=== PATIENT | male | born 1955 | race Two or more races ===

== ENCOUNTER 2020-08-04 07:38 | Outpatient (REF) | payer MEDICARE, SELFPAY ==
--- NOTE | 2020-08-04 | US_ITS ---
EXAMINATION: US RETROPERITONEAL LIMITED (AORTA) CLINICAL INFORMATION: Age 65. Former smoker. Assess for occult abdominal aortic aneurysm. COMPARISON: None. TECHNIQUE: Hamilton-scale, color Doppler and spectral Doppler evaluation of the abdominal aorta. FINDINGS: The measurements of the aorta in maximum AP and transverse dimensions respectively are as follows: FINDINGS: There is no aneurysmal enlargement. There is some focal ectasia proximal abdominal aorta under 3 cm as well as distal abdominal aorta under 3 cm. No periaortic mass or adenopathy. Aortic measurements are as follows: Proximal: 2.8 x 3.1 cm. Mid: 1.7 x 1.8 cm. Distal: 1.6 x 2.0 cm. PSV: 194 cm/s Common iliac arteries: Right: 1.0 x 1.2 cm. Left: 1.0 x 1.0 cm. IMPRESSION: 1. Aorta: Mild focal ectasia or proximal abdominal aorta and distal aorta. No aneurysmal enlargement. 2. Iliacs: Unremarkable.
== END 2020-08-04 07:39 | disposition home or self-care (01) ==
LOC: HO.US 07:38
PROVIDERS: Visit Provider Internal Medicine
DX: Z87.891 Personal history of nicotine dependence (principal)
CPT/HCPCS: 76706

== ENCOUNTER 2020-09-23 07:04 | Outpatient (REF) | payer MEDICARE, SELFPAY ==
[2020-09-23 07:50] LABS: Alanine Aminotransferase 26 U/L (0-40); Albumin Level 4.2 g/dL (3.5-5.0); Alkaline Phosphatase 82 U/L (39-117); Anion Gap 14 (12-20); Aspartate Amino Transferase 17 U/L (5-37); Bilirubin Total 0.5 mg/dL (0.0-1.0); Blood Urea Nitrogen 18 mg/dL (9-16); Carbon Dioxide 26 mmol/L (22-29); Chloride 106 mmol/L (96-108); Cholesterol 139 mg/dL; Estimated Glomerular Filt Rate > 60; Glucose Fasting 181 mg/dL (60-99); HDL Cholesterol 31 mg/dL; LDL Cholesterol Calculated 79 mg/dl; Potassium 4.8 mmol/l (3.3-5.1); Sodium 141 mmol/L (135-145); Total Protein 7.5 g/dL (6.5-8.0); Triglycerides 146 mg/dL
[2020-09-23 08:06] LABS: Creatinine Urine 74.36 mg/dL; Microalbum/Creatinine Ratio Ur 18.8 ug/mg cr
== END 2020-09-23 07:05 | disposition home or self-care (01) ==
LOC: HO.LAB 07:04
PROVIDERS: PCP Internal Medicine; Visit Provider Internal Medicine
DX: E11.42 Type 2 diabetes mellitus with diabetic polyneuropathy (principal)
CPT/HCPCS: 80053; 80061; 82043

== ENCOUNTER → 2020-10-04 11:42 | Outpatient (BNVA) | payer MEDICARE, SELFPAY | PROVIDERS: PCP Internal Medicine; Visit Provider Internal Medicine Endocrinology, Diabetes & Metabolism | DX: Z13.89 Encounter for screening for other disorder (principal) | CPT/HCPCS: Q3014 ==

== ENCOUNTER 2020-11-13 10:43 | Outpatient (REF) | payer MEDICARE, SELFPAY ==
--- NOTE | 2020-11-13 | US_ITS ---
EXAMINATION: US EXTRACRANIAL CAROTID DUPLEX, BILATERAL CLINICAL INFORMATION: This is a 65-year-old male with bilateral carotid artery stenosis. COMPARISON: Comparison is made to a previous study dated 10/07/2019 which demonstrated an occluded right internal carotid artery and 0-49% left internal carotid artery stenosis. TECHNIQUE: Real-time ultrasound and Doppler techniques (integrating B-mode 2-D vascular images, Doppler spectral analysis and color-flow Doppler imaging) were utilized to interrogate the extracranial carotid arteries, the vertebral arteries and proximal subclavian arteries bilaterally. The degree of stenosis is determined by criteria similar to NASCET. FINDINGS: Right Side: 1. There is moderate atherosclerotic plaque seen in the bifurcation/proximal ICA region. 2. The common carotid artery PSV proximally is 66 cm/s and distally 57 cm/s. 3. The proximal internal carotid artery is occluded. 4. The proximal external carotid artery PSV is 83 cm/s. 5. The vertebral artery shows antegrade flow. 6. The subclavian artery waveforms are normal. Left Side: 1. There is mild atherosclerotic plaque seen in the bifurcation/proximal ICA region. 2. The common carotid artery PSV proximally is 124 cm/s and distally 69 cm/s. 3. The proximal internal carotid artery velocities are 41 cm/s systolic and 12 cm/s diastolic. 4. The proximal external carotid artery PSV is 89 cm/s. 5. The vertebral artery shows antegrade flow. 6. The subclavian artery waveforms are normal. US/US carotid duplex BI IMPRESSION: 1. RIGHT: The right internal carotid artery is occluded. This appears unchanged when compared to the previous study dated 10/07/2019. 2. LEFT: Minimal, non-hemodynamically significant stenosis of the proximal left internal carotid artery corresponding to a 0-49% stenosis by velocity criteria. 3. There is no change in the category severity of disease when compared to the previous study dated 10/07/2019.
== END 2020-11-13 10:44 | disposition home or self-care (01) ==
LOC: HO.US 10:43
PROVIDERS: Visit Provider Surgery Vascular Surgery
DX: I65.23 Occlusion and stenosis of bilateral carotid arteries (principal)
CPT/HCPCS: 93880

== ENCOUNTER → 2020-11-21 13:52 | Outpatient (BNVA) | payer MEDICARE, SELFPAY | PROVIDERS: PCP Internal Medicine; Visit Provider Surgery Vascular Surgery | DX: I65.23 Occlusion and stenosis of bilateral carotid arteries (principal) | CPT/HCPCS: 99212 ==

== ENCOUNTER → 2021-02-28 10:45 | Outpatient (BNVA) | payer MEDICARE, SELFPAY | PROVIDERS: PCP Internal Medicine; Visit Provider Internal Medicine Endocrinology, Diabetes & Metabolism | DX: E11.29 Type 2 diabetes mellitus with other diabetic kidney complication (principal); E11.3513 Type 2 diabetes mellitus with proliferative diabetic retinopathy with macular edema, bilateral; E11.21 Type 2 diabetes mellitus with diabetic nephropathy; Z79.4 Long term (current) use of insulin; R80.9 Proteinuria, unspecified; G62.9 Polyneuropathy, unspecified; E55.9 Vitamin D deficiency, unspecified; E78.5 Hyperlipidemia, unspecified; I10 Essential (primary) hypertension | CPT/HCPCS: 82947; 99212 ==

== ENCOUNTER → 2021-04-03 10:58 | Outpatient (BNVA) | payer MEDICARE, SELFPAY | PROVIDERS: PCP Internal Medicine; Visit Provider Nurse Practitioner Gerontology | DX: E11.29 Type 2 diabetes mellitus with other diabetic kidney complication (principal); E11.3513 Type 2 diabetes mellitus with proliferative diabetic retinopathy with macular edema, bilateral; E11.21 Type 2 diabetes mellitus with diabetic nephropathy; E55.9 Vitamin D deficiency, unspecified; E78.5 Hyperlipidemia, unspecified; I10 Essential (primary) hypertension; R80.9 Proteinuria, unspecified; G62.9 Polyneuropathy, unspecified; Z79.4 Long term (current) use of insulin | CPT/HCPCS: 82947; 99212 ==

== ENCOUNTER → 2021-04-18 09:28 | Outpatient (BNVA) | payer MEDICARE, SELFPAY | PROVIDERS: PCP Internal Medicine; Visit Provider Nurse Practitioner Gerontology | CPT/HCPCS: Q3014 ==

== ENCOUNTER 2021-05-10 09:02 | Emergency (ER) | payer MEDICARE, SELFPAY ==
--- NOTE | ~2021-05-10 | XR_ITS ---
EXAMINATION: XR HUMERUS, LEFT CLINICAL INFORMATION: Left posterior biceps cellulitis COMPARISON: None TECHNIQUE: AP and lateral views of the left humerus. FINDINGS: The bones and soft tissues are normal. No fracture. Imaged portions of the shoulder and elbow are unremarkable. XR/XR humerus LT IMPRESSION: Unremarkable left humerus and the soft tissues.
[2021-05-10 09:21] VITALS: BP 120/76; PULSE 83; RESP 16; TEMP 36.4; O2SAT 98; BMI 28.4
--- NOTE | 2021-05-10 09:55 | ED_ITS ---
HPI - General Adult General Chief complaint: General Medical Stated complaint: Diabetic issue Time Seen by Provider: 05/10/21 09:32 Source: patient and family Mode of arrival: ambulatory Limitations: language barrier History of Present Illness HPI narrative: 65-year-old male with past medical history of diabetes who presents to the ED with left arm redness pain and swelling. Patient recently had a diabetic center to this area states he started to notice pain so removed on Friday. Since his noticed increased redness pain and swelling. Was instructed to come to the emergency department by hot man for acute evaluation. States he has been monitoring his sugars by POC checks and they have been within limits denies fevers chills chest pain shortness of breath. Related Data Previous Rx's Medication Instructions Recorded pantoprazole 40 mg tablet,delayed 40 mg PO DAILY #90 tab 08/22/20 release aspirin 81 mg tablet,delayed 81 mg PO DAILY 90 Days #90 tab 11/27/20 release sertraline 50 mg tablet 50 mg PO DAILY #90 tab 01/22/21 blood-glucose meter #1 ea 02/12/21 alcohol swabs 1 pad TOPICAL .8 times a day 30 02/28/21 Days #200 ea alpha lipoic acid 600 mg capsule 600 mg PO DAILY 30 Days #30 cap 02/28/21 atorvastatin 40 mg tablet 40 mg PO BEDTIME 90 Days #90 tab 02/28/21 blood sugar diagnostic #120 ea 02/28/21 cholecalciferol (vitamin D3) 50 50 mcg PO DAILY 30 Days #30 cap 02/28/21 mcg (2,000 unit) capsule cyanocobalamin (vitamin B-12) 100 100 mcg PO DAILY 30 Days #30 tab 02/28/21 mcg tablet empagliflozin 25 mg tablet 25 mg PO DAILY 90 Days #90 tab 02/28/21 enalapril maleate 5 mg tablet 5 mg PO DAILY #90 tab 02/28/21 insulin aspart U-100 100 unit/mL 18 unit SUBCUT TID 90 Days #60 ml 02/28/21 (3 mL) subcutaneous pen insulin glargine 100 unit/mL (3 42 unit SUBCUT DAILY 90 Days #45 ml 02/28/21 mL) subcutaneous pen lancets 28 gauge #120 ea 02/28/21 metformin 500 mg tablet 500 mg PO BID 90 Days #180 tab 02/28/21 pen needle, diabetic 32 gauge x #400 ea 02/28/21 1/6 sitagliptin 100 mg tablet 100 mg PO DAILY 90 Days #90 tab 02/28/21 flash glucose scanning reader #1 ea 04/18/21 pregabalin 75 mg capsule 75 mg PO BEDTIME 30 Days #30 cap 04/18/21 cephalexin 500 mg PO QID #40 cap 05/10/21 Allergies Allergy/AdvReac Type Severity Reaction Status Date / Time CRUSTACEANS Allergy Severe SWELLING Uncoded 04/18/21 10:43 TO MOUTH Review of Systems Review of Systems: Constitutional : No Weight loss, No Fever, No Chills, No Night Sweats, No Fatigue, No Malaise ENT/Mouth : No Hearing loss, No Ear Pain, No Nasal Congestion, No Sinus Pain, No Hoarseness, No sore throat, No Rhinorrhea, No Swallowing Difficulty Eyes: No Eye Pain, No Swelling, No Redness, No Foreign Body, No Discharge, No Vision Changes Cardiovascular : No Chest Pain, No SOB, No Dyspnea on Exertion, No Orthopnea, No Edema, No Palpitations Respiratory : No Cough, No Sputum, No Wheezing, No Smoke Exposure, No Dyspnea Gastrointestinal : No Nausea, No Vomiting, No Diarrhea, No Constipation, No abdominal Pain, No Hematochezia, No Melena Genitourinary : no irregular bleeding, No Dysuria, No Urinary Frequency, No Hematuria, No Urinary Incontinence, No Urgency, No Flank Pain, No Urinary Flow Changes, No Hesitancy Musculoskeletal : No joint pain, No Myalgias, No Joint Swelling Skin : No Skin Lesions, + rash Neuro : No Weakness, No Numbness, No Paresthesias, No Loss of Consciousness, No Dizziness, No Headache Psych : No Anxiety/Panic, No Depression, No SI/HI/AH/VH, No Social Issues, Heme/Lymph: No Bruising, No Bleeding,No Lymphadenopathy Endocrine : No Polyuria, No Polydipsia, No Temperature Intolerance [facility] Past Medical History Attestation statement: The following information was validated with the patient. Source: old records reviewed and obtained from family Medical History B12 deficiency Diabetes mellitus Diabetic nephropathy associated with type 2 diabetes mellitus Dyslipidemia Hypertension Neuropathy Proliferative diabetic retinopathy associated with type 2 diabetes mellitus Right carotid artery occlusion Vitamin D deficiency Surgical History No pertinent past surgical history Family History Family History Father Heart disease Mother HTN (hypertension) Social History Social History Housing: Apartment Alcohol intake: former Patient Tobacco Use Status: Former Tobacco user Tobacco use type: Cigarette e-Cigarette/Vaping Use: Never Used Second Hand Smoke Exposure: No Advance Directives: No Advance Directives Information Provided: Yes service: No Current occupational status: disabled Physical Exam Vital Signs: Vital Signs: Last Vital Signs Temp 97.6 F 05/10/21 09:21 Pulse 83 05/10/21 09:21 Resp 16 05/10/21 09:21 BP 120/76 05/10/21 09:21 Pulse Ox 98 05/10/21 09:21 Body Mass Index 28.4 vital signs have been reviewed as normal and appeared to be correct. Blood pressure normal. Heart rate normal. Respiration rate normal. Temperature normal. Oxygen saturation normal. Appearance: Alert. Oriented X3. No acute distress. Head: Normal external exam. Normocephalic. Atraumatic. No Bravo signs noted. No raccoon eyes noted Eyes: Conjunctiva and sclera normal. ENT: EAC normal. Moist mucous membranes. No drooling noted. No muffled voice noted. Neck: Normal inspection. Neck supple. FROM. No meningeal signs. CVS: Pulses normal throughout. Respiratory: No respiratory distress. Painless inspiration. No accessory muscle usage noted Abdomen: No visible injury noted. Back: Full range of motion noted. Skin: Skin warm and dry. Normal skin color. Normal skin turgor. Extremities: No lower extremity edema. Extremities exhibit normal range of motion. Patient with mild edema to left posterior biceps region with mild surrounding erythema no streaking noted. Tenderness to palpation with indur ation no central fluctuance no active drainage or discharge from the site itself. Neuro: Oriented X 3. No motor deficit. No sensory deficit. Course Course Course Narrative: Patient's x-ray without evidence of retained foreign body at this time will discharge with continued antibiotics and strict return precautions family is comfortable with this plan. Medical Decision Making MDM Narrative Medical decision making narrative: Patient's vital signs are stable and he is afebrile. Patient presenting to the ED with left upper arm redness pain swelling since removing a diabetic sensor or approximately 5 days ago. On exam patient has clinical signs of cellulitis without central fluctuance do not think there is an underlying abscess that would benefit from drainage.. Given potential retained small center needle will obtain an x-ray of this region due to the absence of retained foreign body. Ultimately will prescribe Keflex and discharged with close outpatient follow-up if imaging is normal patient comfortable with this plan will continue to monitor. Discharge Plan Discharge Clinical Impression: Cellulitis Qualifiers: Site of cellulitis: extremity Site of cellulitis of extremity: upper extremity Laterality: left Qualified Code(s): L03.114 - Cellulitis of left upper limb Patient Disposition: Home, Self-Care Additional Instructions: You were seen in the emergency department today for redness pain and swelling to the left arm. There is signs of early infection and you will be treated with antibiotics. You may need to return to the ED if in 2-3 days the redness pain or swelling is getting worse there is no abscess to drain at this time but this may develop watch your symptoms closely. An x-ray was taken without evidence of retained needle which is reassuring Prescriptions: New cephalexin 500 mg capsule 500 mg PO QID Qty: 40 RF: 0 No Action pantoprazole 40 mg tablet,delayed release (DR/EC) 40 mg PO DAILY Qty: 90 RF: 0 sertraline 50 mg tablet 50 mg PO DAILY Qty: 90 RF: 3 (DME) blood-glucose meter [FreeStyle [place]] Kit See Rx Instructions .ROUTE .MEDSUPPLY Qty: 1 RF: 0 pregabalin 75 mg capsule 75 mg PO BEDTIME 30 Days Qty: 30 RF: 0 aspirin [Adult Aspirin Regimen] 81 mg tablet,delayed release (DR/EC) 81 mg PO DAILY 90 Days Qty: 90 RF: 3 (DME) FreeStyle [place] [address] [place] [facility] See Rx Instructions .ROUTE .MEDSUPPLY Qty: 1 RF: 0 alcohol swabs [Alcohol Prep Pads] Pads, Medicated 1 pad topical .8 times a day 30 Days Qty: 200 RF: 6 alpha lipoic acid 600 mg capsule 600 mg PO DAILY 30 Days Qty: 30 RF: 6 atorvastatin 40 mg tablet 40 mg PO BEDTIME 90 Days Qty: 90 RF: 3 (DME) FreeStyle Test Strip See Rx Instructions .ROUTE .MEDSUPPLY Qty: 120 RF: 11 cholecalciferol (vitamin D3) 50 mcg (2,000 unit) capsule 50 mcg PO DAILY 30 Days Qty: 30 RF: 6 cyanocobalamin (vitamin B-12) 100 mcg tablet 100 mcg PO DAILY 30 Days Qty: 30 RF: 6 Jardiance 25 mg tablet 25 mg PO DAILY 90 Days Qty: 90 RF: 1 enalapril maleate 5 mg tablet 5 mg PO DAILY Qty: 90 RF: 3 insulin aspart U-100 [Novolog Flexpen U-100 Insulin] 100 unit/mL (3 mL) insulin pen 18 unit subcut TID 90 Days Qty: 60 RF: 1 Lantus Solostar U-100 Insulin 100 unit/mL (3 mL) insulin pen 42 unit subcut DAILY 90 Days Qty: 45 RF: 1 (DME) lancets [FreeStyle Lancets] 28 gauge misc See Rx Instructions .ROUTE .MEDSUPPLY Qty: 120 RF: 11 metformin 500 mg tablet 500 mg PO BID 90 Days Qty: 180 RF: 2 (DME) pen needle, diabetic 32 gauge x 1/6 needle See Rx Instructions .ROUTE .MEDSUPPLY Qty: 400 RF: 2 Januvia 100 mg tablet 100 mg PO DAILY 90 Days Qty: 90 RF: 2 Referrals: Tami King MD [Primary Care Provider] - 2 days Interventions: ED Discharge Assessment Last Done: 05/10/21 10:36 Discharge Date/Time: 05/10/21 10:30 Print Language: Thai
[2021-05-10] MEDS: cephALEXin 500 MG CAPSULE PO (10:21)
== END 2021-05-10 10:30 | disposition home or self-care (01) ==
PROVIDERS: Emergency Provider Emergency Medicine Emergency Medical Services; PCP Internal Medicine
DX: L03.114 Cellulitis of left upper limb (principal); M79.602 Pain in left arm; I10 Essential (primary) hypertension; E11.9 Type 2 diabetes mellitus without complications; Z79.4 Long term (current) use of insulin; Z86.73 Personal history of transient ischemic attack (TIA), and cerebral infarction without residual deficits
CPT/HCPCS: 73060; 99283

== ENCOUNTER 2021-05-18 06:55 | Outpatient (REF) | payer MEDICARE, SELFPAY ==
[2021-05-18 07:37] LABS: MANUAL DIFF FLAG NO
[2021-05-18 07:41] LABS: Basophils Absolute Auto 0.1 X10*3/uL (0.0-0.2); Eosinophils Absolute Auto 0.5 X10*3/uL (0.0-0.4); Eosinophils Percent Auto 6.7 % (0-4); Hemoglobin 14.1 g/dl (14.0-18.0); Imm Gran Abs Auto 0.02 X10*3/uL (0.00-0.03); Imm Gran Pct Auto 0.3 % (0.0-0.4); Lymphocytes Percent Auto 26.6 % (20-40); Mean Corpuscular HGB Conc 31.3 g/dl (31.0-36.0); Mean Corpuscular Hemoglobin 26.1 pg (27.0-33.0); Mean Corpuscular Volume 83.3 fL (80-98); Mean Platelet Volume 10.9 fL (9.4-12.4); Monocytes Absolute Auto 0.5 X10*3/uL (0.1-1.2); Monocytes Percent Auto 6.7 % (2-11); Neutrophils Absolute Auto 4.5 X10*3/uL (2.0-8.3); Neutrophils Percent Auto 58.7 % (45-73); Platelet Count 236 X10*3/uL (160-400); Red Cell Distribution Width 13.9 % (11.0-16.0); White Blood Count 7.6 X10*3/uL (4.8-10.8)
[2021-05-18 08:03] LABS: Alanine Aminotransferase 30 U/L (0-40); Albumin Level 4.3 g/dL (3.5-5.0); Alkaline Phosphatase 104 U/L (39-117); Anion Gap 12 (12-20); Aspartate Amino Transferase 21 U/L (5-37); Bilirubin Total 0.2 mg/dL (0.0-1.0); Blood Urea Nitrogen 16 mg/dL (9-16); Calcium 9.9 mg/dL (8.4-10.2); Carbon Dioxide 26 mmol/L (22-29); Chloride 109 mmol/L (96-108); Cholesterol 130 mg/dL; Estimated Glomerular Filt Rate 55; Glucose Fasting 167 mg/dL (60-99); HDL Cholesterol 29 mg/dL; LDL Cholesterol Calculated 73 mg/dl; Potassium 4.9 mmol/L (3.3-5.1); Sodium 142 mmol/L (135-145); Total Protein 7.5 g/dL (6.5-8.0); Triglycerides 144 mg/dL
[2021-05-18 08:36] LABS: Folate 16.1 ng/mL (> or = 4.0); Vitamin B12 574 pg/mL (200-900)
[2021-05-18 08:49] LABS: Creatinine Urine 81.48 mg/dL; Microalbum/Creatinine Ratio Ur 23.3 ug/mg cr
[2021-05-22 12:52] LABS: Vitamin D 25-OH, D2 <4 ng/mL; Vitamin D 25-OH, D3 41 ng/mL; Vitamin D 25-OH, Total 41 ng/mL (30-100)
== END 2021-05-18 06:56 | disposition home or self-care (01) ==
LOC: HO.LAB 06:55
PROVIDERS: PCP Internal Medicine; Visit Provider Internal Medicine
DX: E11.29 Type 2 diabetes mellitus with other diabetic kidney complication (principal); R80.9 Proteinuria, unspecified; E78.5 Hyperlipidemia, unspecified; E55.9 Vitamin D deficiency, unspecified; E53.8 Deficiency of other specified B group vitamins; Z79.4 Long term (current) use of insulin
CPT/HCPCS: 36415; 80053; 80061; 82043; 82306; 82607; 82746; 85025

== ENCOUNTER → 2021-07-31 11:04 | Outpatient (BNVA) | payer MEDICARE, SELFPAY | PROVIDERS: PCP Internal Medicine; Visit Provider Nurse Practitioner Gerontology | DX: E11.29 Type 2 diabetes mellitus with other diabetic kidney complication (principal); E11.3513 Type 2 diabetes mellitus with proliferative diabetic retinopathy with macular edema, bilateral; E11.21 Type 2 diabetes mellitus with diabetic nephropathy; E55.9 Vitamin D deficiency, unspecified; E78.5 Hyperlipidemia, unspecified; I10 Essential (primary) hypertension; R80.9 Proteinuria, unspecified; G62.9 Polyneuropathy, unspecified; Z79.4 Long term (current) use of insulin | CPT/HCPCS: 82947; 99212 ==

== ENCOUNTER 2021-08-06 15:53 | Outpatient (REF) | payer MEDICARE, SELFPAY ==
--- NOTE | ~2021-08-06 | MR_ITS ---
EXAMINATION: MR BRAIN WITHOUT CONTRAST CLINICAL INFORMATION: Cerebral infarction, unspecified. COMPARISON: Head CT 04/08/2015. Carotid ultrasound 11/13/2020. TECHNIQUE: Multiplanar, multisequence imaging of the brain was performed without intravenous contrast. FINDINGS: There is no acute infarction, hemorrhage, mass, or extra-axial fluid collection. There is chronic infarction within the right parietal lobe and to lesser extent involving the posterior temporal lobe with encephalomalacic and gliotic changes. Additional chronic infarction is seen within the right frontal lobe, anterior inferior temporal lobe, insula as well as involving the operculum. Moderate patchy T2/FLAIR hyperintensity is seen within the cerebral white matter compatible chronic microangiopathy. The ventricles and sulci are commensurate. There is no hydrocephalus. The cerebellar tonsils are normally positioned above the foramen magnum. There is mild paranasal sinus mucosal thickening. The cervical right ICA flow void is absent compatible with known chronic occlusion. Moderate paranasal sinus mucosal thickening is noted. MR/MR head/brain wo con IMPRESSION: No acute intracranial abnormality. Chronic infarcts are seen within the right cerebral hemisphere predominantly involving the frontal lobe, anterior temporal lobe, insula, and parietal lobe. Chronically occluded cervical right ICA is redemonstrated. Moderate paranasal sinus mucosal thickening.
== END 2021-08-06 15:54 | disposition home or self-care (01) ==
LOC: HO.MRI 15:53
PROVIDERS: Visit Provider Psychiatry & Neurology Neurology
DX: F06.8 Other specified mental disorders due to known physiological condition (principal); I65.21 Occlusion and stenosis of right carotid artery; I63.40 Cerebral infarction due to embolism of unspecified cerebral artery
CPT/HCPCS: 70551

== ENCOUNTER 2021-11-19 13:15 | Outpatient (REF) | payer MEDICARE, SELFPAY ==
--- NOTE | ~2021-11-19 | US_ITS ---
EXAMINATION: US EXTRACRANIAL CAROTID DUPLEX, BILATERAL CLINICAL INFORMATION: Carotid artery stenosis COMPARISON: Carotid ultrasound 11/13/2020 TECHNIQUE: Real-time ultrasound and Doppler techniques (integrating B-mode 2-D vascular images, Doppler spectral analysis and color-flow Doppler imaging) were utilized to interrogate the extracranial carotid arteries, the vertebral arteries and proximal subclavian arteries bilaterally. The degree of stenosis is determined by criteria similar to NASCET. FINDINGS: Right Side: 1. There is calcified atherosclerotic plaque seen in the bifurcation/proximal ICA region. 2. The common carotid artery PSV proximally is 81 cm/s and distally 62 cm/s. 3. The internal carotid artery is occluded. 4. The proximal external carotid artery PSV is 139 cm/s. 5. The vertebral artery shows antegrade flow. 6. The subclavian artery waveforms are normal. Left Side: 1. There is calcified atherosclerotic plaque seen in the bifurcation/proximal ICA region. 2. The common carotid artery PSV proximally is 126 cm/s and distally 97 cm/s. 3. The proximal internal carotid artery velocities are 63 cm/s systolic and 18 cm/s diastolic. 4. The proximal external carotid artery PSV is 120 cm/s. 5. The vertebral artery shows antegrade flow. 6. The subclavian artery waveforms are normal. US/US carotid duplex BI IMPRESSION: 1. RIGHT: The right internal carotid artery is occluded. 2. LEFT: Minimal, non-hemodynamically significant stenosis of the proximal left internal carotid artery corresponding to a 0-49% stenosis by velocity criteria. 3. There is no change in the category severity of disease when compared to the previous study dated 11/13/20.
== END 2021-11-19 13:16 | disposition home or self-care (01) ==
LOC: HO.US 13:15
PROVIDERS: PCP Internal Medicine; Visit Provider Surgery Vascular Surgery
DX: I65.23 Occlusion and stenosis of bilateral carotid arteries (principal)
CPT/HCPCS: 93880

== ENCOUNTER → 2021-11-20 12:39 | Outpatient (BNVA) | payer MEDICARE, SELFPAY | PROVIDERS: PCP Internal Medicine; Visit Provider Surgery Vascular Surgery | DX: I65.23 Occlusion and stenosis of bilateral carotid arteries (principal) | CPT/HCPCS: 99212 ==

== ENCOUNTER → 2021-11-23 08:55 | Outpatient (BNVA) | payer MEDICARE, SELFPAY | PROVIDERS: PCP Internal Medicine; Visit Provider Nurse Practitioner Gerontology | DX: E11.29 Type 2 diabetes mellitus with other diabetic kidney complication (principal); E11.42 Type 2 diabetes mellitus with diabetic polyneuropathy; E11.21 Type 2 diabetes mellitus with diabetic nephropathy; E11.3513 Type 2 diabetes mellitus with proliferative diabetic retinopathy with macular edema, bilateral; E78.5 Hyperlipidemia, unspecified; I10 Essential (primary) hypertension; E55.9 Vitamin D deficiency, unspecified; Z79.4 Long term (current) use of insulin; Z79.899 Other long term (current) drug therapy | CPT/HCPCS: Q3014 ==

== ENCOUNTER 2021-12-05 11:23 | Emergency (ER) | payer MEDICARE, SELFPAY ==
[2021-12-05 11:31] VITALS: BP 157/90; BP 163/86; PULSE 76; PULSE 79; RESP 18; TEMP 36.7; O2SAT 100; O2SAT 99; BMI 29.9
--- NOTE | 2021-12-05 11:58 | ED_ITS ---
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 Mode of arrival: ambulatory Limitations: no limitations History of Present Illness MD elicited complaint: dizziness and difficulty walking Pertinent past history: other (chronic since prior strokes known chronically o ccluded R ICA on aspirin) Onset (ago): hour(s) (11 am) Timing: sudden onset Severity: moderate Description: off-balance Context: change in body position History of similar symptoms: Yes Exacerbating factors: movement/ambulation and change in body position Relieving factors: nothing Associated symptoms: denies other symptoms Associated neuro symptoms: other (all symptoms resolved just seen at [facility] for same DC on 12/01 - negative MRI for stroke) Related Data Previous Rx's Medication Instructions Recorded sertraline 50 mg tablet 50 mg PO DAILY #90 tab 01/22/21 blood-glucose meter (FreeStyle #1 ea 02/12/21 [place]) alcohol swabs (Alcohol Prep Pads) 1 pad TOPICAL .8 times a day 30 02/28/21 Days #200 ea alpha lipoic acid 600 mg capsule 600 mg PO DAILY 30 Days #30 cap 02/28/21 atorvastatin 40 mg tablet 40 mg PO BEDTIME 90 Days #90 tab 02/28/21 enalapril maleate 5 mg tablet 5 mg PO DAILY #90 tab 02/28/21 lancets 28 gauge (FreeStyle #120 ea 02/28/21 Lancets) metformin 500 mg tablet 500 mg PO BID 90 Days #180 tab 02/28/21 flash glucose scanning reader #1 ea 04/18/21 (FreeStyle Jennifer 2 Robinson) blood sugar diagnostic (FreeStyle #120 ea 06/26/21 Test) sitagliptin 100 mg tablet (Januvia) 100 mg PO DAILY #90 tab 10/16/21 empagliflozin 25 mg tablet 25 mg PO DAILY 90 Days #90 tab 10/25/21 (Jardiance) pen needle, diabetic 32 gauge x #400 ea 10/25/2110/25 aspirin 81 mg tablet,delayed 81 mg PO DAILY 90 Days #90 tab 11/15/21 release (Adult Aspirin Regimen) cholecalciferol (vitamin D3) 50 50 mcg PO DAILY 30 Days #30 cap 11/15/21 mcg (2,000 unit) capsule cyanocobalamin (vitamin B-12) 100 100 mcg PO DAILY 30 Days #30 tab 11/15/21 mcg tablet pantoprazole 40 mg tablet,delayed 40 mg PO BID 90 Days #180 tab 11/15/21 release pregabalin 75 mg capsule 75 mg PO BEDTIME 30 Days #30 cap 11/15/21 insulin aspart U-100 100 unit/mL See Rx Instructions SUBCUT TID 90 11/23/21 (3 mL) subcutaneous pen (Novolog Days #64.8 ml Flexpen U-100 Insulin aspart) insulin glargine 100 unit/mL (3 56 unit (0.56 mL) SUBCUT DAILY 90 11/23/21 mL) subcutaneous pen (Lantus Days #50.4 ml Solostar U-100 Insulin) Allergies Allergy/AdvReac Type Severity Reaction Status Date / Time No Known Allergies Allergy Verified 12/05/21 11:39 Review of Systems Review of Systems: Constitutional : No Weight loss, No Fever, No Chills, No Fatigue, No Malaise ENT/Mouth : No sore throat, No Rhinorrhea Eyes: No Eye Pain, No Swelling, No Redness Cardiovascular : No Chest Pain, No SOB, No Dyspnea on Exertion, No Orthopnea, No Edema, No Palpitations Respiratory : No Cough, No Sputum, No Wheezing Gastrointestinal : No Nausea, No Vomiting, No Diarrhea, No Constipation, No abdominal Pain, No Hematochezia, No Melena Genitourinary : No Dysuria, No Urinary Frequency, No Hematuria, Musculoskeletal : No joint pain, No Myalgias, No Joint Swelling Skin : No Skin Lesions, No rash Neuro : No Weakness, No Numbness, pos Dizziness, No Headache Psych : No Anxiety/Panic, No Depression Heme/Lymph: No Bruising, No Bleeding,No Lymphadenopathy Endocrine : No Polyuria, No Polydipsia All other systems reviewed and are negative PMFSH Past Medical History Attestation statement: The following information was validated with the patient. 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 Vitamin D deficiency Surgical History No pertinent past surgical history Family History Family History Father Heart disease Mother HTN (hypertension) Social History Social History Household Members: Spouse Housing: Apartment Alcohol intake: never Patient Tobacco Use Status: Former Tobacco user Tobacco use type: Cigarette e-Cigarette/Vaping Use: Never Used Second Hand Smoke Exposure: No Use of substances other than those prescribed or required for medical reasons: No Advance Directives: No Advance Directives Information Provided: Yes service: No Current occupational status: disabled Physical Exam Vital Signs: Vital Signs: Last Vital Signs Temp 98.1 F 12/05/21 11:31 Pulse 79 12/05/21 11:31 Resp 18 12/05/21 11:31 BP 163/86 H 12/05/21 11:31 Pulse Ox 99 12/05/21 11:31 BMI result Body Mass Index 29.9 Appearance: Alert. Oriented X3. No acute distress. Eyes: Pupils equal, round and reactive to light. ENT: Pharynx normal. Neck: Normal inspection. Neck supple. CVS: Normal heart rate and rhythm. Pulses normal. Respiratory: No respiratory distress. Breath sounds normal. Abdomen: Soft and non-tender. Skin: Skin warm and dry. Normal skin color. Normal skin turgor. Extremities: No lower extremity edema. No calf ttp Neuro: Oriented X 3. No motor deficit. No sensory deficit. no drift Course Course Course Narrative: NEGATIVE WORKUP stable for DC MDM - Dizziness MDM Narrative Medical decision making narrative: 66 yo male with known CVA no deficits, chronic R ICA occlusion, DM, GERD, HLD on aspirin but not on plavix comes in with repeat bouts of dizziness since prior stroke usually associated with getting up suspect due to his chronically occluded ICA - he is on aspirin only. At this time symptoms resolved BP stable discussed starting plavix as he was just seen at [facility] 12/01 negative MRI for new stroke recommended he start on Plavix - at this time I did encourage him to start on plavix. I doubt a new stroke did discuss maybe seeing his vascular surgeon at [facility] [place] to see if there are any new options for treatment. We talked about getting up slowly to prevent dizzy episodes. Lab Data Result diagrams: 12/05/21 12:29 12/05/21 12:29 Labs: Lab Results 12/05/21 12/05/21 12/05/21 Range/Units 12:29 12:29 12:29 WBC 6.5 (4.8-10.8) X10*3/uL RBC 5.06 (4.60-5.80) X10*6/uL Hgb 13.4 L (14.0-18.0) g/dl Hct 42.2 (42.0-52.0) % MCV 83.4 (80.0-98.0) fL MCH 26.5 L (27.0-33.0) pg MCHC 31.8 (31.0-36.0) g/dl RDW 14.0 (11.0-16.0) % Plt Count 218 (160-400) X10*3/uL MPV 10.1 (9.4-12.4) fL Immature Gran % (Auto) 0.2 (0.0-0.4) % Neut % (Auto) 55.6 (45-73) % Lymph % (Auto) 31.0 (20-40) % [place] % (Auto) 6.9 (2-11) % Eos % (Auto) 5.2 H (0-4) % Baso % (Auto) 1.1 (0-2) % Lymph # (Auto) 2.0 (1.2-4.9) X10*3/uL [place] # (Auto) 0.5 (0.1-1.2) X10*3/uL Eos # (Auto) 0.3 (0.0-0.4) X10*3/uL Baso # (Auto) 0.1 (0.0-0.2) X10*3/uL Abs Immat Gran (auto) 0.01 (0.00-0.03) X10*3/uL Absolute Neuts (auto) 3.6 (2.0-8.3) x10*3/uL Absolute Nucleated RBC 0.000 (0.0-0.012) X10*3/uL Nucleated RBC % (auto) 0.0 (0.0-0.2) /100WBC Sodium 142 (135-145) mmol/L Potassium 4.9 (3.3-5.1) mmol/L Chloride 107 (96-108) mmol/L Carbon Dioxide 31 H (22-29) mmol/L Anion Gap 9 L (12-20) BUN 16 (9-16) mg/dL Creatinine 1.14 (0.5-1.4) mg/dL Estim Creat Clear Calc 67.2 Estimated GFR > 60 Random Glucose 183 H (60-115) mg/dL Calcium 9.4 (8.4-10.2) mg/dL Troponin I High Sens < 3.5 (<3.5-35.0) ng/L ECG Data Attestation: I personally reviewed and interpreted this ECG as follows: ECG interpretation date: 12/05/21 ECG interpretation time: 12:45 Interpretation: Rate: 69 Rhythm: NSR [place]: normal Normal P waves. Normal EVELIN. Normal QRS complex. ST T wave : normal no FAVIOLA qTC: normal prior studies: no acute ischemia The study has been interpreted contemporaneously by me. . Discharge Plan Discharge Clinical Impression: Dizziness Carotid artery, internal, occlusion Qualifiers: Laterality: right Qualified Code(s): I65.21 - Occlusion and stenosis of right c arotid artery Patient Disposition: Home, Self-Care Instructions: Carotid Artery Disease (DC), Dizziness (ED) Additional Instructions: return to ED for any worsening symptoms or concerns TAKE ASPIRIN AND PLAVIX [address] [phone] Prescriptions: No Action sertraline 50 mg tablet 50 mg PO DAILY Qty: 90 3RF (DME) blood-glucose meter [FreeStyle [place]] Kit See Rx Instructions .ROUTE .MEDSUPPLY Qty: 1 0RF Rx Instructions: As directed (DME) FreeStyle Test Strip See Rx Instructions .ROUTE .MEDSUPPLY Qty: 120 11RF Rx Instructions: 4 times a day Januvia 100 mg tablet 100 mg PO DAILY Qty: 90 3RF (DME) pen needle, diabetic 32 gauge x 1/6 needle See Rx Instructions .ROUTE .MEDSUPPLY Qty: 400 2RF Rx Instructions: 4 times a day Jardiance 25 mg tablet 25 mg PO DAILY 90 Days Qty: 90 1RF pregabalin 75 mg capsule 75 mg PO BEDTIME 30 Days Qty: 30 0RF aspirin [Adult Aspirin Regimen] 81 mg tablet,delayed release (DR/EC) 81 mg PO DAILY 90 Days Qty: 90 3RF cholecalciferol (vitamin D3) 50 mcg (2,000 unit) capsule 50 mcg PO DAILY 30 Days Qty: 30 6RF cyanocobalamin (vitamin B-12) 100 mcg tablet 100 mcg PO DAILY 30 Days Qty: 30 6RF pantoprazole 40 mg tablet,delayed release (DR/EC) 40 mg PO BID 90 Days Qty: 180 0RF (DME) FreeStyle Jennifer 2 [place] Misc See Rx Instructions .ROUTE .MEDSUPPLY Qty: 1 0RF Rx Instructions: As directed alcohol swabs [Alcohol Prep Pads] Pads, Medicated 1 pad topical .8 times a day 30 Days Qty: 200 6RF alpha lipoic acid 600 mg capsule 600 mg PO DAILY 30 Days Qty: 30 6RF atorvastatin 40 mg tablet 40 mg PO BEDTIME 90 Days Qty: 90 3RF enalapril maleate 5 mg tablet 5 mg PO DAILY Qty: 90 3RF (DME) lancets [FreeStyle Lancets] 28 gauge misc See Rx Instructions .ROUTE .MEDSUPPLY Qty: 120 11RF Rx Instructions: 4 times a day metformin 500 mg tablet 500 mg PO BID 90 Days Qty: 180 2RF Lantus Solostar U-100 Insulin 100 unit/mL (3 mL) insulin pen 56 unit subcut DAILY 90 Days Qty: 50.4 1RF insulin aspart U-100 [Novolog Flexpen U-100 Insulin] 100 unit/mL (3 mL) insulin pen See Rx Instructions subcut TID 90 Days Qty: 64.8 1RF Rx Instructions: 18 units before breakfast and 24 units before lunch and dinner subcut 3 times a day; Print Language: Mauritian
--- NOTE | 2021-12-05 12:21 | ECG_ITS ---
Test Reason : FALL Blood Pressure : / mmHG Vent. Rate : 069 BPM Atrial Rate : 069 BPM P-R Int : 174 ms QRS Dur : 106 ms QT Int : 392 ms P-R-T Axes : 043 005 040 degrees QTc Int : 420 ms Normal sinus rhythm Cannot rule out Inferior infarct , age undetermined Abnormal ECG When compared with ECG of 10-MAY-2019 08:28, No significant change was found Referred By: Essie Florez Electronically Signed By:RESHMA HARPER MD
--- NOTE | 2021-12-05 12:34 | PC.NURSE ---
patient a&o, family at bedside, pt vss, bus monitor applied, labs drawn, ekg performed, call gilbert within reach, will continue to monitor.
[2021-12-05 12:40] LABS: MANUAL DIFF FLAG NO
[2021-12-05 12:41] LABS: Basophils Absolute Auto 0.1 X10*3/uL (0.0-0.2); Basophils Percent Auto 1.1 % (0-2); Eosinophils Absolute Auto 0.3 X10*3/uL (0.0-0.4); Eosinophils Percent Auto 5.2 % (0-4); Hematocrit 42.2 % (42.0-52.0); Hemoglobin 13.4 g/dl (14.0-18.0); Imm Gran Abs Auto 0.01 X10*3/uL (0.00-0.03); Imm Gran Pct Auto 0.2 % (0.0-0.4); Mean Corpuscular HGB Conc 31.8 g/dl (31.0-36.0); Mean Corpuscular Hemoglobin 26.5 pg (27.0-33.0); Mean Corpuscular Volume 83.4 fL (80.0-98.0); Mean Platelet Volume 10.1 fL (9.4-12.4); Monocytes Absolute Auto 0.5 X10*3/uL (0.1-1.2); Monocytes Percent Auto 6.9 % (2-11); Neutrophils Absolute Auto 3.6 x10*3/uL (2.0-8.3); Neutrophils Percent Auto 55.6 % (45-73); Platelet Count 218 X10*3/uL (160-400); Red Blood Count 5.06 X10*6/uL (4.60-5.80); White Blood Count 6.5 X10*3/uL (4.8-10.8)
[2021-12-05 12:59] LABS: Anion Gap 9 (12-20); Blood Urea Nitrogen 16 mg/dL (9-16); Calcium 9.4 mg/dL (8.4-10.2); Carbon Dioxide 31 mmol/L (22-29); Chloride 107 mmol/L (96-108); Creatinine Clr Calc Pharmacy 67.2; Estimated Glomerular Filt Rate > 60; Glucose Random 183 mg/dL (60-115); Potassium 4.9 mmol/L (3.3-5.1); Sodium 142 mmol/L (135-145)
[2021-12-05 13:04] LABS: Troponin-I High Sensitivity < 3.5 ng/L (<3.5-35.0)
== END 2021-12-05 13:25 | disposition home or self-care (01) ==
PROVIDERS: Emergency Provider Emergency Medicine
DX: I65.21 Occlusion and stenosis of right carotid artery (principal); R42 Dizziness and giddiness; I10 Essential (primary) hypertension; E78.5 Hyperlipidemia, unspecified; E11.9 Type 2 diabetes mellitus without complications; Z79.4 Long term (current) use of insulin; Z79.02 Long term (current) use of antithrombotics/antiplatelets; Z79.82 Long term (current) use of aspirin
CPT/HCPCS: 36415; 80048; 84484; 85025; 93005; 99283; 99284

== ENCOUNTER 2021-12-10 06:16 | Outpatient (REF) | payer MEDICARE, SELFPAY ==
[2021-12-10 06:30] LABS: MANUAL DIFF FLAG NO
[2021-12-10 06:52] LABS: Basophils Absolute Auto 0.1 X10*3/uL (0.0-0.2); Eosinophils Absolute Auto 0.5 X10*3/uL (0.0-0.4); Hematocrit 46.7 % (42.0-52.0); Imm Gran Abs Auto 0.02 X10*3/uL (0.00-0.03); Imm Gran Pct Auto 0.3 % (0.0-0.4); Lymphocytes Absolute Auto 2.1 X10*3/uL (1.2-4.9); Lymphocytes Percent Auto 30.4 % (20-40); Mean Corpuscular HGB Conc 32.1 g/dl (31.0-36.0); Mean Corpuscular Hemoglobin 26.6 pg (27.0-33.0); Mean Corpuscular Volume 82.8 fL (80.0-98.0); Mean Platelet Volume 10.6 fL (9.4-12.4); Monocytes Absolute Auto 0.5 X10*3/uL (0.1-1.2); Monocytes Percent Auto 7.4 % (2-11); Neutrophils Absolute Auto 3.8 x10*3/uL (2.0-8.3); Neutrophils Percent Auto 53.9 % (45-73); Platelet Count 250 X10*3/uL (160-400); Red Blood Count 5.64 X10*6/uL (4.60-5.80); Red Cell Distribution Width 13.9 % (11.0-16.0); White Blood Count 7.1 X10*3/uL (4.8-10.8)
[2021-12-10 07:10] LABS: Alanine Aminotransferase 31 U/L (0-40); Albumin Level 4.2 g/dL (3.5-5.0); Alkaline Phosphatase 85 U/L (39-117); Anion Gap 13 (12-20); Aspartate Amino Transferase 17 U/L (5-37); Bilirubin Total 0.4 mg/dL (0.0-1.0); Blood Urea Nitrogen 15 mg/dL (9-16); Calcium 9.7 mg/dL (8.4-10.2); Carbon Dioxide 29 mmol/L (22-29); Chloride 104 mmol/L (96-108); Cholesterol 143 mg/dL; Estimated Glomerular Filt Rate 53; Glucose Fasting 191 mg/dL (60-99); HDL Cholesterol 32 mg/dL; LDL Cholesterol Calculated 76 mg/dl; Potassium 4.8 mmol/L (3.3-5.1); Sodium 141 mmol/L (135-145); Total Protein 7.6 g/dL (6.5-8.0); Triglycerides 177 mg/dL
[2021-12-10 08:47] LABS: Vitamin B12 608 pg/mL (200-900)
[2021-12-10 09:31] LABS: Creatinine Urine 91.52 mg/dL; Microalbum/Creatinine Ratio Ur 13.1 ug/mg cr
[2021-12-14 11:37] LABS: Vitamin D 25-OH, D2 <4 ng/mL; Vitamin D 25-OH, D3 40 ng/mL; Vitamin D 25-OH, Total 40 ng/mL (30-100)
== END 2021-12-10 06:17 | disposition home or self-care (01) ==
LOC: HO.LAB 06:16
PROVIDERS: PCP Internal Medicine; Visit Provider Internal Medicine
DX: E78.5 Hyperlipidemia, unspecified (principal); E55.9 Vitamin D deficiency, unspecified; E53.8 Deficiency of other specified B group vitamins; E11.9 Type 2 diabetes mellitus without complications; E78.00 Pure hypercholesterolemia, unspecified; D64.9 Anemia, unspecified
CPT/HCPCS: 36415; 80053; 80061; 82043; 82306; 82607; 82746; 85025

== ENCOUNTER 2022-08-10 07:34 | Outpatient (REF) | payer OTHER, SELFPAY ==
[2022-08-10 09:14] LABS: Alanine Aminotransferase 30 U/L (0-40); Albumin Level 4.2 g/dL (3.5-5.0); Alkaline Phosphatase 98 U/L (39-117); Anion Gap 15 (12-20); Aspartate Amino Transferase 20 U/L (5-37); Bilirubin Total 0.3 mg/dL (0.0-1.0); Blood Urea Nitrogen 16 mg/dL (9-16); Calcium 9.6 mg/dL (8.4-10.2); Carbon Dioxide 28 mmol/L (22-29); Chloride 104 mmol/L (96-108); Cholesterol 131 mg/dL; Estimated Glomerular Filt Rate > 60; Glucose Fasting 114 mg/dL (60-99); HDL Cholesterol 29 mg/dL; LDL Cholesterol Calculated 77 mg/dl; Potassium 4.5 mmol/L (3.3-5.1); Sodium 142 mmol/L (135-145); Total Protein 7.3 g/dL (6.5-8.0); Triglycerides 129 mg/dL
[2022-08-10 09:24] LABS: Vitamin D 25-OH Total 43.2 ng/mL (>30)
[2022-08-10 10:33] LABS: Creatinine Urine 135.08 mg/dL; Microalbum/Creatinine Ratio Ur 39.2 ug/mg cr
== END 2022-08-10 07:35 | disposition home or self-care (01) ==
LOC: HO.LAB 07:34
PROVIDERS: PCP Internal Medicine; Visit Provider Internal Medicine
DX: E78.5 Hyperlipidemia, unspecified (principal); E55.9 Vitamin D deficiency, unspecified; E11.42 Type 2 diabetes mellitus with diabetic polyneuropathy
CPT/HCPCS: 36415; 80053; 80061; 82043; 82306

== ENCOUNTER 2022-11-22 15:09 | Outpatient (REF) | payer OTHER, SELFPAY ==
--- NOTE | ~2022-11-22 | US_ITS ---
EXAMINATION: US EXTRACRANIAL CAROTID DUPLEX, BILATERAL CLINICAL INFORMATION: Bilateral carotid stenosis. COMPARISON: 10/30/2021 TECHNIQUE: Real-time ultrasound and Doppler techniques (integrating B-mode 2-D vascular images, Doppler spectral analysis and color-flow Doppler imaging) were utilized to interrogate the extracranial carotid arteries, the vertebral arteries and proximal subclavian arteries bilaterally. The degree of stenosis is determined by criteria similar to NASCET. FINDINGS: Right Side: 1. There is calcified atherosclerotic plaque seen in the bifurcation/proximal ICA region. 2. The common carotid artery PSV proximally is 87 cm/s and distally 52 cm/s. 3. The internal carotid artery is again seen to be occluded. 4. The proximal external carotid artery PSV is 130 cm/s. 5. The vertebral artery shows antegrade flow. 6. The subclavian artery waveforms are normal. Left Side: 1. There is no atherosclerotic plaque seen in the bifurcation/proximal ICA region. 2. The common carotid artery PSV proximally is 134 cm/s and distally 78 cm/s. 3. The proximal internal carotid artery velocities are 63 cm/s systolic and 17 cm/s diastolic. 4. The proximal external carotid artery PSV is 102 cm/s. 5. The vertebral artery shows antegrade flow. 6. The subclavian artery waveforms are normal. US/US carotid duplex BI IMPRESSION: 1. RIGHT: Internal carotid artery remains occluded. 2. LEFT: Normal left internal carotid artery without atherosclerotic plaque or hemodynamically significant stenosis. 3. There is no change in the category severity of disease when compared to the previous study dated 11/19/2021.
== END 2022-11-22 15:10 | disposition home or self-care (01) ==
LOC: HO.US 15:09
PROVIDERS: PCP Internal Medicine; Visit Provider Surgery Vascular Surgery
DX: I65.23 Occlusion and stenosis of bilateral carotid arteries (principal)
CPT/HCPCS: 93880

== ENCOUNTER → 2022-11-27 09:59 | Outpatient (BNVA) | payer OTHER, SELFPAY | PROVIDERS: PCP Internal Medicine; Visit Provider Surgery Vascular Surgery | DX: I65.23 Occlusion and stenosis of bilateral carotid arteries (principal) | CPT/HCPCS: 99212 ==

== ENCOUNTER → 2022-12-06 12:45 | Outpatient (BNVA) | payer OTHER, SELFPAY | PROVIDERS: PCP Internal Medicine; Visit Provider Internal Medicine Endocrinology, Diabetes & Metabolism | DX: E11.42 Type 2 diabetes mellitus with diabetic polyneuropathy (principal); E11.21 Type 2 diabetes mellitus with diabetic nephropathy; E11.3599 Type 2 diabetes mellitus with proliferative diabetic retinopathy without macular edema, unspecified eye; I10 Essential (primary) hypertension; E78.5 Hyperlipidemia, unspecified; E53.8 Deficiency of other specified B group vitamins; E55.9 Vitamin D deficiency, unspecified; Z79.4 Long term (current) use of insulin | CPT/HCPCS: 82947; 83036; 99212 ==

== ENCOUNTER → 2023-03-12 10:30 | Outpatient (BNVA) | payer OTHER, SELFPAY | PROVIDERS: PCP Internal Medicine; Visit Provider Registered Nurse Diabetes Educator | DX: E11.42 Type 2 diabetes mellitus with diabetic polyneuropathy (principal) | CPT/HCPCS: 99211 ==

== ENCOUNTER → 2023-03-20 10:48 | Outpatient (BNVA) | payer OTHER, SELFPAY | PROVIDERS: PCP Internal Medicine; Visit Provider Dietitian, Registered | DX: E11.42 Type 2 diabetes mellitus with diabetic polyneuropathy (principal); Z71.3 Dietary counseling and surveillance | CPT/HCPCS: 97802 ==

== ENCOUNTER 2023-04-15 06:35 | Outpatient (REF) | payer OTHER, SELFPAY ==
[2023-04-15 07:54] LABS: Alanine Aminotransferase 18 U/L (0-40); Albumin Level 3.9 g/dL (3.5-5.0); Alkaline Phosphatase 92 U/L (39-117); Anion Gap 12 (12-20); Aspartate Amino Transferase 18 U/L (5-37); Bilirubin Total 0.4 mg/dL (0.0-1.0); Blood Urea Nitrogen 17 mg/dL (9-16); Calcium 9.4 mg/dL (8.4-10.2); Carbon Dioxide 26 mmol/L (22-29); Chloride 109 mmol/L (96-108); Cholesterol 111 mg/dL; Estimated Glomerular Filt Rate 59; Glucose Fasting 147 mg/dL (60-99); HDL Cholesterol 26 mg/dL; LDL Cholesterol Calculated 59 mg/dl; Potassium 4.1 mmol/L (3.3-5.1); Sodium 143 mmol/L (135-145); Total Protein 7.3 g/dL (6.5-8.0); Triglycerides 130 mg/dL
[2023-04-15 07:59] LABS: Creatinine Urine 71.01 mg/dL; Microalbum/Creatinine Ratio Ur 16.8 ug/mg cr
[2023-04-15 08:13] LABS: Vitamin D 25-OH Total 45.8 ng/mL (>30)
[2023-04-15 08:19] LABS: Folate 15.1 ng/mL (> or = 4.0); Vitamin B12 926 pg/mL (200-900)
== END 2023-04-15 06:36 | disposition home or self-care (01) ==
LOC: HO.LAB 06:35
PROVIDERS: PCP Internal Medicine; Visit Provider Internal Medicine
DX: E11.42 Type 2 diabetes mellitus with diabetic polyneuropathy (principal); E53.8 Deficiency of other specified B group vitamins; E55.9 Vitamin D deficiency, unspecified; E78.5 Hyperlipidemia, unspecified
CPT/HCPCS: 36415; 80053; 80061; 82043; 82306; 82607; 82746

== ENCOUNTER 2023-10-28 09:35 | Emergency (ER) | payer OTHER, SELFPAY ==
--- NOTE | ~2023-10-28 | XR_ITS ---
EXAMINATION: XR CHEST CLINICAL INFORMATION: Cough COMPARISON: None available. TECHNIQUE: 2 views of the chest were obtained. FINDINGS: The lungs are well-expanded and clear. The heart size and pulmonary vascularity is normal. No gross bony abnormality seen. XR/XR chest 2V IMPRESSION: Unremarkable chest exam.
[2023-10-28 09:50] VITALS: BP 122/62; PULSE 84; RESP 19; TEMP 36.6; O2SAT 95; BMI 28.1
[2023-10-28 11:08] LABS: Influenza A PCR NEGATIVE (Negative); Influenza B PCR NEGATIVE (Negative); Resp Syncy Virus RNA Qual PCR NEGATIVE (Negative); SARS COV2 PCR INHOUSE NEGATIVE (Negative)
[2023-10-28 12:34] VITALS: BP 126/63; PULSE 95; RESP 18; O2SAT 96
[2023-10-28] MEDS: Albuterol Sulfate 90 MCG 8 GM INHALER 4 PUFF INHALE (13:14)
[2023-10-28 13:17] VITALS: PULSE 98; RESP 18; O2SAT 98
--- NOTE | 2023-10-28 13:44 | ED.URI ---
HPI - URI/Sore Throat General Chief Complaint: Upper Respiratory Symptoms Stated Complaint: Cough Fever Time Seen by Provider: 10/28/23 12:15 Source: patient, family, RN notes reviewed and old records reviewed Mode of arrival: ambulatory History of Present Illness HPI Narrative: 68-year-old male with past medical history diabetes, HTN, HLD, presenting to ED complaining of dry cough, subjective fever, and diarrhea x 4 weeks. Was given coughing pills by PCP without relief. Denies diarrhea at present. Denies SOB, CP, pedal edema, recent travel. + sick contacts MD elicited complaint: fever and cough Related Data Previous Rx's Medication Instructions Recorded blood-glucose meter (FreeStyle #1 ea 02/12/21 [place] kit) alcohol swabs (Alcohol Prep Pads) 1 pad topical .8 times a day 30 02/28/21 days #200 ea alpha lipoic acid 600 mg capsule 600 mg PO DAILY 30 days #30 caps 02/28/21 flash glucose scanning reader #1 ea 04/18/21 (FreeStyle Jennifer 2 Royal) cholecalciferol (vitamin D3) 50 50 mcg PO DAILY 30 days #30 caps 11/15/21 mcg (2,000 unit) capsule cyanocobalamin (vitamin B-12) 100 100 mcg PO DAILY 30 days #30 tabs 11/15/21 mcg tablet sertraline 50 mg tablet 50 mg PO DAILY #90 tabs 01/08/22 lancets 28 gauge (FreeStyle #120 ea 02/25/22 Lancets) blood pressure test kit-medium #1 ea 09/03/22 pen needle, diabetic 32 gauge x #400 ea 11/06/22 1/ insulin aspart U-100 100 unit/mL See Rx Instructions subcut TID 90 11/18/22 (3 mL) subcutaneous pen (Novolog #64.8 mL FlexPen U-100 Insulin aspart) atorvastatin 40 mg tablet 40 mg PO BEDTIME 90 days #90 tabs 03/10/23 aspirin 81 mg tablet,delayed 81 mg PO DAILY 90 days #90 tabs 03/19/23 release (Adult Aspirin Regimen) enalapril maleate 5 mg tablet 5 mg PO DAILY #90 tabs 04/30/23 metformin 500 mg tablet 500 mg PO BID 90 days #180 tabs 05/05/23 tray table #1 ea 05/17/23 blood sugar diagnostic (FreeStyle #120 ea 06/05/23 Test strips) bath mat #1 ea 06/18/23 pregabalin 75 mg capsule 75 mg PO BEDTIME 30 days #30 caps 07/22/23 clopidogrel 75 mg tablet (Plavix) 75 mg PO DAILY #90 tabs 08/20/23 insulin glargine 100 unit/mL (3 63 unit (0.63 mL) subcut DAILY #15 09/03/23 mL) subcutaneous pen (Lantus mL Solostar U-100 Insulin) empagliflozin 25 mg tablet 25 mg PO DAILY 90 days #90 tabs 09/22/23 (Jardiance) pantoprazole 40 mg tablet,delayed 40 mg PO BID 90 days #180 tabs 09/22/23 release sitagliptin phosphate 100 mg 100 mg PO DAILY #90 tabs 09/22/23 tablet (Januvia) benzonatate 100 mg capsule 100 mg PO BID 5 days #10 caps 10/24/23 albuterol sulfate 90 mcg/actuation 2 puff inhalation Q4-6H PRN 10/28/23 aerosol inhaler shortness of breath or wheezing #6.7 grams amoxicillin 875 mg-potassium 1 tab PO BID 7 days #14 tabs 10/28/23 clavulanate 125 mg tablet azithromycin 250 mg tablet See Rx Instructions PO .COMPLEX #6 10/28/23 tabs benzonatate 100 mg capsule 100 mg PO TID PRN cough #14 caps 10/28/23 Allergies Allergy/AdvReac Type Severity Reaction Status Date / Time No Known Allergies Allergy Verified 10/28/23 09:50 Review of Systems Review of Systems: Constitutional: + Fever, No Chills ENT/Mouth: No Ear Pain, +nasal Congestion, No Sinus Pain, No Hoarseness, No sore throat, + Rhinorrhea, No Swallowing Difficulty Cardiovascular: No Chest Pain, No SOB Respiratory: +Cough, No Sputum, No Wheezing Gastrointestinal: No Nausea, No Vomiting, No Diarrhea, No Constipation, No Abdominal pain Skin: No Skin Lesions, No rash Neuro: No Weakness Yes all other systems are reviewed and are negative Constitutional: Constitutional: Reports as per [facility] Past Medical History Attestation statement: The following information was validated with the patient. 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 carotid artery occlusion B12 deficiency Hypertension Dyslipidemia Diabetic nephropathy associated with type 2 diabetes mellitus Proliferative diabetic retinopathy associated with type 2 diabetes mellitus Vitamin D deficiency Neuropathy Diabetes mellitus Surgical History No pertinent past surgical history Family History Family History Father Heart disease Mother HTN (hypertension) Social History Social History Household Members: Spouse Housing: Apartment Alcohol intake: former Patient Tobacco Use Status: Former Tobacco user Tobacco use type: Cigarette e-Cigarette/Vaping Use: Never Used Second Hand Smoke Exposure: No Advance Directives: No Advance Directives Information Provided: Yes service: No Current occupational status: disabled Cognitive needs: No Hearing needs: No Vision needs: Yes Physical Exam Vital Signs: Vital Signs: Last Vital Signs Temp 98 F 10/28/23 09:50 Pulse 98 10/28/23 13:17 Resp 18 10/28/23 13:17 BP 126/63 10/28/23 12:34 Pulse Ox 96 10/28/23 12:34 O2 Del Method Room Air 10/28/23 12:34 BMI result Body Mass Index 28.1 Const: General: cooperative, healthy appearing and no acute distress Orientation/consciousness: patient oriented x3 Limitations: no limitations HEENT: Head: Yes normal to inspection and Yes atraumatic Ears: hearing grossly normal bilaterally General nose exam: Normal external nose present Face and sinus: Yes normal facial exam Eyes: General: appearance normal, both eyes and all related structures EOM: EOMs intact bilaterally Neck: Neck: Yes normal visual inspection and Yes no meningeal signs Resp: Effort & Inspection: normal respiratory effort and no respiratory distress Auscultation: crackles bilateral at the base Cardio: Rate: regular rate Heart sounds: S1 normal heart sound present and S2 normal heart sound present GI: Inspection: Yes normal to inspection Palpation (GI): Soft to palpation, nontender, no guarding and not rigid Skin: Rashes: no rashes Wounds: no wounds Neuro: General: patient oriented x3, tone normal and no meningeal signs Cranial nerves: Yes CN's II-XII intact bilaterally Gait exam (Neuro): Normal gait present Extrem: General: Yes normal to inspection, Yes no pedal edema and Yes no calf tenderness Course Course Course Narrative: -COVID/flu/RSV negative. CXR unremarkable > will treat patient empirically for pneumonia with antibiotics and albuterol inhaler, recommended close PCP follow-up Results discussed with patient including worrisome signs and symptoms and strict return precautions, and when to return to the emergency department. They verbalized understanding and feel safe for discharge at this time. Medications Administered Discontinued Medications Generic Name Dose Route Start Last Admin Trade Name Freq PRN Reason Stop Dose Admin Albuterol Sulfate 4 puff 10/28/23 13:09 10/28/23 13:14 Albuterol Sulfate 90 Mcg 8 Gm Inhaler INHALE 10/28/23 13:10 4 puff ONCE ONE Administration Medical Decision Making Medical Decision Making [facility] Narrative: 68-year-old male with past medical history diabetes, HTN, HLD, presenting to ED complaining of dry cough, subjective fever, and diarrhea x 4 weeks. On exam vital signs stable, NAD, nontoxic appearing, bibasilar crackles appreciated, talking in complete sentences, no respiratory distress. Concern for viral illness vs pneumonia/bronchitis. Lower suspicion for ACS/PE or colitis/appendicitis with out abdominal tenderness Plan: Viral testing, CXR, ED bronch protocol Please refer to course for remaining clinical decision making, interpretation of labs/imaging results, and discussions with consultants and/or family members. Differential Diagnosis Differential Diagnoses: The differential diagnosis associated with the presentation includes As above Lab Data [facility] Lab Attestation statement: I reviewed the patient's lab results. Labs: Lab Results 10/28/23 Range/Units 10:12 Influenza Type A (PCR) NEGATIVE (Negative) Influenza Type B (PCR) NEGATIVE (Negative) RSV RNA Qual (PCR) NEGATIVE (Negative) SARS-CoV-2 RNA (RT-PCR) NEGATIVE (Negative) Independent Interpretation I performed an independent interpretation of an: Plain X-Ray Radiology Impression Discussion of test interpretation with radiology: I have reviewed the radiologist's reading. Independent Historian Clinical information obtained from an independent historian. History obtained from or confirmed by: Spouse External Record Review External record reviewed: Inpatient record, Office record, Outpatient record, Prior outpatient labs, Prior outpatient radiology, Primary care record and Outside ED record Tests considered The following testing was considered but not selected: As above Prescription Management I considered prescription management with: Pain Medication and Antibiotic Chronic Conditions Patient?s care impacted by: Diabetes and Hypertension Discharge Plan Discharge Clinical Impression: Acute viral syndrome Patient Disposition: Home, Self-Care Instructions: Viral Syndrome (ED) Additional Instructions: You have a virus, we are treating her for pneumonia with Augmentin and azithromycin, please take as prescribed Tessalon Perles are for cough. In addition use albuterol inhaler No antibiotics are indicated at this time Make sure you are staying hydrated. Drink plenty of fluids. Rest Alternate Tylenol and Motrin at home as needed for body aches and fever Follow-up with your doctor. If symptoms persist or worsen return to the emergency department Tiene un virus, la estamos tratando por neumon?a con Augmentin y azitromicina, t?allen seg?n lo recetado. Tessalon Perles son para la tos. Adem?s use inhalador de albuterol. No est?n indicados antibi?ticos en destinee momento. Aseg?rate de mantenerte hidratado. Beber mucho l?quido. Descansar Alterne Tylenol y Motrin en casa seg?n sea necesario para los asher corporales y la fiebre. Daniella un seguimiento con ureña m?dico. Si los s?ntomas persisten o empeoran, regrese al departamento de emergencias. Prescriptions: New azithromycin 250 mg tablet See Rx Instructions .ROUTE .COMPLEX Qty: 6 0RF Rx Instructions: take 500 mg today (day 1), then 250 mg for 4 days (days 2-5) benzonatate 100 mg capsule 100 mg PO TID PRN (Reason: cough) Qty: 14 0RF albuterol sulfate 90 mcg/actuation HFA aerosol inhaler 2 puff inhalation Q4-6H PRN (Reason: shortness of breath or wheezing) Qty: 6.7 0RF amoxicillin-pot clavulanate 875-125 mg tablet 1 tab PO BID 7 Days Qty: 14 0RF No Action (DME) blood-glucose meter [FreeStyle [place]] Kit See Rx Instructions .ROUTE .MEDSUPPLY Qty: 1 0RF Rx Instructions: As directed sertraline 50 mg tablet 50 mg PO DAILY Qty: 90 3RF (DME) lancets [FreeStyle Lancets] 28 gauge misc See Rx Instructions .ROUTE .MEDSUPPLY Qty: 120 11RF Rx Instructions: 4 times a day (DME) blood pressure test kit-medium Kit See Rx Instructions miscellaneous .MEDSUPPLY Qty: 1 0RF Rx Instructions: As directed (DME) pen needle, diabetic 32 gauge x 1/6 needle See Rx Instructions .ROUTE .MEDSUPPLY Qty: 400 2RF Rx Instructions: 4 times a day insulin aspart U-100 [Novolog FlexPen U-100 Insulin] 100 unit/mL (3 mL) insulin pen See Rx Instructions subcut TID 90 Days Qty: 64.8 1RF Rx Instructions: 18 units before breakfast and 24 units before lunch and dinner subcut 3 times a day; atorvastatin 40 mg tablet 40 mg PO BEDTIME 90 Days Qty: 90 3RF aspirin [Adult Aspirin Regimen] 81 mg tablet,delayed release (DR/EC) 81 mg PO DAILY 90 Days Qty: 90 3RF enalapril maleate 5 mg tablet 5 mg PO DAILY Qty: 90 3RF metformin 500 mg tablet 500 mg PO BID 90 Days Qty: 180 2RF (DME) tray table See Rx Instructions .Route .MEDSUPPLY Qty: 1 0RF Rx Instructions: As directed (DME) FreeStyle Test Strip See Rx Instructions .ROUTE .MEDSUPPLY Qty: 120 11RF Rx Instructions: 4 times a day (DME) bath mat See Rx Instructions .Route .MEDSUPPLY Qty: 1 0RF Rx Instructions: As directed pregabalin 75 mg capsule 75 mg PO BEDTIME 30 Days Qty: 30 0RF clopidogrel [Plavix] 75 mg tablet 75 mg PO DAILY Qty: 90 0RF insulin glargine [Lantus Solostar U-100 Insulin] 100 unit/mL (3 mL) insulin pen 63 unit subcut DAILY Qty: 15 6RF Januvia 100 mg tablet 100 mg PO DAILY Qty: 90 3RF pantoprazole 40 mg tablet,delayed release (DR/EC) 40 mg PO BID 90 Days Qty: 180 1RF Jardiance 25 mg tablet 25 mg PO DAILY 90 Days Qty: 90 1RF benzonatate 100 mg capsule 100 mg PO BID 5 Days Qty: 10 0RF cholecalciferol (vitamin D3) 50 mcg (2,000 unit) capsule 50 mcg PO DAILY 30 Days Qty: 30 6RF cyanocobalamin (vitamin B-12) 100 mcg tablet 100 mcg PO DAILY 30 Days Qty: 30 6RF (DME) FreeStyle Jennifer 2 Royal Misc See Rx Instructions .ROUTE .MEDSUPPLY Qty: 1 0RF Rx Instructions: As directed alcohol swabs [Alcohol Prep Pads] Pads, Medicated 1 pad topical .8 times a day 30 Days Qty: 200 6RF alpha lipoic acid 600 mg capsule 600 mg PO DAILY 30 Days Qty: 30 6RF Referrals: Tami King MD [Primary Care Provider] - 3 days Interventions: ED Discharge Assessment Last Done: 10/28/23 14:24 Discharge Date/Time: 10/28/23 14:25 Print Language: Kenyan
== END 2023-10-28 14:25 | disposition home or self-care (01) ==
PROVIDERS: Emergency Provider Emergency Medicine Emergency Medical Services; PCP Internal Medicine
DX: B34.9 Viral infection, unspecified (principal); R05.9 Cough, unspecified; R50.9 Fever, unspecified; Z20.828 Contact with and (suspected) exposure to other viral communicable diseases; Z11.52 Encounter for screening for COVID-19; Z87.891 Personal history of nicotine dependence; Z79.899 Other long term (current) drug therapy
CPT/HCPCS: 0241U; 71046; 94640; 94664; 99284

== ENCOUNTER 2023-11-03 13:50 | Outpatient (AMB) | payer OTHER, SELFPAY ==
[2023-11-03 13:54] VITALS: BP 112/70; PULSE 115; O2SAT 98; BMI 28.7
--- NOTE | 2023-11-03 13:54 | A.OFFPC_ITS ---
Vital Signs 11/03/23 13:54 Height 5 ft 8 in Weight 189 lb BMI 28.7 BP 112/70 Blood Pressure Location Lt brachial Position Sitting Pulse 115 H Pulse Source Pulse Oximeter Pulse Oximetry (%) 98 Oxygen Delivery Method Room Air Intake Visit Reasons: [facility] Persistent cough 10/28/23 Intake Note: Patient is here to follow-up after a visit the emergency department at [facility] on 10/28/23 for persistent cough since September and not getting better. [employer] Required: No Accompanied by: Spouse Allergies No Known Allergies Allergy (Verified 11/03/23 14:08) Medication List - Last Reconciled 11/03/23 by Gabriel Steinberg PA-C albuterol sulfate 90 mcg/actuation 2 puffs inhalation Q4-6H PRN alcohol swabs (Alcohol Prep Pads) 1 pad topical .8 times a day 30 days alpha lipoic acid 600 mg PO DAILY 30 days aspirin (Adult Aspirin Regimen) 81 mg PO DAILY 90 days atorvastatin 40 mg PO BEDTIME 90 days [bath mat As directed] blood pressure test kit-medium As directed blood sugar diagnostic (FreeStyle Test strips) 4 times a day blood-glucose meter (PalmStyle [place] kit) As directed cholecalciferol (vitamin D3) 50 mcg PO DAILY 30 days clopidogrel (Plavix) 75 mg PO DAILY cyanocobalamin (vitamin B-12) 100 mcg PO DAILY 30 days empagliflozin (Jardiance) 25 mg PO DAILY 90 days enalapril maleate 5 mg PO DAILY flash glucose scanning reader ([employer] Jennifer 2 [place]) As directed insulin aspart U-100 (Novolog FlexPen U-100 Insulin aspart) 18 units before breakfast and 24 units before lunch and dinner subcut 3 times a day; 90 days insulin glargine (Lantus Solostar U-100 Insulin) 63 units (0.63 mL) subcut DAILY lancets (FreeStyle Lancets) 4 times a day metformin 500 mg PO BID 90 days pantoprazole 40 mg PO BID 90 days pen needle, diabetic 4 times a day pregabalin 75 mg PO BEDTIME 30 days sertraline 50 mg PO DAILY sitagliptin phosphate (Januvia) 100 mg PO DAILY [tray table As directed] Tobacco use date assessed: 11/03/23 Fall risk assessment: No Falls in past year Last assessed Fall Risk: 11/03/23 Dental Screening Dental Screen Date: 11/03/23 Did you have a dental visit in the last 12 months?: No Did you have a dental problem in the last 6 months where you did not have access to dental care?: No Was dental information given to patient?: No (No teeth) [facility] Persistent cough 10/28/23 HPI Details Patient is a 68 male here today for an ER follow-up visit. He has had a cough over the last 6 weeks to has not gotten any better. Has been on antibiotic and xnlk-afc-jjolbiv cough medication without much relief. Chest x- ray were done in ER was normal. Patient reports he is somewhat better after antibiotics though does have an occasional cough worse at night. 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 Right carotid artery occlusion B12 deficiency Hypertension Dyslipidemia Diabetic nephropathy associated with type 2 diabetes mellitus Proliferative diabetic retinopathy associated with type 2 diabetes mellitus Vitamin D deficiency Neuropathy Diabetes mellitus Surgical History No pertinent past surgical history Family History Father Heart disease Mother HTN (hypertension) Social History Household Members: Spouse Housing: Apartment Alcohol intake: former Patient Tobacco Use Status: Former Tobacco user Tobacco use type: Cigarette e-Cigarette/Vaping Use: Never Used Second Hand Smoke Exposure: No service: No Current occupational status: disabled Cognitive needs: No Hearing needs: No Vision needs: Yes Questionnaire PHQ-9 Over the last 2 weeks, how often have you been bothered by any of the following problems? 1. Little interest or pleasure in doing things: not at all 2. Feeling down, depressed, or hopeless: not at all 3. Trouble falling or staying asleep, or sleeping too much: not at all 4. Feeling tired or having little energy: not at all 5. Poor appetite or overeating: not at all 6. Feeling bad about yourself - or that you are a failure or have let yourself or your family down: not at all 7. Trouble concentrating on things, such as reading the newspaper or watching television: not at all 8. Moving or speaking so slowly that other people could have noticed. Or the opposite - being so fidgety or restless that you have been moving around a lot more than usual: not at all 9. Thoughts that you would be better off or of hurting yourself in some w ay: not at all Total score: 0 Depression Screening Interpretation: Negative Depression Screening Done: Yes 74349 - PHQ-9 Billing: Yes Source: Developed by Drs. Brad Espinal, Julia Guzman, Torsten Lindsey and colleagues, with an educational greg from [employer]. Thrive Questionnaire Date Thrive assessed: 11/03/23 I am a: Patient What is your living situation today?: I have a steady place to live Within the past 12 months, did the food you bought not last and you didn't have the money to get more?: Never true Within the past 12 months, did you worry whether your food would run out before you got money to buy more?: Never true Do you have trouble paying for medicines?: No Do you have trouble getting transportation to medical appointments?: No Do you have trouble paying your heating and electricity bill?: No Do you have trouble taking care of your child, family member or friend?: No Do you have trouble with day-to-day activities such as bathing, preparing meals, shopping, managing finances, etc.?: No Are you currently unemployed and looking for a job?: No Are you interested in more education?: No Please select the resources that you would like help with: None AUDIT C Alcohol Use Questionnaire (AUDIT-C) 1. How often do you have a drink containing alcohol?: Never 3. How often do you have six or more drinks on one occasion?: Never Total Score: 0 LESA-7 AMB Questionnaire LESA-7 Date LESA - 7 assessed: 11/03/23 Feeling nervous, anxious, or on edge: 0 = Not at all Not being able to stop or control worryin = Not at all Worrying too much about different things: 0 = Not at all Trouble relaxin = Not at all Being so restless that it is hard to sit still: 0 = Not at all Becoming easily annoyed or irritable: 0 = Not at all Feeling afraid as if something awful might happen: 0 = Not at all Total LESA-7 score (0-4 normal; 5-9 mild; 10-14 moderate; 15-21 severe): 0 Source: Developed by Drs. Brad Espinal, Julia Guzman, Torsten Lindsey and colleagues, with an educational greg from [employer]. LESA-7 Assessment Billing LESA-7 Assessment Tool: LESA-7 Assessment 00030 Review of Systems Const Denies headache(s) Eyes Denies loss of vision ENT Denies vertigo, Denies dizziness, Denies headache(s) and Denies sore throat Card Denies chest pain, Denies leg edema and Denies lightheadedness Resp Reports cough, Denies hemoptysis and Denies wheezing GI Denies abdominal pain, Denies melena, Denies constipation, Denies diarrhea and Denies vomiting Denies dysuria, Denies urinary frequency and Denies urinary urgency Musc Denies arthralgias, Denies joint swelling, Denies numbness and Denies tingling Neuro Denies Abnormal speech present, Denies behavioral changes, Denies vertigo, Denies dizziness, Denies headache(s), Denies loss of vision, Denies memory loss, Denies numbness and Denies tingling Psych Denies anxiety, Denies behavioral changes, Denies depression, Denies memory loss and Denies panic attacks Coleman/Lymph Denies easy bleeding and Denies easy bruising Aller/Immun Denies wheezing Physical exam (Primary Care) Vital Signs: Last Vital Signs Pulse 115 H 11/03/23 13:54 BP 112/70 11/03/23 13:54 Pulse Ox 98 11/03/23 13:54 Oxygen Delivery Method Room Air 11/03/23 13:54 BMI result Body Mass Index 28.7 Tobacco/Smoking Status: Tobacco use Status Tobacco use date assessed 11/03/23 11/03/23 14:03 Patient Tobacco Use Status Former Tobacco user 11/03/23 13:56 Tobacco use type Cigarette 11/03/23 13:56 e-Cigarette/Vaping Use Never Used 11/03/23 13:56 PHQ-9: PHQ-9 Score PHQ-9: Total score 0 11/03/23 14:13 Depression Screening Interpretation: Negative Thrive Assessment: Date of Thrive Assessment Date Thrive assessed 11/03/23 11/03/23 14:03 Const General: healthy appearing, no acute distress, alert and awake Nutritional Appearance: well nourished Orientation/consciousness: oriented to person, oriented to place and oriented to time HENMT Ears: TM's normal bilaterally General nose exam: Normal nasal mucous membranes and turbinates present Eyes Conjunctivae: conjunctivae normal Sclerae: sclerae normal Pupils: Equal, round and reactive pupils present Neck Neck: Yes no lymphadenopathy and Yes no JVD Thyroid: Thyroid normal Carotids: no bruits Resp Effort & Inspection: normal respiratory effort and not tachypneic Auscultation: no crackles, no rales, no rhonchi and no wheezes Cardio Rate: regular rate Rhythm: regular rhythm Heart sounds: no murmurs and normal S1 and S2 GI Palpation (GI): Soft to palpation, nontender, no hepatomegaly and no splenomegaly Auscultation: normal bowel sounds Skin General skin exam: no rashes or lesions noted and dry skin Neuro General: oriented to person, oriented to place and oriented to time Cranial nerves: Yes Equal, round and reactive pupils present Speech: No Abnormal speech present Gait exam (Neuro): Normal gait present Motor exam (neuro): no tremor noted Extrem Right upper extremity: full ROM Left upper extremity: full ROM Right lower extremity: full ROM; no edema Left lower extremity: full ROM; no edema Psych Mental Status: mental status grossly normal Speech and movement: Normal speech and movement present Affect: normal affect Attitude: cooperative Thought process: Normal thought process present Results AMB Hemoglobin A1c AMB Hemoglobin A1c 10.6 % Last Edit by EDWARD Fabian on 11/03/23 14:04 Results Reviewed Results Reviewed: Laboratory Last Values Hgb A1c (Clinic) 10.6 % (4.0-6.0) H 11/03/23 13:53 Assessment and Plan Assessment & Plan (1) Persistent cough: Code(s): R05.3 - Chronic cough Plan: Patient's signs symptoms most consistent postviral cough syndrome. Has already been treated with antibiotics been has made some improvement. Does not appear to be in respiratory distress. Will supply patient with medicated cough syrup to use at night to reduce cough. Most recent chest x-ray without evidence of pneumonia. Otherwise patient does not seem to be in any respiratory distress. Orders: Orders AMB Hemoglobin A1c 11/03/23 E11.42 - Type 2 diabetes mellitus with diabetic polyneuropathy Medications: New codeine-guaifenesin 10-100 mg/5 mL 5 mL PO Q6H 5 days PRN 120 mL 0RF cough R05.3 - Chronic cough Discontinued pregabalin Discontinued Reason: Doctor's Order 75 mg PO BEDTIME 30 days 30 caps 0RF E53.8 - Deficiency of other specified B group vitamins Coding Level of Care Code Est Pt Level 3 (59533) Diagnoses Persistent cough R05.3 Additional Codes LESA-7 Assessment Billing - LESA-7 Assessment Tool: LESA-7 Assessment 65349 ([id number])
== END 2023-11-03 15:52 | disposition home or self-care (01) ==
PROVIDERS: PCP Internal Medicine; Visit Provider Physician Assistant
DX: E11.42 Type 2 diabetes mellitus with diabetic polyneuropathy (principal)
CPT/HCPCS: 83036; 99213

== ENCOUNTER 2023-11-17 10:02 | Outpatient (REF) | payer OTHER, SELFPAY ==
--- NOTE | ~2023-11-17 | US_ITS ---
EXAMINATION: US EXTRACRANIAL CAROTID DUPLEX, BILATERAL CLINICAL INFORMATION: Occlusion of carotid arteries COMPARISON: Carotid ultrasound 11/22/2022 TECHNIQUE: Real-time ultrasound and Doppler techniques (integrating B-mode 2-D vascular images, Doppler spectral analysis and color-flow Doppler imaging) were utilized to interrogate the extracranial carotid arteries, the vertebral arteries and proximal subclavian arteries bilaterally. The degree of stenosis is determined by criteria similar to NASCET. FINDINGS: Right Side: 1. There is mild atherosclerotic plaque seen in the bifurcation/proximal ICA region. 2. The common carotid artery PSV proximally is 80 cm/s and distally 47 cm/s. 3. The proximal internal carotid artery is chronically occluded. 4. The proximal external carotid artery PSV is 91 cm/s. 5. The vertebral artery shows antegrade flow. 6. The subclavian artery waveforms are normal. Left Side: 1. There is mild atherosclerotic plaque seen in the bifurcation/proximal ICA region. 2. The common carotid artery PSV proximally is 104 cm/s and distally 70 cm/s. 3. The proximal internal carotid artery velocities are 63 cm/s systolic and 24 cm/s diastolic. 4. The proximal external carotid artery PSV is 85 cm/s. 5. The vertebral artery shows antegrade flow. 6. The subclavian artery waveforms are normal. US/US carotid duplex BI IMPRESSION: 1. RIGHT: Known occlusion of the right internal carotid artery. 2. LEFT: Normal left internal carotid artery without atherosclerotic plaque or hemodynamically significant stenosis. 3. There is no change in the category severity of disease when compared to the previous study dated 11/22/2022.
== END 2023-11-17 10:03 | disposition home or self-care (01) ==
LOC: HO.US 10:02
PROVIDERS: Visit Provider Surgery Vascular Surgery
DX: I65.23 Occlusion and stenosis of bilateral carotid arteries (principal)
CPT/HCPCS: 93880

== ENCOUNTER 2023-12-01 14:39 | Outpatient (AMB) | payer OTHER, SELFPAY ==
--- NOTE | 2023-12-01 14:45 | MHC.PC.OV ---
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 Required: No Accompanied by: Spouse Allergies No Known Allergies Allergy (Verified 12/01/23 15:06) Medication List - Last Reconciled 12/01/23 by Tami Almodovar MD albuterol sulfate 90 mcg/actuation 2 puffs inhalation Q4-6H PRN alcohol swabs (Alcohol Prep Pads) 1 pad topical .8 times a day 30 days alpha lipoic acid 600 mg PO DAILY 30 days aspirin (Adult Aspirin Regimen) 81 mg PO DAILY 90 days atorvastatin 40 mg PO BEDTIME 90 days [bath mat As directed] blood pressure test kit-medium As directed blood sugar diagnostic (FreeStyle Test strips) 4 times a day blood-glucose meter ([employer] [place] kit) As directed cholecalciferol (vitamin D3) 50 mcg PO DAILY 30 days clopidogrel (Plavix) 75 mg PO DAILY cyanocobalamin (vitamin B-12) 100 mcg PO DAILY 30 days empagliflozin (Jardiance) 25 mg PO DAILY 90 days enalapril maleate 5 mg PO DAILY flash glucose scanning reader ([employer] Jennifer 2 [place]) As directed insulin aspart U-100 (Novolog FlexPen U-100 Insulin aspart) 18 units before breakfast and 24 units before lunch and dinner subcut 3 times a day; 90 days insulin glargine (Lantus Solostar U-100 Insulin) 63 units (0.63 mL) subcut DAILY lancets (FreeStyle Lancets) 4 times a day metformin 500 mg PO BID 90 days pantoprazole 40 mg PO BID 90 days pen needle, diabetic 4 times a day pregabalin 75 mg PO BEDTIME 30 days sertraline 50 mg PO DAILY sitagliptin phosphate (Januvia) 100 mg PO DAILY [tray table As directed] Tobacco use date assessed: 11/03/23 Fall risk assessment: No Falls in past year Last assessed Fall Risk: 12/01/23 Dental Screening Dental Screen Date: 12/01/23 Did you have a dental visit in the last 12 months?: No Did you have a dental problem in the last 6 months where you did not have access to dental care?: No Was dental information given to patient?: Patient has dentist HPI HPI Comments History of Present Illness Details This is a 68-year-old male with mild major depression, hypertension, diabetes mellitus type 2 and dyslipidemia that comes today accompanied by for follow-up on his conditions. Depression stable with medications. Blood pressure well controlled. A1c elevated and I will increase insulin. LDL within goal. No chest pain or shortness of breath. Complains of vitiligo which I reassure him that is benign. 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 Right carotid artery occlusion B12 deficiency Hypertension Dyslipidemia Diabetic nephropathy associated with type 2 diabetes mellitus Proliferative diabetic retinopathy associated with type 2 diabetes mellitus Vitamin D deficiency Neuropathy Diabetes mellitus Surgical History No pertinent past surgical history Family History Father Heart disease Mother HTN (hypertension) Social History Household Members: Spouse Housing: Apartment Alcohol intake: former Patient Tobacco Use Status: Former Tobacco user Tobacco use type: Cigarette e-Cigarette/Vaping Use: Never Used Second Hand Smoke Exposure: No service: No Current occupational status: disabled Cognitive needs: No Hearing needs: No Vision needs: Yes Questionnaire PHQ-9 Over the last 2 weeks, how often have you been bothered by any of the following problems? 1. Little interest or pleasure in doing things: not at all 2. Feeling down, depressed, or hopeless: not at all 3. Trouble falling or staying asleep, or sleeping too much: not at all 4. Feeling tired or having little energy: not at all 5. Poor appetite or overeating: not at all 6. Feeling bad about yourself - or that you are a failure or have let yourself or your family down: not at all 7. Trouble concentrating on things, such as reading the newspaper or watching television: not at all 8. Moving or speaking so slowly that other people could have noticed. Or the opposite - being so fidgety or restless that you have been moving around a lot more than usual: not at all 9. Thoughts that you would be better off or of hurting yourself in some way: not at all Total score: 0 Depression Screening Interpretation: Negative Depression Screening Done: Yes 54275 - PHQ-9 Billing: Yes Source: Developed by Drs. Brad Espinal, Julia Guzman, Torsten Lindsey and colleagues, with an educational greg from [employer]. Thrive Questionnaire Date Thrive assessed: 12/01/23 I am a: Patient What is your living situation today?: I have a steady place to live Within the past 12 months, did the food you bought not last and you didn't have the money to get more?: Never true Within the past 12 months, did you worry whether your food would run out before you got money to buy more?: Never true Do you have trouble paying for medicines?: No Do you have trouble getting transportation to medical appointments?: No Do you have trouble paying your heating and electricity bill?: No Do you have trouble taking care of your child, family member or friend?: No Do you have trouble with day-to-day activities such as bathing, preparing meals, shopping, managing finances, etc.?: No Are you currently unemployed and looking for a job?: No Are you interested in more education?: No Please select the resources that you would like help with: None Currently or been in a relationship where the following occur: no concerns reported THRIVE Score: 0 AUDIT C Alcohol Use Questionnaire (AUDIT-C) 1. How often do you have a drink containing alcohol?: Never Total Score: 0 LESA-7 AMB Questionnaire LESA-7 Date LESA - 7 assessed: 12/01/23 Feeling nervous, anxious, or on edge: 0 = Not at all Not being able to stop or control worryin = Not at all Worrying too much about different things: 0 = Not at all Trouble relaxin = Not at all Being so restless that it is hard to sit still: 0 = Not at all Becoming easily annoyed or irritable: 0 = Not at all Feeling afraid as if something awful might happen: 0 = Not at all Total LESA-7 score (0-4 normal; 5-9 mild; 10-14 moderate; 15-21 severe): 0 Source: Developed by Julia Tijerina Thomas, Torsten Lindsey and colleagues, with an educational greg from [employer]. LESA-7 Assessment Billing LESA-7 Assessment Tool: LESA-7 Assessment 16115 Review of Systems Const All systems reviewed & are unremarkable except as noted in HPI and below Eyes Reports no additional complaints, Denies change in vision and Denies other visual disturbances Card Denies chest pain at rest, Denies chest pain with activity, Denies edema, Denies irregular heart rhythm, Denies claudication, Denies dyspnea, Denies dyspnea on exertion, Denies orthopnea, Denies paroxysmal nocturnal dyspnea and Denies slow heart rate Resp Denies cough, Denies dyspnea and Denies dyspnea on exertion GI Denies abdominal pain, Denies change in bowel habits, Denies excessive flatus, Denies nausea and Denies vomiting Denies urinary hesitancy, Denies urinary incontinence and Denies urinary urgency Musc Denies abnormal gait, Denies atrophy, Denies deformity and Denies limited range of motion Skin/Breast Denies bleeding lesions, Denies changing lesions and Denies rash Neuro Denies abnormal gait, Denies behavioral changes and Denies lack of coordination Psych Denies behavioral changes Physical exam (Primary Care) Vital Signs: Last Vital Signs BP 120/60 12/01/23 14:46 BMI result Body Mass Index 28.4 Tobacco/Smoking Status: Tobacco use Status Tobacco use date assessed 11/03/23 12/01/23 14:57 Patient Tobacco Use Status Former Tobacco user 12/01/23 14:57 Tobacco use type Cigarette 12/01/23 14:57 e-Cigarette/Vaping Use Never Used 12/01/23 14:57 PHQ-9: PHQ-9 Score PHQ-9: Total score 0 12/01/23 15:09 Depression Screening Interpretation: Negative Thrive Assessment: Date of Thrive Assessment Date Thrive assessed 12/01/23 12/01/23 14:57 Currently or been in a relationship where the following occur: no concerns reported Eyes General: appearance normal, both eyes and all related structures Eyelids: Yes eyelids normal Conjunctivae: conjunctivae normal Neck Neck: Yes normal visual inspection and Yes supple Resp Effort & Inspection: normal respiratory effort Auscultation: clear to auscultation bilaterally Cardio Jugular venous distension: no JVD Rate: regular rate Rhythm: regular rhythm Heart sounds: S1 normal heart sound present and S2 normal heart sound present Extrem General: Yes full ROM Assessment and Plan Assessment & Plan (1) Mild recurrent major depression: Code(s): F33.0 - Major depressive disorder, recurrent, mild Plan: Continue sertraline. (2) Diabetes mellitus: Code(s): E11.9 - Type 2 diabetes mellitus without complications Qualifiers: Diabetes mellitus type: type 2 Diabetes mellitus assisted insulin use: with intermediate accountant use Diabetes mellitus complication status: with kidney complications Diabetes mellitus complication detail: with microalbuminuria Qualified Code(s): E11.29 - Type 2 diabetes mellitus with other diabetic kidney complication; R80.9 - Proteinuria, unspecified; Z79.4 - [facility] (current) use of insulin Plan: Continue metformin. Increase insulin. Start Jardiance. A1c goal is equal or less than 7%. Continue Januvia. (3) Hypertension: Code(s): I10 - Essential (primary) hypertension Qualifiers: Hypertension type: essential hypertension Qualified Code(s): I10 - Essential (primary) hypertension Plan: Continue enalapril. Blood pressure goal is equal or less than 130/80. (4) Dyslipidemia: Code(s): E78.5 - Hyperlipidemia, unspecified Plan: Continue statins. LDL goal is less than 70. Orders: Orders Microalbumin, Random (w Creat) Today E11.9 - Type 2 diabetes mellitus without complications Vitamin D 25-OH Total Today E55.9 - Vitamin D deficiency, unspecified Lipid Panel Today E78.5 - Hyperlipidemia, unspecified Vitamin B12 and Folate Today E53.8 - Deficiency of other specified B group vitamins Comprehensive [place]. Panel Fast Today E11.42 - Type 2 diabetes mellitus with diabetic polyneuropathy Medications: New metformin 1,000 mg PO BID 90 days 180 tabs 1RF Changed From insulin glargine (Lantus Solostar U-100 Insulin) 63 units (0.63 mL) subcut DAILY 15 mL 6RF E11.9 - Type 2 diabetes mellitus without complications To insulin glargine (Lantus Solostar U-100 Insulin) 65 units (0.65 mL) subcut DAILY 90 days 58.5 mL 3RF E11.9 - Type 2 diabetes mellitus without complications Discontinued metformin Discontinued Reason: Patient Completed Course 500 mg PO BID 90 days 180 tabs 2RF E11.29 - Type 2 diabetes mellitus with other diabetic kidney complication, R80.9 - Proteinuria, unspecified, Z79.4 - [facility] (current) use of insulin Coding Level of Care Code Est Pt Level 4 (02380) Diagnoses Mild recurrent major depression F33.0 Type 2 diabetes mellitus with microalbuminuria, with long-term current use of insulin E11.29; R80.9; Z79.4 Diabetes mellitus type: type 2 Diabetes mellitus assisted insulin use: with intermediate accountant use Diabetes mellitus complication status: with kidney complications Diabetes mellitus complication detail: with microalbuminuria Essential hypertension I10 Hypertension type: essential hypertension Dyslipidemia E78.5 Additional Codes LESA-7 Assessment Billing - LESA-7 Assessment Tool: LESA-7 Assessment 74907 ([id number]) Time Spent (min) 25
[2023-12-01 14:46] VITALS: BP 120/60; BMI 28.4
== END 2023-12-01 15:22 | disposition home or self-care (01) ==
PROVIDERS: PCP Internal Medicine; Visit Provider Internal Medicine
DX: E11.29 Type 2 diabetes mellitus with other diabetic kidney complication (principal); F33.0 Major depressive disorder, recurrent, mild; Z79.4 Long term (current) use of insulin; R80.9 Proteinuria, unspecified; I10 Essential (primary) hypertension; E78.5 Hyperlipidemia, unspecified
CPT/HCPCS: 99214

== ENCOUNTER 2023-12-20 07:14 | Outpatient (REF) | payer OTHER, SELFPAY ==
[2023-12-20 08:26] LABS: Creatinine Urine 85.79 mg/dL; Microalbum/Creatinine Ratio Ur 64.1 ug/mg cr (<30)
[2023-12-20 08:30] LABS: Alanine Aminotransferase 23 U/L (0-40); Albumin Level 4.1 g/dL (3.5-5.0); Alkaline Phosphatase 104 U/L (39-117); Anion Gap 12 (12-20); Aspartate Amino Transferase 17 U/L (5-37); Bilirubin Total 0.3 mg/dL (0.0-1.0); Blood Urea Nitrogen 16 mg/dL (9-16); Calcium 9.2 mg/dL (8.4-10.2); Carbon Dioxide 28 mmol/L (22-29); Chloride 108 mmol/L (96-108); Cholesterol 143 mg/dL (<200); Estimated Glomerular Filt Rate > 60; Glucose Fasting 151 mg/dL (60-99); HDL Cholesterol 28 mg/dL (>40); LDL Cholesterol Calculated 78 mg/dL (<100); Potassium 4.1 mmol/L (3.3-5.1); Sodium 144 mmol/L (135-145); Total Protein 7.6 g/dL (6.5-8.0); Triglycerides 185 mg/dL (<150)
[2023-12-20 08:48] LABS: Vitamin D 25-OH Total 36.4 ng/mL (>30)
[2023-12-20 08:54] LABS: Vitamin B12 963 pg/mL (200-900)
== END 2023-12-20 07:15 | disposition home or self-care (01) ==
LOC: HO.LAB 07:14
PROVIDERS: PCP Internal Medicine; Visit Provider Internal Medicine
DX: E11.42 Type 2 diabetes mellitus with diabetic polyneuropathy (principal); E53.8 Deficiency of other specified B group vitamins; E55.9 Vitamin D deficiency, unspecified; E78.5 Hyperlipidemia, unspecified
CPT/HCPCS: 36415; 80053; 80061; 82043; 82306; 82570; 82607; 82746

== ENCOUNTER 2024-01-08 09:39 | Outpatient (AMB) | payer OTHER, SELFPAY ==
--- NOTE | 2024-01-08 09:39 | MHC.OFFVIS ---
Intake Vital Signs 01/08/24 09:40 01/08/24 09:47 Height 5 ft 8 in Weight 187 lb BMI 28.4 BP 110/70 110/65 Blood Pressure Location Lt brachial Rt brachial Position Sitting Sitting Intake Visit Reasons: 1 yr follow up carotid US 11/17/2023 Intake Note: Patient presents for one year follow up s/p carotid US done on 11/17/23. No blurry vision or dizziness. Allergies No Known Allergies Allergy (Verified 01/08/24 09:48) HPI 1 yr follow up carotid US 11/17/2023 HPI Details Very pleasant 68-year-old gentleman presents for follow-up regarding carotid disease. He has a known left carotid occlusion. He reports that he has stopped smoking nearly 8 years ago. He is a diabetic and remains poorly controlled. His last hemoglobin A1c was 10.6. He now presents for surveillance follow-up regarding his carotids. In terms of his carotids he remains asymptomatic. 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 Right carotid artery occlusion B12 deficiency Hypertension Dyslipidemia Diabetic nephropathy associated with type 2 diabetes mellitus Proliferative diabetic retinopathy associated with type 2 diabetes mellitus Vitamin D deficiency Neuropathy Diabetes mellitus Surgical History No pertinent past surgical history Family History Father Heart disease Mother HTN (hypertension) Social History Household Members: Spouse Housing: Apartment Alcohol intake: former Patient Tobacco Use Status: Former Tobacco user Tobacco use type: Cigarette e-Cigarette/Vaping Use: Never Used Second Hand Smoke Exposure: No service: No Current occupational status: disabled Cognitive needs: No Hearing needs: No Vision needs: Yes Review of Systems Const All systems reviewed & are unremarkable except as noted in HPI and below Reports no additional complaints ENT Reports Normal hearing present Card Denies chest pain, Denies chest pain at rest, Denies chest pain with activity and Denies pedal edema Resp Denies cough GI Denies abdominal pain Musc Denies abnormal gait, Denies muscle cramps and Denies radiating pain into limb Skin/Breast Denies skin ulcer and Denies wounds Neuro Reports Normal hearing present and Denies abnormal gait Psych Reports no additional complaints Physical Exam Vital Signs: Last Vital Signs BP 110/65 01/08/24 09:47 BMI result Body Mass Index 28.4 Const General: cooperative, healthy appearing and comfortable Orientation/consciousness: oriented to person, oriented to place and oriented to time HEENT Head: Yes normal to inspection Neck Neck: Yes normal visual inspection Carotids: no bruits Chest Chest palpation & inspection: normal inspection of the chest Resp Effort & Inspection: normal respiratory effort and able to speak in complete sentences Auscultation: clear to auscultation bilaterally, no crackles, no rales, no rhonchi and no wheezes Cardio Rate: regular rate Rhythm: regular rhythm Heart sounds: S1 normal heart sound present and S2 normal heart sound present Bruits: no carotid bruits Peripheral pulses: Peripheral pulses 2+ throughout GI Inspection: Yes normal to inspection Skin Wounds: no wounds Hair: normal Neuro General: oriented to person, oriented to place and oriented to time Cranial nerves: Yes CN's II-XII intact bilaterally and Yes Normal hearing present Cognition (Neuro): normal cognition Motor exam (neuro): 5/5 motor strength present throughout Extrem Other: venous exam: No significant superficial varicosities or spider telangiectasias, minimal edema General: No clubbing, No cyanosis and No edema Psych Appearance: grossly normal Mental Status: mental status grossly normal Speech and movement: Normal speech and movement present Results Reviewed Results Reviewed: Carotid testing dated 11/17/2023 demonstrates right side known carotid occlusion. Left side 0-49 with a peak systolic of only 63 Assessment & Plan Assessment & Plan (1) Bilateral carotid artery stenosis: Code(s): I65.23 - Occlusion and stenosis of bilateral carotid arteries Plan: In short patient has asymptomatic carotid disease. We have reviewed signs and symptoms of a stroke. We also discussed risk factor modification inclusive a healthy diet low in cholesterol. The patient will follow up with us with surveillance ultrasound of the carotids 1 year. Should there be any changes or signs or symptoms of a stroke we will be happy to see them back sooner. Thank you for allowing us to participate in this patient's care. If there are any questions or concerns please do not hesitate to contact us. Orders: Orders US carotid duplex BI 1 Year I65.23 - Occlusion and stenosis of bilateral carotid arteries Coding Level of Care Code Est Pt Level 4 (53458) Diagnoses Bilateral carotid artery stenosis I65.23
[2024-01-08 09:40] VITALS: BP 110/70; BMI 28.4
[2024-01-08 09:47] VITALS: BP 110/65
== END 2024-01-08 10:11 | disposition home or self-care (01) ==
PROVIDERS: PCP Internal Medicine; Visit Provider Surgery Vascular Surgery
DX: I65.23 Occlusion and stenosis of bilateral carotid arteries (principal)
CPT/HCPCS: 99213

== ENCOUNTER → 2024-01-08 09:39 | Outpatient (BNVA) | payer OTHER, SELFPAY | PROVIDERS: PCP Internal Medicine; Visit Provider Surgery Vascular Surgery | DX: I65.23 Occlusion and stenosis of bilateral carotid arteries (principal); Z87.891 Personal history of nicotine dependence | CPT/HCPCS: 99212 ==

== ENCOUNTER 2024-01-28 07:50 | Outpatient (AMB) | payer OTHER, SELFPAY ==
[2024-01-28 07:52] VITALS: BP 124/58; PULSE 92; BMI 29.5
--- NOTE | 2024-01-28 07:52 | MHC.OFFVIS ---
Intake Vital Signs 01/28/24 07:52 Height 5 ft 8 in Weight 194 lb 0.108 oz BMI 29.5 BP 124/58 L Blood Pressure Location Lt brachial Position Sitting Pulse 92 Pulse Source Pulse Oximeter Intake Visit Reasons: [id number] Intake Note: Patient presents today to follow up on D2MT. Last Diabetic Eye exam: 11/2023 Last Podiatry Visit:Doesn't have one Random Glucose: 240 mg/dl HgA1c: 10.3% Rigging Slinger Required: Yes Rigging Slinger Language: Metal Grader Name: Senait Information Interpreted: non-clinical & clinical Accompanied by: Daughter Allergies No Known Allergies Allergy (Verified 01/28/24 07:58) HPI HPI Comments History of Present Illness Details Patient is a 68-year-old male with DM type 2 diagnosed 20 years ago who presents for continued management of diabetes. 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 Diabetes medications: Lantus 60 units at night and Novolog 18 units before meals, he is adding 2 units for blood sugars more than 200 mg/DL, Metformin 500mg bid. Jardiance 25 mg daily. Januvia 100 mg. Had cellulitis with Freestyle jennifer pro. Reports diarrhea with Trulicity. Reports diarrhea with higher doses of metformin. Blood glucose monitoring: Glucometer download. Hyp shows she is checking point cares sporadically . There are only 2 glucose is in the glucometer, Hyperglycemia: denies polyuria, denies polydypsia, denies nocturia occ hypoglycemia Activity: 1/2 hour of walking a day. Rides bicycle when weather permits. Last ophthalmology evaluation: last visit has appt in 03/2024 ou proliferative diabetic retinopathy. Completed VEGF in right eye. 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 Right carotid artery occlusion B12 deficiency Hypertension Dyslipidemia Diabetic nephropathy associated with type 2 diabetes mellitus Proliferative diabetic retinopathy associated with type 2 diabetes mellitus Vitamin D deficiency Neuropathy Diabetes mellitus Surgical History No pertinent past surgical history Family History Father Heart disease Mother HTN (hypertension) Social History Household Members: Spouse Housing: Apartment Alcohol intake: former Patient Tobacco Use Status: Former Tobacco user Tobacco use type: Cigarette e-Cigarette/Vaping Use: Never Used Second Hand Smoke Exposure: No service: No Current occupational status: disabled Cognitive needs: No Hearing needs: No Vision needs: Yes Physical Exam Vital Signs: Last Vital Signs Pulse 92 01/28/24 07:52 BP 124/58 L 01/28/24 07:52 BMI result Body Mass Index 29.5 Absence of Cushingoid features. Absence of acromegalic features. Neck exam reveals nl size thyroid about 15 gms. No thyroid nodules palpable. No carotid bruits present. Lungs CTA. Heart S1 S2, Reg R/R. No M/R/ G. Skin exam reveals absence of vitiligo or acanthosis nigricans. Abdominal exam reveals Soft NT/ND with NA BS. No organomegaly present. Neck Other: . Extrem Other: Visual exam of foot performed. No ulcerations or open lesions. No onchomycosis, no callouses.Pulses 2 + distally Sensation intact to monofilament exam. Vibratory sensation sensed is decreased with 128 Hz tuning fork Results AMB Hemoglobin A1c AMB Hemoglobin A1c 10.3 % Last Edit by OLGA LIDIA Keller on 01/28/24 08:12 Results Reviewed Results Reviewed: Laboratory Last Values Glucose (Clinic) 240 mg/dL (60-115) H 01/28/24 08:00 Assessment & Plan Assessment & Plan (1) Type 2 diabetes mellitus with diabetic polyneuropathy: Code(s): E11.42 - Type 2 diabetes mellitus with diabetic polyneuropathy Plan: This 68-year-old white male with a history of type 2 diabetes being treated with metformin, Jardiance, Januvia and basal-bolus insulin with poor glycemic control and known microvascular macrovascular complications namely neuropathy, nephropathy, retinopathy as well as macrovascular complications of PVD and CVA. Plan is to talk to the patient by checking his point cares more frequently before and after meals. I will also discussed potential use of Dexcom or re-initiation of Jennifer but the patient is reluctant to do so and wants to discuss with educator. . I also went over the correlation of poor glycemic control to development and progression of complication. We could not make any changes to the insulin regimen today considering lack of data. We could consider initiating alternative G LP 1 like Ozempic once more data glucose measurements are obtained. I did explain to the patient and his daughter through die sinking machine operator that he has not willing to wear sensor or check his point cares, there is no reason to follow-up here endocrinology. His daughter states he will do so in the next several months. Was scheduled for follow-up visit with Endocrine next several months Orders: Orders AMB Hemoglobin A1c Today E11.42 - Type 2 diabetes mellitus with diabetic polyneuropathy, Z13.9 - Encounter for screening, unspecified Coding Level of Care Code Est Pt Level 4 (19105) Diagnoses Type 2 diabetes mellitus with diabetic polyneuropathy E11.42
[2024-01-28 08:04] LABS: Glucose, Whole Blood 240 mg/dL (60-115)
== END 2024-01-28 08:20 | disposition home or self-care (01) ==
PROVIDERS: PCP Internal Medicine; Visit Provider Internal Medicine Endocrinology, Diabetes & Metabolism
DX: Z13.9 Encounter for screening, unspecified (principal); E11.42 Type 2 diabetes mellitus with diabetic polyneuropathy
CPT/HCPCS: 99214

== ENCOUNTER → 2024-01-28 07:50 | Outpatient (BNVA) | payer OTHER, SELFPAY | PROVIDERS: PCP Internal Medicine; Visit Provider Internal Medicine Endocrinology, Diabetes & Metabolism | DX: E11.42 Type 2 diabetes mellitus with diabetic polyneuropathy (principal) | CPT/HCPCS: 82947; 83036; 99212 ==

== ENCOUNTER 2024-02-17 07:51 | Outpatient (AMB) | payer OTHER, SELFPAY ==
--- NOTE | 2024-02-17 08:14 | A.OFFVIS_ITS ---
Intake Intake Visit Reasons: T2DM Corporate Legal Secretary Required: Yes Corporate Legal Secretary Language: Body Painter Name: [facility] [place] Information Interpreted: non-clinical & clinical Accompanied by: Daughter Allergies No Known Allergies Allergy (Verified 01/28/24 07:58) HPI Comprehensive Diabetes Asmnt Most Recent Diabetes Results: Hemoglobin A1c 9.3 % 03/28/20 Microalb/Creat Ratio 64.1 ug/mg cr (<30) H 12/20/23 Cholesterol 143 mg/dL (<200) 12/20/23 HDL Cholesterol 28 mg/dL (>40) L 12/20/23 Triglycerides 185 mg/dL (<150) H 12/20/23 Creatinine 1.17 mg/dL (0.5-1.4) 12/20/23 Blood Urea Nitrogen 16 mg/dL (9-16) 12/20/23 Sodium 144 mmol/L (135-145) 12/20/23 Potassium 4.1 mmol/L (3.3-5.1) 12/20/23 Chloride 108 mmol/L (96-108) 12/20/23 Carbon Dioxide 28 mmol/L (22-29) 12/20/23 Calcium 9.2 mg/dL (8.4-10.2) 12/20/23 AST 17 U/L (5-37) 12/20/23 ALT 23 U/L (0-40) 12/20/23 Total Protein 7.6 g/dL (6.5-8.0) 12/20/23 Albumin 4.1 g/dL (3.5-5.0) 12/20/23 [facility] Medical History Physical exam 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 Right carotid artery occlusion B12 deficiency Hypertension Dyslipidemia Diabetic nephropathy associated with type 2 diabetes mellitus Proliferative diabetic retinopathy associated with type 2 diabetes mellitus Vitamin D deficiency Neuropathy Diabetes mellitus Surgical History No pertinent past surgical history Family History Father Heart disease Mother HTN (hypertension) Social History Household Members: Spouse Housing: Apartment Alcohol intake: former Patient Tobacco Use Status: Former Tobacco user Tobacco use type: Cigarette e-Cigarette/Vaping Use: Never Used Second Hand Smoke Exposure: No service: No Current occupational status: disabled Cognitive needs: No Hearing needs: No Vision needs: Yes Assessment & Plan Assessment & Plan (1) Type 2 diabetes mellitus with diabetic polyneuropathy: Code(s): E11.42 - Type 2 diabetes mellitus with diabetic polyneuropathy Plan: Patient at visit to set up an insert Dexcom G7 Instructed patient sensors water proof you can shower, or swim do not submerge sensor in water for over 30 minutes Is sensor falls off cannot put back in you need to replace sensor, customer service number given to patient for sensor replacement Sensor placed on the back of Left arm Patient left visit with sensor in warmup Reviewed how to interpret trend arrows Reminded patient that to check finger sticks if symptoms do not match sensor reading. Discussed lag time between finger stick and sensor data.? Instructed patient she should always keep blood glucometer for backup testing if needed Reviewed delay of CGM from fingersticks Reminded pt that if symptoms do not match sensor still needs to check fingersticks. Patient Instructions: Instrucciones para el paciente: CGM proporciona informaci?n sobre el control de la glucosa en marsha a lo adalberto del d?a, incluidas la hiperglucemia y la hipoglucemia. Contin?e controlando la glucosa en marsha seg?n las instrucciones. Siga las pautas de nutrici?n proporcionadas. Informe cualquier molestia de inmediato al proveedor de atenci?n m?dica. Mantente cait hidratado. Puede ba?arse, ducharse, nadar y hacer ejercicio mientras usa el sensor de glucosa. No sumerja el sensor de glucosa en agua lonnie m?s de 30 minutos. Retire el sensor para laura resonancia magn?le o laura tomograf?a computarizada. Evite la m?quina de ki X en los aeropuertos: retire el sensor o solicite la varita Coding Level of Care Code Est Pt Level 1 (76168) Diagnoses Type 2 diabetes mellitus with diabetic polyneuropathy E11.42
== END 2024-02-17 08:19 | disposition home or self-care (01) ==
PROVIDERS: PCP Internal Medicine; Visit Provider Registered Nurse Diabetes Educator
DX: E11.42 Type 2 diabetes mellitus with diabetic polyneuropathy (principal)

== ENCOUNTER → 2024-02-17 07:51 | Outpatient (BNVA) | payer OTHER, SELFPAY | PROVIDERS: PCP Internal Medicine; Visit Provider Registered Nurse Diabetes Educator | DX: E11.42 Type 2 diabetes mellitus with diabetic polyneuropathy (principal) | CPT/HCPCS: 99211 ==

== ENCOUNTER 2024-02-24 13:37 | Outpatient (AMB) | payer OTHER, SELFPAY ==
[2024-02-24 13:40] VITALS: BP 110/72; BMI 29.3
--- NOTE | 2024-02-24 13:40 | A.OFFPC_ITS ---
Vital Signs 02/24/24 13:40 Height 5 ft 8 in Weight 193 lb BMI 29.3 BP 110/72 Blood Pressure Location Lt brachial Position Sitting Intake Visit Reasons: leg pain Intake Note: Patient here c/o right leg pain News Videotape Editor Required: No Accompanied by: Spouse Allergies No Known Allergies Allergy (Verified 02/24/24 13:54) Medication List - Last Reconciled 02/24/24 by Tami Almodovar MD albuterol sulfate 90 mcg/actuation 2 puffs inhalation Q4-6H PRN alcohol swabs (Alcohol Prep Pads) 1 pad topical .8 times a day 30 days alpha lipoic acid 600 mg PO DAILY 30 days aspirin (Adult Aspirin Regimen) 81 mg PO DAILY 90 days atorvastatin 40 mg PO BEDTIME 90 days [bath mat As directed] blood pressure test kit-medium As directed blood sugar diagnostic (FreeStyle Test strips) 4 times a day blood-glucose meter ([employer] [place] kit) As directed cholecalciferol (vitamin D3) 50 mcg PO DAILY 30 days clopidogrel (Plavix) 75 mg PO DAILY cyanocobalamin (vitamin B-12) 100 mcg PO DAILY 30 days empagliflozin (Jardiance) 25 mg PO DAILY 90 days enalapril maleate 5 mg PO DAILY flash glucose scanning reader (Feusd Jennifer 2 [place]) As directed insulin aspart U-100 (Novolog FlexPen U-100 Insulin aspart) 18 units before breakfast and 24 units before lunch and dinner subcut 3 times a day; 90 days insulin glargine (Lantus Solostar U-100 Insulin) 65 units (0.65 mL) subcut DAILY 90 days lancets (FreeStyle Lancets) 4 times a day metformin 1,000 mg PO BID 90 days pantoprazole 40 mg PO BID 90 days pen needle, diabetic 4 times a day pregabalin 75 mg PO BEDTIME 30 days sertraline 50 mg PO DAILY sitagliptin phosphate (Januvia) 100 mg PO DAILY [tray table As directed] Tobacco use date assessed: 11/03/23 Fall risk assessment: No Falls in past year Last assessed Fall Risk: 02/24/24 Dental Screening Dental Screen Date: 12/01/23 HPI HPI Comments History of Present Illness Details This is a 68-year-old male with diabetes mellitus type 2 on long-term current use of insulin complicated by polyneuropathy, hypertension, dyslipidemia and mild recurrent major depression that comes accompanied by Lesvia complaining of bilateral leg pain that started few weeks ago. He can not walk over 1 block due to pain. Has positive Homans test. We will order ultrasound today to rule out DVT. Last A1c was elevated and he said at home blood glucose are over 200. I will increase insulin. Blood pressure stable. Last LDL was close to goal. Depression stable with sertraline. 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 Right carotid artery occlusion B12 deficiency Hypertension Dyslipidemia Diabetic nephropathy associated with type 2 diabetes mellitus Proliferative diabetic retinopathy associated with type 2 diabetes mellitus Vitamin D deficiency Neuropathy Diabetes mellitus Surgical History No pertinent past surgical history Family History Father Heart disease Mother HTN (hypertension) Social History Household Members: Spouse Housing: Apartment Alcohol intake: former Patient Tobacco Use Status: Former Tobacco user Tobacco use type: Cigarette e-Cigarette/Vaping Use: Never Used Second Hand Smoke Exposure: No service: No Current occupational status: disabled Cognitive needs: No Hearing needs: No Vision needs: Yes Questionnaire Thrive Questionnaire Date Thrive assessed: 12/01/23 LESA-7 AMB Questionnaire LESA-7 Date LESA - 7 assessed: 12/01/23 Source: Developed by Drs. Brad Espinal, Julia Guzman, Torsten Lindsey and colleagues, with an educational greg from [employer]. Review of Systems Const All systems reviewed & are unremarkable except as noted in HPI and below Eyes Reports no additional complaints, Denies change in vision and Denies other visual disturbances Card Denies chest pain at rest, Denies chest pain with activity, Denies edema, Denies irregular heart rhythm, Denies claudication, Denies dyspnea, Denies dyspnea on exertion, Denies orthopnea, Denies paroxysmal nocturnal dyspnea and Denies slow heart rate Resp Denies cough, Denies dyspnea and Denies dyspnea on exertion Physical exam (Primary Care) Vital Signs: Last Vital Signs BP 110/72 02/24/24 13:40 BMI result Body Mass Index 29.3 Tobacco/Smoking Status: Tobacco use Status Tobacco use date assessed 11/03/23 02/24/24 13:44 Patient Tobacco Use Status Former Tobacco user 02/24/24 13:44 Tobacco use type Cigarette 02/24/24 13:44 e-Cigarette/Vaping Use Never Used 02/24/24 13:44 Thrive Assessment: Date of Thrive Assessment Date Thrive assessed 12/01/23 02/24/24 13:44 Resp Effort & Inspection: normal respiratory effort Auscultation: clear to auscultation bilaterally Cardio Jugular venous distension: no JVD Rate: regular rate Rhythm: regular rhythm Heart sounds: S1 normal heart sound present and S2 normal heart sound present Extrem Other: Positive Homans test bilateral Assessment and Plan Assessment & Plan (1) Right leg pain: Code(s): M79.604 - Pain in right leg Plan: Ultrasound venous duplex ordered to rule out DVT. (2) Left leg pain: Code(s): M79.605 - Pain in left leg Plan: Ultrasound venous duplex order to rule out DVT. (3) Type 2 diabetes mellitus with diabetic polyneuropathy: Code(s): E11.42 - Type 2 diabetes mellitus with diabetic polyneuropathy Qualifiers: Diabetes mellitus fci insulin use: with fci use Qualified Code(s): E11.42 - Type 2 diabetes mellitus with diabetic polyneuropathy; Z79.4 - FPC (current) use of insulin Plan: Increase short-acting and long-acting insulin. For polyneuropathy continue with Lyrica. A1c goal is equal or less than 7%. (4) Mild recurrent major depression: Code(s): F33.0 - Major depressive disorder, recurrent, mild Plan: Continue sertraline. (5) Hypertension: Code(s): I10 - Essential (primary) hypertension Qualifiers: Hypertension type: essential hypertension Qualified Code(s): I10 - Essential (primary) hypertension Plan: Continue enalapril. Blood pressure goal is equal or less than 130/80. (6) Dyslipidemia: Code(s): E78.5 - Hyperlipidemia, unspecified Plan: Continue statins. LDL goal is less than 70. Orders: Orders Microalbumin, Random (w Creat) Today E11.9 - Type 2 diabetes mellitus without complications US venous duplex LE BI Today M79.604 - Pain in right leg, M79.605 - Pain in left leg Lipid Panel Today E78.5 - Hyperlipidemia, unspecified Comprehensive [place]. Panel Fast Today E11.42 - Type 2 diabetes mellitus with diabetic polyneuropathy Referrals Podiatry Referral E11.29 - Type 2 diabetes mellitus with other diabetic kidney complication, R80.9 - Proteinuria, unspecified, Z79.4 - FPC (current) use of insulin Medications: Changed From insulin aspart U-100 (Novolog FlexPen U-100 Insulin aspart) 18 units before breakfast and 24 units before lunch and dinner subcut 3 times a day; 90 days 64.8 mL 1RF E11.29 - Type 2 diabetes mellitus with other diabetic kidney complication, R80.9 - Proteinuria, unspecified, Z79.4 - FPC (current) use of insulin To insulin aspart U-100 (Novolog FlexPen U-100 Insulin aspart) 20 units (0.2 mL) subcut TID 90 days 54 mL 1RF E11.29 - Type 2 diabetes mellitus with other diabetic kidney complication, R80.9 - Proteinuria, unspecified, Z79.4 - terminal worker (current) use of insulin From insulin glargine (Lantus Solostar U-100 Insulin) 65 units (0.65 mL) subcut DAILY 90 days 58.5 mL 3RF E11.9 - Type 2 diabetes mellitus without complications To insulin glargine (Lantus Solostar U-100 Insulin) 70 units (0.7 mL) subcut DAILY 90 days 63 mL 3RF E11.9 - Type 2 diabetes mellitus without complications Coding Level of Care Code Est Pt Level 4 (17003) Diagnoses Right leg pain M79.604 Left leg pain M79.605 Type 2 diabetes mellitus with diabetic polyneuropathy, with long-term current use of insulin E11.42; Z79.4 Diabetes mellitus long term care administrator insulin use: with long term care administrator use Mild recurrent major depression F33.0 Essential hypertension I10 Hypertension type: essential hypertension Dyslipidemia E78.5 Time Spent (min) 24
== END 2024-02-24 14:07 | disposition home or self-care (01) ==
PROVIDERS: PCP Internal Medicine; Visit Provider Internal Medicine
DX: E11.42 Type 2 diabetes mellitus with diabetic polyneuropathy (principal); Z79.4 Long term (current) use of insulin; F33.0 Major depressive disorder, recurrent, mild; M79.604 Pain in right leg; M79.605 Pain in left leg; I10 Essential (primary) hypertension; E78.5 Hyperlipidemia, unspecified
CPT/HCPCS: 99214

== ENCOUNTER 2024-02-24 14:27 | Outpatient (REF) | payer OTHER, SELFPAY ==
--- NOTE | ~2024-02-24 | US_ITS ---
EXAMINATION: US VENOUS ULTRASOUND WITH DOPPLER LOWER EXTREMITY, BILATERAL CLINICAL INFORMATION: Left leg pain COMPARISON: None available. TECHNIQUE: Ultrasound of the deep veins is performed from the hip to the calf with compression sonography and color and pulse Doppler assessment. Spectral analysis with color-flow imaging is performed. FINDINGS: RIGHT: There is normal venous compression and respiratory variation and augmented flow. The visualized common femoral vein, superficial femoral vein, profunda femoral vein, popliteal vein, and the trifurcation region shows no evidence of deep venous thrombosis. There is no significant popliteal fossa cyst. LEFT: There is normal venous compression and respiratory variation and augmented flow. The visualized common femoral vein, superficial femoral vein, profunda femoral vein, popliteal vein, and the trifurcation region shows no evidence of deep venous thrombosis. There is no significant popliteal fossa cyst. If the patient's symptoms persist, followup ultrasound in 5 days 7 days might be of value to exclude proximal propagation from a non-visualized calf vein. US/US venous duplex LE BI IMPRESSION: No DVT demonstrated in either lower extremity.
== END 2024-02-24 14:28 | disposition home or self-care (01) ==
LOC: HO.US 14:27
PROVIDERS: Visit Provider Internal Medicine
DX: M79.604 Pain in right leg (principal); M79.605 Pain in left leg
CPT/HCPCS: 93970

== ENCOUNTER 2024-02-25 14:13 | Outpatient (AMB) | payer OTHER, SELFPAY ==
--- NOTE | 2024-02-25 15:04 | A.OFFVIS_ITS ---
Intake Intake Visit Reasons: T2DM Dish Room Worker Required: Yes Dish Room Worker Language: Production Broacher Name: [facility] [place] Advance Seal Delivery System Maintainer: Advance Seal Delivery System Maintainer offered & declined Accompanied by: Spouse Allergies No Known Allergies Allergy (Verified 02/24/24 13:54) HPI Comprehensive Diabetes Asmnt Most Recent Diabetes Results: Hemoglobin A1c 9.3 % 03/28/20 Microalb/Creat Ratio 64.1 ug/mg cr (<30) H 12/20/23 Cholesterol 143 mg/dL (<200) 12/20/23 HDL Cholesterol 28 mg/dL (>40) L 12/20/23 Triglycerides 185 mg/dL (<150) H 12/20/23 Creatinine 1.17 mg/dL (0.5-1.4) 12/20/23 Blood Urea Nitrogen 16 mg/dL (9-16) 12/20/23 Sodium 144 mmol/L (135-145) 12/20/23 Potassium 4.1 mmol/L (3.3-5.1) 12/20/23 Chloride 108 mmol/L (96-108) 12/20/23 Carbon Dioxide 28 mmol/L (22-29) 12/20/23 Calcium 9.2 mg/dL (8.4-10.2) 12/20/23 AST 17 U/L (5-37) 12/20/23 ALT 23 U/L (0-40) 12/20/23 Total Protein 7.6 g/dL (6.5-8.0) 12/20/23 Albumin 4.1 g/dL (3.5-5.0) 12/20/23 [facility] Medical History Physical exam 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 Right carotid artery occlusion B12 deficiency Hypertension Dyslipidemia Diabetic nephropathy associated with type 2 diabetes mellitus Proliferative diabetic retinopathy associated with type 2 diabetes mellitus Vitamin D deficiency Neuropathy Diabetes mellitus Surgical History No pertinent past surgical history Family History Father Heart disease Mother HTN (hypertension) Social History Household Members: Spouse Housing: Apartment Alcohol intake: former Patient Tobacco Use Status: Former Tobacco user Tobacco use type: Cigarette e-Cigarette/Vaping Use: Never Used Second Hand Smoke Exposure: No service: No Current occupational status: disabled Cognitive needs: No Hearing needs: No Vision needs: Yes Assessment & Plan Assessment & Plan (1) Type 2 diabetes mellitus with diabetic polyneuropathy: Code(s): E11.42 - Type 2 diabetes mellitus with diabetic polyneuropathy Qualifiers: Diabetes mellitus oysterman insulin use: with oysterman use Qualified Code(s): E11.42 - Type 2 diabetes mellitus with diabetic polyneuropathy; Z79.4 - assisted (current) use of insulin Plan: Personal Continuous Glucose Monitor: Patients CGM information reviewed Reviewed patient's sensor data: Hypoglycemia: ? 0% Hyperglycemia:? 84% Time in Range:? 16% Average glucose for the last 2 weeks? 250 mg/dL Patient is having overnight hyperglycemia, reports taking Lantus 70 units daily NovoLog 20 units before meals Patient reports he snacks on candy and other high carb snacks, after his goes to bed. Discussed with patient switching some of the snacks too low carb snack at this time patient is not ready to make changes to his eating habits Reviewed how to interpret trend arrows Reminded patient that to check finger sticks if symptoms do not match sensor reading. Discussed lag time between finger stick and sensor data.? Patient able to insert sensor independently at home without issue.? Patient Instructions: Iniciar Toujeo 70 unidades y detener Lantus 70 unidades Seguimiento con enferme ra de educaci?n sobre diabetes en un mes. Coding Level of Care Code Est Pt Level 1 (31731) Diagnoses Type 2 diabetes mellitus with diabetic polyneuropathy, with long-term current use of insulin E11.42; Z79.4 Diabetes mellitus oysterman insulin use: with oysterman use
== END 2024-02-25 15:07 | disposition home or self-care (01) ==
PROVIDERS: PCP Internal Medicine; Visit Provider Registered Nurse Diabetes Educator
DX: E11.42 Type 2 diabetes mellitus with diabetic polyneuropathy (principal); Z79.4 Long term (current) use of insulin

== ENCOUNTER → 2024-02-25 14:13 | Outpatient (BNVA) | payer OTHER, SELFPAY | PROVIDERS: PCP Internal Medicine; Visit Provider Registered Nurse Diabetes Educator | DX: E11.42 Type 2 diabetes mellitus with diabetic polyneuropathy (principal); Z79.4 Long term (current) use of insulin | CPT/HCPCS: 99211 ==

== ENCOUNTER 2024-03-25 10:20 | Outpatient (AMB) | payer OTHER, SELFPAY ==
--- NOTE | 2024-03-25 10:48 | MHC.AMDMED ---
Intake Intake Visit Reasons: T2DM/CONFIRMED Staff Physical Therapy Assistant Required: Yes Staff Physical Therapy Assistant Language: Metal Rivet Machine Operator Name: Sen[facility] [place] Information Interpreted: non-clinical & clinical Accompanied by: Spouse Allergies No Known Allergies Allergy (Verified 02/24/24 13:54) HPI Comprehensive Diabetes Asmnt Most Recent Diabetes Results: Hemoglobin A1c 9.3 % 03/28/20 Microalb/Creat Ratio 64.1 ug/mg cr (<30) H 12/20/23 Cholesterol 143 mg/dL (<200) 12/20/23 HDL Cholesterol 28 mg/dL (>40) L 12/20/23 Triglycerides 185 mg/dL (<150) H 12/20/23 Creatinine 1.17 mg/dL (0.5-1.4) 12/20/23 Blood Urea Nitrogen 16 mg/dL (9-16) 12/20/23 Sodium 144 mmol/L (135-145) 12/20/23 Potassium 4.1 mmol/L (3.3-5.1) 12/20/23 Chloride 108 mmol/L (96-108) 12/20/23 Carbon Dioxide 28 mmol/L (22-29) 12/20/23 Calcium 9.2 mg/dL (8.4-10.2) 12/20/23 AST 17 U/L (5-37) 12/20/23 ALT 23 U/L (0-40) 12/20/23 Total Protein 7.6 g/dL (6.5-8.0) 12/20/23 Albumin 4.1 g/dL (3.5-5.0) 12/20/23 [facility] Medical History Physical exam 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 Right carotid artery occlusion B12 deficiency Hypertension Dyslipidemia Diabetic nephropathy associated with type 2 diabetes mellitus Proliferative diabetic retinopathy associated with type 2 diabetes mellitus Vitamin D deficiency Neuropathy Diabetes mellitus Surgical History No pertinent past surgical history Family History Father Heart disease Mother HTN (hypertension) Social History Household Members: Spouse Housing: Apartment Alcohol intake: former Patient Tobacco Use Status: Former Tobacco user Tobacco use type: Cigarette e-Cigarette/Vaping Use: Never Used Second Hand Smoke Exposure: No service: No Current occupational status: disabled Cognitive needs: No Hearing needs: No Vision needs: Yes Assessment & Plan Assessment & Plan (1) Type 2 diabetes mellitus with diabetic polyneuropathy: Code(s): E11.42 - Type 2 diabetes mellitus with diabetic polyneuropathy Qualifiers: Diabetes mellitus assistant terminal manager insulin use: with assistant terminal manager use Qualified Code(s): E11.42 - Type 2 diabetes mellitus with diabetic polyneuropathy; Z79.4 - detention (current) use of insulin Plan: Personal Continuous Glucose Monitor: Patients CGM information reviewed Reviewed patient's sensor data: Hypoglycemia: ? 0% Hyperglycemia:?76% Time in Range:?24% Average glucose for the last 2 weeks? 240 mg/dL Patient reports he is picked up Toujeo but he has only been taking 35 units daily, he is prescribed 70 units daily. Explained to patient we will not make any changes to insulin at this visit because he has not been taking Toujeo as prescribed. Encourage patient to make small changes, to his meal plan, reduce the amount of candy he has been consuming. 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 Explained to patient he should be proud of himself for being able to quit smoking, and encouraged him to use the same motivation to reduce the amount carbohydrates in his meals and snacks. Patient did report that he will try. Patient will start using Toujeo 70 units, in follow-up with Diabetes Education nurse in 1 month Reviewed how to interpret trend arrows Reminded patient that to check finger sticks if symptoms do not match sensor reading. Discussed lag time between finger stick and sensor data.? Patient able to insert sensor independently at home without issue.? Portions of this note were created using voice recognition software, please excuse any words or phrases that may have been misinterpreted. Coding Level of Care Code Est Pt Level 1 (42704) Diagnoses Type 2 diabetes mellitus with diabetic polyneuropathy, with long-term current use of insulin E11.42; Z79.4 Diabetes mellitus group home insulin use: with assistant terminal manager use
== END 2024-03-25 10:52 | disposition home or self-care (01) ==
PROVIDERS: PCP Internal Medicine; Visit Provider Registered Nurse Diabetes Educator
DX: E11.42 Type 2 diabetes mellitus with diabetic polyneuropathy (principal); Z79.4 Long term (current) use of insulin

== ENCOUNTER → 2024-03-25 10:20 | Outpatient (BNVA) | payer OTHER, SELFPAY | PROVIDERS: PCP Internal Medicine; Visit Provider Registered Nurse Diabetes Educator | DX: E11.42 Type 2 diabetes mellitus with diabetic polyneuropathy (principal); E11.21 Type 2 diabetes mellitus with diabetic nephropathy; E11.3599 Type 2 diabetes mellitus with proliferative diabetic retinopathy without macular edema, unspecified eye; Z79.4 Long term (current) use of insulin | CPT/HCPCS: 99211 ==

== ENCOUNTER 2024-04-27 10:15 | Outpatient (AMB) | payer OTHER, SELFPAY ==
--- NOTE | 2024-04-27 10:49 | MHC.AMDMED ---
Intake Intake Visit Reasons: 30 min-confirmed Allergies No Known Allergies Allergy (Verified 02/24/24 13:54) HPI Comprehensive Diabetes Asmnt Most Recent Diabetes Results: Hemoglobin A1c 9.3 % 03/28/20 Microalb/Creat Ratio 64.1 ug/mg cr (<30) H 12/20/23 Cholesterol 143 mg/dL (<200) 12/20/23 HDL Cholesterol 28 mg/dL (>40) L 12/20/23 Triglycerides 185 mg/dL (<150) H 12/20/23 Creatinine 1.17 mg/dL (0.5-1.4) 12/20/23 Blood Urea Nitrogen 16 mg/dL (9-16) 12/20/23 Sodium 144 mmol/L (135-145) 12/20/23 Potassium 4.1 mmol/L (3.3-5.1) 12/20/23 Chloride 108 mmol/L (96-108) 12/20/23 Carbon Dioxide 28 mmol/L (22-29) 12/20/23 Calcium 9.2 mg/dL (8.4-10.2) 12/20/23 AST 17 U/L (5-37) 12/20/23 ALT 23 U/L (0-40) 12/20/23 Total Protein 7.6 g/dL (6.5-8.0) 12/20/23 Albumin 4.1 g/dL (3.5-5.0) 12/20/23 [facility] Medical History Physical exam 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 Right carotid artery occlusion B12 deficiency Hypertension Dyslipidemia Diabetic nephropathy associated with type 2 diabetes mellitus Proliferative diabetic retinopathy associated with type 2 diabetes mellitus Vitamin D deficiency Neuropathy Diabetes mellitus Surgical History No pertinent past surgical history Family History Father Heart disease Mother HTN (hypertension) Social History Household Members: Spouse Housing: Apartment Alcohol intake: former Patient Tobacco Use Status: Former Tobacco user Tobacco use type: Cigarette e-Cigarette/Vaping Use: Never Used Second Hand Smoke Exposure: No service: No Current occupational status: disabled Cognitive needs: No Hearing needs: No Vision needs: Yes Assessment & Plan Assessment & Plan (1) Type 2 diabetes mellitus with diabetic polyneuropathy: Code(s): E11.42 - Type 2 diabetes mellitus with diabetic polyneuropathy Qualifiers: Diabetes mellitus nursing home insulin use: with nursing home use Qualified Code(s): E11.42 - Type 2 diabetes mellitus with diabetic polyneuropathy; Z79.4 - prison (current) use of insulin Plan: Personal Continuous Glucose Monitor: Patients CGM information reviewed Reviewed patient's sensor data: Hypoglycemia: ? 0% Hyperglycemia:? 77% Time in Range:23%? Average glucose for the last 2 weeks? 226 mg/dL Recomended Pt increase below Tresiba 75 units daily Novolog 20 units before meals Take insulin pen with you when you are eating out Discussed increasing physical activity and reducing carb portion at meal, Reviewed how to interpret trend arrows Reminded patient that to check finger sticks if symptoms do not match sensor reading. Discussed lag time between finger stick and sensor data.? Patient able to insert sensor independently at home without issue.? Pt will f/u with PA in 05/2024 Portions of this note were created using voice recognition software, please excuse any words or phrases that may have been misinterpreted. Patient Instructions: Tresiba 75 unidades diarias Novolog 20 unidades antes de las comidas Coding Level of Care Code Est Pt Level 1 (82961) Diagnoses Type 2 diabetes mellitus with diabetic polyneuropathy, with long-term current use of insulin E11.42; Z79.4 Diabetes mellitus terminal carman insulin use: with nursing home use
== END 2024-04-27 10:57 | disposition home or self-care (01) ==
PROVIDERS: PCP Internal Medicine; Visit Provider Registered Nurse Diabetes Educator
DX: E11.42 Type 2 diabetes mellitus with diabetic polyneuropathy (principal); Z79.4 Long term (current) use of insulin

== ENCOUNTER → 2024-04-27 10:15 | Outpatient (BNVA) | payer OTHER, SELFPAY | PROVIDERS: PCP Internal Medicine; Visit Provider Registered Nurse Diabetes Educator | DX: E11.42 Type 2 diabetes mellitus with diabetic polyneuropathy (principal); Z79.4 Long term (current) use of insulin | CPT/HCPCS: 99211 ==

== ENCOUNTER 2024-06-01 08:14 | Outpatient (AMB) | payer OTHER, SELFPAY ==
--- NOTE | 2024-06-01 08:15 | A.OFFVIS_ITS ---
Vital Signs 06/01/24 08:16 Height 5 ft 8 in Weight 187 lb 6.287 oz BMI 28.5 BP 118/78 Blood Pressure Location Rt brachial Position Sitting Pulse 74 Pulse Source Pulse Oximeter Intake Visit Reasons: T2DM/LVM Intake Note: Patient presents today for to re-establish treatment for Type 2 Diabetes Mellitus: Last Diabetic eye exam was on: 11/2023 Last Podiatry exam was on: Does not see a Proposal Coordinator Most recent HbA1c: 06/01/2024 Random Glucose- 251 mg/dL, Today Film Processing Shift Supervisor Required: Yes Film Processing Shift Supervisor Language: Seat Installer Services: Film Processing Shift Supervisor Present Film Processing Shift Supervisor Name: OLGA LIDIA Vee/QI RUBY Accompanied by: Significant Other Allergies No Known Allergies Allergy (Verified 06/01/24 08:16) HPI Comments Details: Patient is a 68-year-old male with DM type 2 diagnosed 20 years ago who presents for continued management of diabetes. straightener hand present for visit. The patient is accompanied by his . He was last seen in Endocrinology on 01/28/[address] Hdz. He had a visit with the diabetes educator on 04/27/2024. Since then he increased NovoLog to 20 units 3 times daily with meals. Toujeo was increased to 75 units, but he is taking 72 units because he had 1 episode of hypoglycemia. Blood sugar was 75, but he felt dizzy. He treated the symptoms with juice.States he usually has symptoms of hypoglycemia if glucose is under 100. Denies hyperglycemia symptoms. 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 Diabetes medications: Toujeo 72 units, NovoLog 20 units before meals, Metformin 500mg bid. Jardiance 25 mg daily, Januvia 100 mg. Had cellulitis with Freestyle evert pro. Reported diarrhea with Trulicity. Reported diarrhea with higher doses of metformin. I reviewed today's CGM download: CGM in use: 52.3% of the time Average glucose: 198 Blood glucose in target range (70-180) 44% of the time Blood glucose high (181-250) 37% of the time Blood glucose very high (>250) 19% of the time Blood glucose low (55-69) 0% of the time Blood glucose very low (less than 55) 0% of the time Hemoglobin a1c 8.8% today. Activity: He walks half a mile some days or rides his bicycle. He has been eating a full pack of mentos chewable candies most days. ROS: Constitutional: No fevers or chills. Eyes: No vision changes Respiratory: No shortness of breath Cardiovascular: No chest pain Neurologic: No headache, dizziness, syncope Physical exam: Constitutional: Alert, in no distress. Eyes: Pupils are equal, round and reactive to light. Extraocular muscles intact. Neck: Supple, Full range of motion. No lymphadenopathy. No palpable thyroid masses. Respiratory: Clear to auscultation. Cardiovascular: S1 S2 regular. No murmurs. Neurologic: No focal neurological deficits. Right foot: Warm and well perfused. No clubbing, cyanosis or edema. DP pulse 3+. Decreased vibratory sensation. Absent sensation to monofilament aside from the great toe. Left foot: Warm and well perfused. No clubbing, cyanosis or edema. DP pulse 3+. Decreased vibratory sensation. Mildly decreased sensation to monofilament throughout. 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 Right carotid artery occlusion B12 deficiency Hypertension Dyslipidemia Diabetic nephropathy associated with type 2 diabetes mellitus Proliferative diabetic retinopathy associated with type 2 diabetes mellitus Vitamin D deficiency Neuropathy Diabetes mellitus Surgical History No pertinent past surgical history Family History Father Heart disease Mother HTN (hypertension) Social History Household Members: Spouse Housing: Apartment Alcohol intake: former Patient Tobacco Use Status: Former Tobacco user Tobacco use type: Cigarette e-Cigarette/Vaping Use: Never Used Second Hand Smoke Exposure: No service: No Current occupational status: disabled Cognitive needs: No Hearing needs: No Vision needs: Yes Physical Exam Vital Signs: Last Vital Signs Pulse 74 06/01/24 08:16 BP 118/78 06/01/24 08:16 BMI result Body Mass Index 28.5 Results AMB Hemoglobin A1c AMB Hemoglobin A1c 8.8 % Last Edit by OLGA LIDIA Vee on 06/01/24 08:47 Results Reviewed Results Reviewed: Laboratory Last Values Glucose (Clinic) 251 mg/dL (60-115) H 06/01/24 08:23 Hgb A1c (Clinic) 8.8 % (4.0-6.0) H 06/01/24 08:29 Assessment & Plan Assessment & Plan (1) Type 2 diabetes mellitus with diabetic polyneuropathy: Code(s): E11.42 - Type 2 diabetes mellitus with diabetic polyneuropathy Category: Medical Qualifiers: Diabetes mellitus ad terminal makeup operator insulin use: with mcc use Qualified Code(s): E11.42 - Type 2 diabetes mellitus with diabetic polyneuropathy; Z79.4 - ad terminal makeup operator (current) use of insulin Plan: In summary this is a 68-year-old male with type 2 diabetes with known micro and macrovascular complications with sub optimal but improving glycemic control. He benefited from recent adjustments to his insulin regimen. We discussed possible addition of GLP 1 given his cardiovascular risk, but he is not willing to do so at this time and given paucity of data and patient's propensity to experience hypoglycemia with glucose under 100 will defer further increase of insulin at this time. Encouraged him to scan sensor at least 4 times daily. He does agree to switch to sugar free candy. We will reassess in 3 months time. Orders: Orders AMB Hemoglobin A1c Today E11.42 - Type 2 diabetes mellitus with diabetic polyneuropathy, Z79.4 - ad terminal makeup operator (current) use of insulin Coding Level of Care Code Est Pt Level 5 (51756) Complex EM visit Add On G2211 Diagnoses Type 2 diabetes mellitus with diabetic polyneuropathy, with long-term current use of insulin E11.42; Z79.4 Diabetes mellitus mcc insulin use: with ad terminal makeup operator use Time Spent (min) 42 Comment seeing the patient, reviewing prior records, updating the medical chart
[2024-06-01 08:16] VITALS: BP 118/78; PULSE 74; BMI 28.5
[2024-06-01 08:28] LABS: Glucose, Whole Blood 251 mg/dL (60-115)
== END 2024-06-01 08:56 | disposition home or self-care (01) ==
PROVIDERS: PCP Internal Medicine; Visit Provider Physician Assistant Medical
DX: E11.42 Type 2 diabetes mellitus with diabetic polyneuropathy (principal); Z79.4 Long term (current) use of insulin
CPT/HCPCS: 99215; G2211

== ENCOUNTER → 2024-06-01 08:14 | Outpatient (BNVA) | payer OTHER, SELFPAY | PROVIDERS: PCP Internal Medicine; Visit Provider Physician Assistant Medical | DX: E11.42 Type 2 diabetes mellitus with diabetic polyneuropathy (principal); E11.21 Type 2 diabetes mellitus with diabetic nephropathy; E11.3599 Type 2 diabetes mellitus with proliferative diabetic retinopathy without macular edema, unspecified eye; E11.65 Type 2 diabetes mellitus with hyperglycemia; Z79.4 Long term (current) use of insulin | CPT/HCPCS: 82947; 83036; 99212 ==

== ENCOUNTER 2024-08-07 07:37 | Outpatient (REF) | payer OTHER, SELFPAY ==
[2024-08-07 09:23] LABS: Alanine Aminotransferase 21 U/L (0-40); Alkaline Phosphatase 93 U/L (39-117); Anion Gap 11 (12-20); Aspartate Amino Transferase 15 U/L (5-37); Bilirubin Total 0.2 mg/dL (0.0-1.0); Blood Urea Nitrogen 14 mg/dL (9-16); Calcium 8.9 mg/dL (8.4-10.2); Carbon Dioxide 28 mmol/L (22-29); Chloride 108 mmol/L (96-108); Cholesterol 119 mg/dL (<200); Estimated Glomerular Filt Rate > 60; Glucose Fasting 92 mg/dL (60-99); HDL Cholesterol 28 mg/dL (>40); LDL Cholesterol Calculated 61 mg/dL (<100); Potassium 4.3 mmol/L (3.3-5.1); Sodium 143 mmol/L (135-145); Total Protein 7.2 g/dL (6.5-8.0); Triglycerides 152 mg/dL (<150)
[2024-08-07 09:30] LABS: Creatinine Urine 101.14 mg/dL; Microalbum/Creatinine Ratio Ur 39.5 ug/mg cr (<30)
== END 2024-08-07 07:38 | disposition home or self-care (01) ==
LOC: HO.LAB 07:37
PROVIDERS: PCP Internal Medicine; Visit Provider Internal Medicine
DX: E11.42 Type 2 diabetes mellitus with diabetic polyneuropathy (principal); E78.5 Hyperlipidemia, unspecified; E11.9 Type 2 diabetes mellitus without complications
CPT/HCPCS: 36415; 80053; 80061; 82043; 82570

== ENCOUNTER 2024-08-19 08:53 | Outpatient (AMB) | payer OTHER, SELFPAY ==
--- NOTE | 2024-08-19 09:12 | MHC.PC.OV ---
Vital Signs 08/19/24 09:17 Height 5 ft 8 in Weight 191 lb BMI 29.0 BP 110/72 Blood Pressure Location Lt brachial Position Sitting Intake Visit Reasons: PE Intake Note: Patient here for a physical exam Financial Advocate Required: No Accompanied by: Self / Same As Patient Allergies No Known Allergies Allergy (Verified 08/19/24 09:36) Medication List - Last Reconciled 08/19/24 by Tami Almodovar MD albuterol sulfate 90 mcg/actuation 2 puffs inhalation Q4-6H PRN alcohol swabs (Alcohol Prep Pads) 1 pad topical .8 times a day 30 days alpha lipoic acid 600 mg PO DAILY 30 days aspirin (Adult Aspirin Regimen) 81 mg PO DAILY 90 days atorvastatin 40 mg PO BEDTIME 90 days [bath mat As directed] blood pressure test kit-medium As directed blood sugar diagnostic (FreeStyle Test strips) 4 times a day blood-glucose meter (FreeStyle [place] kit) As directed cholecalciferol (vitamin D3) 50 mcg PO DAILY 30 days clopidogrel (Plavix) 75 mg PO DAILY cyanocobalamin (vitamin B-12) 100 mcg PO DAILY 30 days empagliflozin (Jardiance) 25 mg PO DAILY 90 days enalapril maleate 5 mg PO DAILY flash glucose scanning reader (Globial Jennifer 2 Rumsey) As directed insulin aspart U-100 (Novolog FlexPen U-100 Insulin aspart) 20 units (0.2 mL) subcut TID 90 days insulin glargine U-300 conc (Toujeo Max U-300 SoloStar) 72 units (0.24 mL) subcut DAILY lancets (FreeStyle Lancets) 4 times a day memantine 5 mg PO BID metformin 1,000 mg PO BID 90 days pantoprazole 40 mg PO BID 90 days pen needle, diabetic 4 times a day pregabalin 75 mg PO BEDTIME 30 days sertraline 50 mg PO DAILY sitagliptin phosphate (Januvia) 100 mg PO DAILY [tray table As directed] Tobacco use date assessed: 11/03/23 Fall risk assessment: No Falls in past year Last assessed Fall Risk: 08/19/24 Dental Screening Dental Screen Date: 08/19/24 Did you have a dental visit in the last 12 months?: No Did you have a dental problem in the last 6 months where you did not have access to dental care?: No Was dental information given to patient?: Patient has dentist HPI HPI Comments History of Present Illness Details This is a 69-year-old male with diabetes mellitus type 2 on long-term current use of insulin complicated by proliferative diabetic retinopathy bilateral and neuropathy and mild recurrent major depression as well as CVA with some mild cognitive impairment as residual deficit that comes today accompanied by for his physical exam. A1c has improved and this is follow by Endocrinology. Proliferative diabetic retinopathy is follow by Ophthalmology which is treating him with ocular injections and has seem to improve. On Lyrica for neuropathy. On SSRIs for depression and declines counseling. MRI shows chronic infarcts in right cerebral hemisphere. Colonoscopy done 2018 was normal and next colonoscopy should be 2028. Labs were discussed. Has umbilical hernia and will be referred to General surgery. 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 Right carotid artery occlusion B12 deficiency Hypertension Dyslipidemia Diabetic nephropathy associated with type 2 diabetes mellitus Proliferative diabetic retinopathy associated with type 2 diabetes mellitus Vitamin D deficiency Neuropathy Diabetes mellitus Surgical History No pertinent past surgical history Family History Father Heart disease Mother HTN (hypertension) Social History Household Members: Spouse Housing: Apartment Alcohol intake: former Patient Tobacco Use Status: Former Tobacco user Tobacco use type: Cigarette e-Cigarette/Vaping Use: Never Used Second Hand Smoke Exposure: No service: No Current occupational status: disabled Cognitive needs: No Hearing needs: No Vision needs: Yes Questionnaire PHQ-9 Over the last 2 weeks, how often have you been bothered by any of the following problems? 1. Little interest or pleasure in doing things: not at all 2. Feeling down, depressed, or hopeless: not at all 3. Trouble falling or staying asleep, or sleeping too much: nearly every day 4. Feeling tired or having little energy: more than half the days 5. Poor appetite or overeating: not at all 6. Feeling bad about yourself - or that you are a failure or have let yourself or your family down: not at all 7. Trouble concentrating on things, such as reading the newspaper or watching television: not at all 8. Moving or speaking so slowly that other people could have noticed. Or the opposite - being so fidgety or restless that you have been moving around a lot more than usual: not at all 9. Thoughts that you would be better off or of hurting yourself in some way: not at all Total score: 5 Depression Screening Interpretation: Positive Depression Screening Follow-up: Existing condition, In treatment and Follow-up Visit Requested Depression Screening Done: Yes [id number] - PHQ-9 Billing: Yes Source: Developed by Drs. Brad Espinal, Julia Guzman, Torsten Lindsey and colleagues, with an educational greg from [employer]. Thrive Questionnaire Date Thrive assessed: 12/01/23 LESA-7 AMB Questionnaire LESA-7 Date LSEA - 7 assessed: 12/01/23 Source: Developed by Drs. Brad Espinal, Julia Guzman, Torsten Lindsey and colleagues, with an educational greg from [employer]. Review of Systems Const All systems reviewed & are unremarkable except as noted in HPI and below Card Denies chest pain at rest, Denies chest pain with activity, Denies edema, Denies irregular heart rhythm, Denies claudication, Denies dyspnea, Denies dyspnea on exertion, Denies orthopnea, Denies paroxysmal nocturnal dyspnea and Denies slow heart rate Resp Denies cough, Denies dyspnea and Denies dyspnea on exertion GI Denies abdominal pain, Denies change in bowel habits, Denies excessive flatus, Denies nausea and Denies vomiting Denies urinary hesitancy, Denies urinary incontinence and Denies urinary urgency Musc Denies abnormal gait, Denies atrophy, Denies deformity and Denies limited range of motion Skin/Breast Denies bleeding lesions, Denies changing lesions and Denies rash Neuro Denies abnormal gait and Denies lack of coordination Physical exam (Primary Care) Vital Signs: Last Vital Signs BP 110/72 08/19/24 09:17 BMI result Body Mass Index 29.0 Tobacco/Smoking Status: Tobacco use Status Tobacco use date assessed 11/03/23 08/19/24 09:17 Patient Tobacco Use Status Former Tobacco user 08/19/24 09:17 Tobacco use type Cigarette 08/19/24 09:17 e-Cigarette/Vaping Use Never Used 08/19/24 09:17 PHQ-9: PHQ-9 Score PHQ-9: Total score 5 08/19/24 09:43 Depression Screening Interpretation: Positive Depression Screening Follow-up: Existing condition, In treatment and Follow-up Visit Requested Thrive Assessment: Date of Thrive Assessment Date Thrive assessed 12/01/23 08/19/24 09:17 HENMT Head: Yes normal to inspection, Yes normocephalic and Yes atraumatic Ears: external ears normal Eyes General: appearance normal, both eyes and all related structures Eyelids: Yes eyelids normal Conjunctivae: conjunctivae normal Neck Neck: Yes normal visual inspection and Yes supple Resp Effort & Inspection: normal respiratory effort Auscultation: clear to auscultation bilaterally Cardio Jugular venous distension: no JVD Rate: regular rate Rhythm: regular rhythm Heart sounds: S1 normal heart sound present and S2 normal heart sound present GI Inspection: Yes normal to inspection Palpation (GI): Soft to palpation, nontender and Hernia present umbilical Auscultation: normal bowel sounds Skin General skin exam: no rashes or lesions noted Neuro General: no focal motor deficits Extrem General: Yes full ROM Psych Appearance: grossly normal Office Procedures Advance Care Planning Advance Care Planning discussion: Exists, not on file Date of discussion: 08/19/24 Who was present: patient, and me Forms completed: Health Care Proxy Time spent: 1-15 minutes, on File Actual minutes spent: 1 Results AMB Hemoglobin A1c AMB Hemoglobin A1c 8.3 % Last Edit by OLGA LIDIA Wilkins on 08/19/24 09:32 Results Reviewed Results Reviewed: Laboratory Last Values Hgb A1c (Clinic) 8.3 % (4.0-6.0) H 08/19/24 09:17 Coding Level of Care Code Est Pt Level 3 (99188) Est Pt Prev Care >65y(34145) Diagnoses Physical exam Z00.00 Type 2 diabetes mellitus with diabetic polyneuropathy, with long-term current use of insulin E11.42; Z79.4 Diabetes mellitus intermediate accountant insulin use: with intermediate accountant use Mild recurrent major depression F33.0 Proliferative diabetic retinopathy of both eyes with macular edema associated with type 2 diabetes mellitus E11.3513 Diabetes mellitus macular edema: with macular edema Laterality: bilateral Cerebrovascular accident (CVA) due to embolism of cerebral artery I63.40 CVA mechanism: embolism Precerebral and cerebral artery: unspecified cerebral artery Umbilical hernia without obstruction and without gangrene K42.9 Obstruction and gangrene presence: without obstruction or gangrene CPT Codes Advance Care Planning - Time spent: 1-15 minutes, on File ([id number]) Time Spent (min) 35 Assessment & Plan Assessment & Plan (1) Physical exam: Code(s): Z00.00 - Encounter for general adult medical examination without abnormal findings Category: Medical Plan: Repeat in a year. (2) Type 2 diabetes mellitus with diabetic polyneuropathy: Code(s): E11.42 - Type 2 diabetes mellitus with diabetic polyneuropathy Category: Medical Qualifiers: Diabetes mellitus group home insulin use: with intermediate accountant use Qualified Code(s): E11.42 - Type 2 diabetes mellitus with diabetic polyneuropathy; Z79.4 - joint terminal attack controller (current) use of insulin Plan: Continue insulin. Continue Lyrica. A1c goal is equal or less than 7%. (3) Mild recurrent major depression: Code(s): F33.0 - Major depressive disorder, recurrent, mild Category: Medical Plan: Continue SSRIs. (4) Proliferative diabetic retinopathy associated with type 2 diabetes mellitus: Code(s): E11.3599 - Type 2 diabetes mellitus with proliferative diabetic retinopathy without macular edema, unspecified eye Category: Medical Qualifiers: Diabetes mellitus macular edema: with macular edema Laterality: bilateral Qualified Code(s): E11.3513 - Type 2 diabetes mellitus with proliferative diabetic retinopathy with macular edema, bilateral Plan: Follow-up with Ophthalmology. A1c goal is equal or less than 7%. (5) CVA (cerebral vascular accident): Code(s): I63.9 - Cerebral infarction, unspecified Category: Medical Qualifiers: CVA mechanism: embolism Precerebral and cerebral artery: unspecified cerebral artery Qualified Code(s): I63.40 - Cerebral infarction due to embolism of unspecified cerebral artery Plan: Continue aspirin for secondary prophylaxis. (6) Umbilical hernia: Code(s): K42.9 - Umbilical hernia without obstruction or gangrene Category: Medical Qualifiers: Obstruction and gangrene presence: without obstruction or gangrene Qualified Code(s): K42.9 - Umbilical hernia without obstruction or gangrene Plan: Ultrasound of the abdomen ordered. Referred to General surgery. Orders: Orders Comprehensive [place]. Panel Fast 4 Months E11.42 - Type 2 diabetes mellitus with diabetic polyneuropathy, Z79.4 - joint terminal attack controller (current) use of insulin AMB Hemoglobin A1c Today E11.42 - Type 2 diabetes mellitus with diabetic polyneuropathy, Z79.4 - joint terminal attack controller (current) use of insulin Lipid Panel 4 Months E78.5 - Hyperlipidemia, unspecified Microalbumin, Random (w Creat) 4 Months R80.9 - Proteinuria, unspecified Vitamin D 25-OH Total 4 Months E55.9 - Vitamin D deficiency, unspecified US abdomen limited Today K42.9 - Umbilical hernia without obstruction or gangrene Referrals General Surgery Referral K42.9 - Umbilical hernia without obstruction or gangrene
[2024-08-19 09:17] VITALS: BP 110/72; BMI 29.0
== END 2024-08-19 09:48 | disposition home or self-care (01) ==
LOC: HO.HMCH 08:54
PROVIDERS: PCP Internal Medicine; Visit Provider Internal Medicine
DX: Z00.00 Encounter for general adult medical examination without abnormal findings (principal); E11.42 Type 2 diabetes mellitus with diabetic polyneuropathy; Z79.4 Long term (current) use of insulin; F33.0 Major depressive disorder, recurrent, mild; E11.3513 Type 2 diabetes mellitus with proliferative diabetic retinopathy with macular edema, bilateral; I63.40 Cerebral infarction due to embolism of unspecified cerebral artery; K42.9 Umbilical hernia without obstruction or gangrene

== ENCOUNTER → 2024-08-19 08:53 | Outpatient (BNVA) | payer OTHER, SELFPAY | PROVIDERS: PCP Internal Medicine; Visit Provider Internal Medicine | DX: Z00.01 Encounter for general adult medical examination with abnormal findings (principal); E11.42 Type 2 diabetes mellitus with diabetic polyneuropathy; Z79.4 Long term (current) use of insulin; F33.0 Major depressive disorder, recurrent, mild; E11.3513 Type 2 diabetes mellitus with proliferative diabetic retinopathy with macular edema, bilateral; I63.40 Cerebral infarction due to embolism of unspecified cerebral artery; K42.9 Umbilical hernia without obstruction or gangrene | CPT/HCPCS: 83036; 96127; 99212; 99397 ==

== ENCOUNTER 2024-08-30 08:27 | Outpatient (REF) | payer OTHER, SELFPAY ==
--- NOTE | ~2024-08-30 | US_ITS ---
EXAMINATION: US ABDOMEN LIMITED CLINICAL INFORMATION: Umbilical hernia without obstruction or gangrene. COMPARISON: None available. TECHNIQUE: Real-time imaging of the umbilical region. FINDINGS: There is a defect in the anterior abdominal wall 9 mm through which complex solid structure protruding into the subcutaneous fat 2.8 cm most likely abdominal wall hernia. US/US abdomen limited IMPRESSION: Ultrasound confirms the presence of a complex solid structure protruding into the subcutaneous fat 2.8 cm most likely abdominal wall paraumbilical hernia. This could be confirmed with cross-sectional imaging CT scan or MRI with IV contrast. Electronically signed by: Edgard De Leon MD 09/05/2024 05:44 PM EST
== END 2024-08-30 08:28 | disposition home or self-care (01) ==
LOC: HO.US 08:27
PROVIDERS: PCP Internal Medicine; Visit Provider Internal Medicine
DX: K42.9 Umbilical hernia without obstruction or gangrene (principal)
CPT/HCPCS: 76705

== ENCOUNTER 2024-08-31 10:17 | Outpatient (AMB) | payer OTHER, SELFPAY ==
--- NOTE | 2024-08-31 10:25 | A.OFFVIS_ITS ---
Vital Signs 08/31/24 10:29 Height 5 ft 8 in Weight 192 lb 3.889 oz BMI 29.2 BP 130/58 L Blood Pressure Location Rt brachial Position Sitting Pulse 82 Pulse Source Pulse Oximeter Intake Visit Reasons: T2DM Intake Note: Patient present today to follow up on Type 2 Diabetes Mellitus. Last Diabetic Eye exam: 11/2023 Last Podiatry Visit: Does not see a Pattern Grader Supervisor Random Glucose: 209 mg/dl HgA1C: 8.3% 08/19/24 Senior Sales Representative Required: Yes Senior Sales Representative Language: Leather Shaver Services: Senior Sales Representative Present Senior Sales Representative Name: Pablo [id number] Information Interpreted: non-clinical & clinical Accompanied by: Spouse Allergies No Known Allergies Allergy (Verified 08/31/24 10:30) HPI Comments Details: Patient is a 69-year-old male with DM type 2 diagnosed 20 years ago who presents for continued management of diabetes. [place] video court interpreter used for visit. The patient is accompanied by his . He was last seen in Endocrinology on 06/01/24. He had a visit with the clinical educator on 04/27/2024. 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 Diabetes medications: Toujeo 72 units nightly, NovoLog 20 units before meals, Metformin 1000mg bid, Jardiance 25 mg daily, Januvia 100 mg. Had cellulitis with Freestyle evert pro. Reported diarrhea with Trulicity. Compliance: Denies noncompliance. Reviewed limited data from glucometer download. Very high 41% High 41% 18% in range 0% hypoglycemia Patient experiences hyperglycemia throughout the day with bikes between 8 and 10 p.m. Hypoglycemia: one episode 2 months ago in the morning. Treated with juice. Hemoglobin a1c was 8.3% 08/19/2024 down from 8.8%. ROS: Constitutional: No fevers or chills. Eyes: No vision changes Respiratory: No shortness of breath Cardiovascular: No chest pain Neurologic: No headache, dizziness, syncope Physical exam: Constitutional: Alert, in no distress. Eyes: Pupils are equal, round and reactive to light. Extraocular muscles intact. Neck: Supple, Full range of motion. No lymphadenopathy. No palpable thyroid masses. Respiratory: Clear to auscultation. Cardiovascular: S1 S2 regular. No murmurs. Neurologic: No focal neurological deficits. 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 Right carotid artery occlusion B12 deficiency Hypertension Dyslipidemia Diabetic nephropathy associated with type 2 diabetes mellitus Proliferative diabetic retinopathy associated with type 2 diabetes mellitus Vitamin D deficiency Neuropathy Diabetes mellitus Surgical History No pertinent past surgical history Family History Father Heart disease Mother HTN (hypertension) Social History Household Members: Spouse Housing: Apartment Alcohol intake: former Patient Tobacco Use Status: Former Tobacco user Tobacco use type: Cigarette e-Cigarette/Vaping Use: Never Used Second Hand Smoke Exposure: No service: No Current occupational status: disabled Cognitive needs: No Hearing needs: No Vision needs: Yes Results Reviewed Results Reviewed: Laboratory Tests 01/28/24 06/01/24 08/07/24 08:03 08:29 08:00 Creatinine 1.08 Estimated GFR > 60 Hgb A1c (Clinic) 10.3 H 8.8 H Triglycerides 152 H Cholesterol 119 LDL Cholesterol, Calc 61 HDL Cholesterol 28 L Urine Creatinine 101.14 Urine Microalbumin 40.0 Microalb/Creat Ratio 39.5 H 08/19/24 09:17 Creatinine Estimated GFR Hgb A1c (Clinic) 8.3 H Triglycerides Cholesterol LDL Cholesterol, Calc HDL Cholesterol Urine Creatinine Urine Microalbumin Microalb/Creat Ratio Assessment & Plan Assessment & Plan (1) Type 2 diabetes mellitus with diabetic polyneuropathy: Code(s): E11.42 - Type 2 diabetes mellitus with diabetic polyneuropathy Category: Medical Qualifiers: Diabetes mellitus terminal clerk insulin use: with terminal clerk use Qualified Code(s): E11.42 - Type 2 diabetes mellitus with diabetic polyneuropathy; Z79.4 - predatory animal exterminator (current) use of insulin Plan: In summary this is a 69-year-old male with type 2 diabetes with known micro and macrovascular complications with sub optimal but improving glycemic control. Continue Toujeo 72 units nightly. Patient had more frequent hypoglycemia when he increase to 75 units. Continue NovoLog 20 units before meals. Continue Jardiance 25 mg daily. Continue metformin 1000 mg twice daily. We discussed history of CVA and alternative medications to Januvia to help decrease cardiovascular risk including GLP 1 and Actos. The patient elects to try Actos. We discussed adverse events and risks with this medication including heart failure and possibly increased risk of bladder cancer. We will check baseline BNP and urinalysis. If BNP is elevated I will order an echocardiogram. He will stop Januvia and start Actos 15 mg daily. Recommended follow up in a month, but they are traveling to [place] so he will return in 3 weeks to reassess. Lifestyle modifications reviewed with the patient. He saw the clinical educator. He declines referral to the industrial robotics mechanic at this time. Reviewed proper treatment of hypoglycemia and sent glucose tablets to the pharmacy. Written instructions given to patient in [place]. Follow up in 3 weeks for type 2 diabetes. Orders: Orders UA w Microscopic Today R39.9 - Unspecified symptoms and signs involving the genitourinary system B Type Natriuretic Peptide Today E11.9 - Type 2 diabetes mellitus without complications Medications: New pioglitazone (Actos) 15 mg PO DAILY 90 tabs 0RF glucose (Dex4 Glucose) until symptoms of low blood sugar are controlled 16 grams (4 x 4 gram) PO Q15M PRN 10 tabs 1RF hypoglycemia Refilled insulin glargine U-300 conc (Toujeo Max U-300 SoloStar) 72 units (0.24 mL) subcut DAILY 18 mL 3RF empagliflozin (Jardiance) 25 mg PO DAILY 90 days 90 tabs 1RF E11.29 - Type 2 diabetes mellitus with other diabetic kidney complication, R80.9 - Proteinuria, unspecified, Z79.4 - shelter (current) use of insulin Discontinued sitagliptin phosphate (Januvia) Discontinued Reason: Doctor's Order 100 mg PO DAILY 90 tabs 3RF E11.29 - Type 2 diabetes mellitus with other diabetic kidney complication, R80.9 - Proteinuria, unspecified, Z79.4 - predatory animal exterminator (current) use of insulin Patient Instructions: Stop Januvia and start Actos (Pioglitazone) 15 mg once daily. Continue all other medications. Deje de patel Januvia y comience con Actos (Pioglitazone) 15 mg laura vez al d?a. Contin?e con todos los dem?s medicamentos. If you experience low blood sugar, treat this by eating a chewable fruit candy like skittles or jelly beans (about 8 pieces), 4 ounces (1/2 cup) of fruit juice (not diet), 1 tablespoon of honey or 4 glucose tablets. If your blood sugar is under 50, take double the amount of one of the above. Recheck your blood sugar in 15 minutes. Si experimenta un nivel bajo de az?car en la marsha, tr?telo comiendo un estella de fruta masticable sarah bolos o gominolas (aproximadamente 8 piezas), 4 onzas (1/2 taza) de jugo de fruta (no diet?michela), 1 cucharada de miel o 4 tabletas de glucosa. . Si ureña nivel de az?car en marsha es inferior a 50, tome el doble de porsha de los anteriores. Vuelva a controlar ureña nivel de az?car en la marsha en 15 minutos. Coding Level of Care Code Est Pt Level 5 (35000) Complex EM visit Add On G2211 Diagnoses Type 2 diabetes mellitus with diabetic polyneuropathy, with long-term current use of insulin E11.42; Z79.4 Diabetes mellitus snf insulin use: with snf use Time Spent (min) 45 Comment Chart review, direct patient care, completing documentation
[2024-08-31 10:29] VITALS: BP 130/58; PULSE 82; BMI 29.2
[2024-08-31 10:39] LABS: Glucose, Whole Blood 209 mg/dL (60-115)
== END 2024-08-31 11:06 | disposition home or self-care (01) ==
PROVIDERS: PCP Internal Medicine; Visit Provider Physician Assistant Medical
DX: E11.42 Type 2 diabetes mellitus with diabetic polyneuropathy (principal); Z79.4 Long term (current) use of insulin

== ENCOUNTER → 2024-08-31 10:17 | Outpatient (BNVA) | payer OTHER, SELFPAY | PROVIDERS: PCP Internal Medicine; Visit Provider Physician Assistant Medical | DX: E11.42 Type 2 diabetes mellitus with diabetic polyneuropathy (principal); E11.29 Type 2 diabetes mellitus with other diabetic kidney complication; R80.9 Proteinuria, unspecified; I10 Essential (primary) hypertension; E78.5 Hyperlipidemia, unspecified; R39.89 Other symptoms and signs involving the genitourinary system; Z79.84 Long term (current) use of oral hypoglycemic drugs; Z79.899 Other long term (current) drug therapy; Z79.4 Long term (current) use of insulin | CPT/HCPCS: 82947; 99212 ==

== ENCOUNTER 2024-09-14 10:47 | Outpatient (AMB) | payer OTHER, SELFPAY ==
--- NOTE | 2024-09-14 11:00 | MHC.OFFVIS ---
Vital Signs 09/14/24 11:11 Height 5 ft 8 in Weight 191 lb 6 oz BMI 29.1 BP 146/64 H Blood Pressure Location Lt brachial Position Sitting Pulse 75 Intake Visit Reasons: umbilical hernia Intake Note: Pt is seen in office for evaluation of an umbilical hernia. Pt c/o: onset 6 months does recall any heavy lifting or constipation, no prior surgeries in the area, reducible, denies n/v/d/c, no pain in the area us abd:08/30/24 Mandrel Cleaner Required: Yes Mandrel Cleaner Language: Croatian Accompanied by: Spouse Allergies No Known Allergies Allergy (Verified 09/14/24 11:01) Medication List - Last Reconciled 09/14/24 by Elier Mason MD albuterol sulfate 90 mcg/actuation 2 puffs inhalation Q4-6H PRN alcohol swabs (Alcohol Prep Pads) 1 pad topical .8 times a day 30 days alpha lipoic acid 600 mg PO DAILY 30 days aspirin (Adult Aspirin Regimen) 81 mg PO DAILY 90 days atorvastatin 40 mg PO BEDTIME 90 days [bath mat As directed] blood pressure test kit-medium As directed blood sugar diagnostic (FreeStyle Test strips) 4 times a day blood-glucose meter (FreeStyle Sumpter kit) As directed cholecalciferol (vitamin D3) 50 mcg PO DAILY 30 days clopidogrel (Plavix) 75 mg PO DAILY cyanocobalamin (vitamin B-12) 100 mcg PO DAILY 30 days empagliflozin (Jardiance) 25 mg PO DAILY 90 days enalapril maleate 5 mg PO DAILY flash glucose scanning reader (RevolucionadolabsStyle Jennifer [facility] [place]) As directed glucose (Dex4 Glucose) 16 grams (4 x 4 gram) PO Q15M PRN insulin aspart U-100 (Novolog FlexPen U-100 Insulin aspart) 20 units (0.2 mL) subcut TID 90 days insulin glargine U-300 conc (Toujeo Max U-300 SoloStar) 72 units (0.24 mL) subcut DAILY lancets (FreeStyle Lancets) 4 times a day memantine 5 mg PO BID metformin 1,000 mg PO BID 90 days pantoprazole 40 mg PO BID 90 days pen needle, diabetic 4 times a day pioglitazone (Actos) 15 mg PO DAILY pregabalin 75 mg PO BEDTIME 30 days sertraline 50 mg PO DAILY [tray table As directed] HPI Comments Details: 69-year-old male patient presenting for evaluation of an umbilical hernia. He 1st noted the lump approximately 6 months ago since this time the lump has increased in size and caused only mild discomfort. He denies any prior surgery in this location. He denies nausea, vomiting, fever or chills. Does report some mucus leakage after having a bowel movement but does report a previous colonoscopy approximately 2 years ago which was reported to be normal. No record of this test is available at the time of this dictation. He is requesting repair of this umbilical hernia. 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 Right carotid artery occlusion B12 deficiency Hypertension Dyslipidemia Diabetic nephropathy associated with type 2 diabetes mellitus Proliferative diabetic retinopathy associated with type 2 diabetes mellitus Vitamin D deficiency Neuropathy Diabetes mellitus Surgical History No pertinent past surgical history Family History Father Heart disease Mother HTN (hypertension) Social History Household Members: Spouse Housing: Apartment Alcohol intake: former Patient Tobacco Use Status: Former Tobacco user Tobacco use type: Cigarette e-Cigarette/Vaping Use: Never Used Second Hand Smoke Exposure: No service: No Current occupational status: disabled Cognitive needs: No Hearing needs: No Vision needs: Yes Review of Systems Const All systems reviewed & are unremarkable except as noted in HPI and below Physical Exam Vital Signs: Last Vital Signs Pulse 75 09/14/24 11:11 BP 146/64 H 09/14/24 11:11 BMI result Body Mass Index 29.1 Const General: cooperative and no acute distress Nutritional Appearance: well nourished Orientation/consciousness: patient oriented x3 Limitations: no limitations HEENT Head: Yes normocephalic and Yes atraumatic Ears: hearing grossly normal bilaterally Resp Effort & Inspection: normal respiratory effort, no audible wheezes, no cough and no respiratory distress Cardio Jugular venous distension: no JVD GI Inspection: Yes normal to inspection Palpation (GI): Soft to palpation, nontender, no guarding, not rigid and No hepatosplenomegaly present Percussion: Yes normal to percussion Auscultation: normal bowel sounds Rectal Exam - Male: No deferred Abdomen image: 1. 2 cm reducible umbilical hernia which increases with Valsalva but reduces with light pressure. No tenderness is elicited with palpation. Skin Other: Warm, dry, no rash Neuro General: patient oriented x3 Extrem General: Yes no clubbing, cyanosis or edema Assessment & Plan Assessment & Plan (1) Umbilical hernia: Code(s): K42.9 - Umbilical hernia without obstruction or gangrene Category: Medical Qualifiers: Obstruction and gangrene presence: without obstruction or gangrene Qualified Code(s): K42.9 - Umbilical hernia without obstruction or gangrene Plan 69-year-old male patient presenting with a reducible umbilical hernia measuring approximately 2 cm in diameter. Patient has requested repair of this umbilical hernia and after a discussion of the procedure, risks and alternatives, he consents to a repair of the umbilical hernia with mesh. This will be scheduled as a short-stay surgery at his earliest convenience. Coding Level of Care Code New Pt Level 4 (07631) Diagnoses Umbilical hernia without obstruction and without gangrene K42.9 Obstruction and gangrene presence: without obstruction or gangrene
[2024-09-14 11:11] VITALS: BP 146/64; PULSE 75; BMI 29.1
== END 2024-09-14 11:20 | disposition home or self-care (01) ==
PROVIDERS: PCP Internal Medicine; Visit Provider Surgery
DX: K42.9 Umbilical hernia without obstruction or gangrene (principal)
CPT/HCPCS: 99204

== ENCOUNTER → 2024-09-14 10:47 | Outpatient (BNVA) | payer OTHER, SELFPAY | PROVIDERS: PCP Internal Medicine; Visit Provider Surgery | DX: K42.9 Umbilical hernia without obstruction or gangrene (principal) | CPT/HCPCS: 99202 ==

== ENCOUNTER 2024-09-23 10:47 | Emergency (ER) | payer OTHER, SELFPAY ==
--- NOTE | ~2024-09-23 | XR_ITS ---
EXAMINATION: XR ABDOMEN KUB CLINICAL INDICATION: urge to pass BM ?constipation COMPARISON: None available. TECHNIQUE: AP view of the abdomen. FINDINGS: Bowel gas pattern is normal/nonspecific. No focally dilated loops or evidence of obstruction. Abundant stool is seen throughout the colon, with relative sparing of the sigmoid and rectum. Aside from vascular calcifications, no abnormal soft tissue calcifications. No organomegaly. Osseous structures demonstrate mild degenerative changes of the spine with mild levoconvex scoliosis. XR/XR KUB IMPRESSION: 1. No bowel obstruction or acute abnormalities. 2. Moderate constipation with sparing of the sigmoid and rectal vault. Electronically signed by: Amadou Dawson MD 09/23/2024 12:57 PM [facility]
[2024-09-23 11:14] VITALS: BP 143/68; PULSE 71; RESP 18; TEMP 36.5; O2SAT 98; BMI 28.2
--- NOTE | 2024-09-23 11:15 | ED.GENADULT ---
HPI - General Adult General Chief complaint: Abdominal Pain Stated complaint: Intestinal issues Time Seen by Provider: 09/23/24 14:49 Source: patient, family, RN notes reviewed and old records reviewed Mode of arrival: ambulatory History of Present Illness ED Provider: Ann Elaine PA-C HPI narrative: 69-year-old male with a past medical history of diabetes, CVA, anxiety, HLD, GERD, HTN, neuropathy, presenting to the ED complaining of constant/frequent urge to have bowel movement and feels as though he soils himself, however goes to the bathroom and there is nothing there. Admits to regular BMs, denies constipation or diarrhea, melena/brbpr, abdominal pain, nausea/vomiting, dysuria/hematuria, incontinence/retention. Related Data Home Medications ?Medication ?Instructions ?Recorded ?Confirmed memantine 5 mg tablet 5 mg PO BID 08/19/24 09/14/24 Previous Rx's ?Medication ?Instructions ?Recorded alcohol swabs (Alcohol Prep Pads) 1 pad topical .8 times a day 30 02/28/21 days #200 ea alpha lipoic acid 600 mg capsule 600 mg PO DAILY 30 days #30 caps 02/28/21 flash glucose scanning reader #1 ea 04/18/21 (SnapLayoutyle Jennifer 2 [place]) cholecalciferol (vitamin D3) 50 50 mcg PO DAILY 30 days #30 caps 11/15/21 mcg (2,000 unit) capsule cyanocobalamin (vitamin B-12) 100 100 mcg PO DAILY 30 days #30 tabs 11/15/21 mcg tablet sertraline 50 mg tablet 50 mg PO DAILY #90 tabs 01/08/22 lancets 28 gauge (FreeStyle #120 ea 02/25/22 Lancets) blood pressure test kit-medium #1 ea 09/03/22 tray table #1 ea 05/17/23 bath mat #1 ea 06/18/23 albuterol sulfate 90 mcg/actuation 2 puff inhalation Q4-6H PRN 10/28/23 aerosol inhaler shortness of breath or wheezing #6.7 grams clopidogrel 75 mg tablet (Plavix) 75 mg PO DAILY #90 tabs 01/21/24 pen needle, diabetic 32 gauge x #400 ea 01/26/24 1/6 aspirin 81 mg tablet,delayed 81 mg PO DAILY 90 days #90 tabs 02/21/24 release (Adult Aspirin Regimen) atorvastatin 40 mg tablet 40 mg PO BEDTIME 90 days #90 tabs 02/21/24 insulin aspart U-100 100 unit/mL 20 unit (0.2 mL) subcut TID 90 02/24/24 (3 mL) subcutaneous pen (Novolog days #54 mL FlexPen U-100 Insulin aspart) blood-glucose meter (FreeStyle #1 ea 03/04/24 Edgecomb kit) enalapril maleate 5 mg tablet 5 mg PO DAILY #90 tabs 04/20/24 metformin 1,000 mg tablet 1,000 mg PO BID 90 days #180 tabs 04/20/24 blood sugar diagnostic (FreeStyle #120 ea 08/25/24 Test strips) empagliflozin 25 mg tablet 25 mg PO DAILY 90 days #90 tabs 08/31/24 (Jardiance) glucose 4 gram chewable tablet 16 g (4 x 4 gram) PO Q15M PRN 08/31/24 (Dex4 Glucose) hypoglycemia #10 tabs insulin glargine U-300 conc 300 72 unit (0.24 mL) subcut DAILY #18 08/31/24 unit/mL (3 mL) subcutaneous pen mL (Toujeo Max U-300 SoloStar) pioglitazone 15 mg tablet (Actos) 15 mg PO DAILY #90 tabs 08/31/24 pantoprazole 40 mg tablet,delayed 40 mg PO BID 90 days #180 tabs 09/16/24 release pregabalin 75 mg capsule 75 mg PO BEDTIME 30 days #30 caps 09/16/24 polyethylene glycol 3350 17 17 g PO DAILY PRN constipation 09/23/24 gram/dose oral powder (Miralax) #119 grams Allergies Allergy/AdvReac Type Severity Reaction Status Date / Time No Known Allergies Allergy Verified 09/23/24 11:16 Review of Systems Review of Systems: Yes all other systems are reviewed and are negative Constitutional: Constitutional: Reports as per [facility] Past Medical History Attestation statement: The following information was validated with the patient. 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 Right carotid artery occlusion B12 deficiency Hypertension Dyslipidemia Diabetic nephropathy associated with type 2 diabetes mellitus Proliferative diabetic retinopathy associated with type 2 diabetes mellitus Vitamin D deficiency Neuropathy Diabetes mellitus Surgical History No pertinent past surgical history Family History Family History Father Heart disease Mother HTN (hypertension) Social History Social History Household Members: Spouse Housing: Apartment Alcohol intake: former Patient Tobacco Use Status: Former Tobacco user Tobacco use type: Cigarette Smoked in Last 30 Days: No e-Cigarette/Vaping Use: Never Used Second Hand Smoke Exposure: No Use of substances other than those prescribed or required for medical reasons: No Advance Directives: Yes Advance Directives on File: Yes Advance Directives Date on File: 08/19/24 Do you have a plan to hurt others: No Plan service: No Current occupational status: disabled Cognitive needs: No Hearing needs: No Vision needs: Yes Physical Exam ED Vital Signs: Vital Signs - 24 hr 09/23/24 11:14 09/23/24 14:34 09/23/24 16:04 Temperature 97.7 F 97.6 F 97.6 F Pulse Rate 71 73 73 Respiratory Rate 18 16 16 Blood Pressure 143/68 H 138/71 138/71 Pulse Oximetry 98 98 98 Oxygen Delivery Method Room Air Room Air Room Air BMI result Body Mass Index 28.2 Const General: cooperative, healthy appearing and no acute distress Orientation/consciousness: patient oriented x3 Limitations: no limitations HENMT Head: Yes normal to inspection and Yes atraumatic Ears: hearing grossly normal bilaterally General nose exam: Normal external nose present Face and sinus: Yes normal facial exam Eyes General: appearance normal, both eyes and all related structures EOM: EOMs intact bilaterally Neck Neck: Yes normal visual inspection and Yes no meningeal signs Resp Effort & Inspection: normal respiratory effort and no respiratory distress Cardio Rate: regular rate GI Inspection: Yes normal to inspection Palpation (GI): Soft to palpation, nontender, no guarding and not rigid Rectal Exam - Male: Yes normal sphincter tone, No External hemorrhoid(s) present, No Internal hemorrhoid(s) present and No Fistula present (GI) General: Yes no CVA tenderness Back/Spine/Pelvis Back: no CVA tenderness Skin Rashes: no rashes Wounds: no wounds Neuro General: patient oriented x3, tone normal and no meningeal signs Cranial nerves: Yes CN's II-XII intact bilaterally Gait exam (Neuro): Normal gait present Extrem General: Yes normal to inspection Course Course Course Narrative: This is a Rapid Medical Examination (RME) performed by Ana Farris PA-C in triage. Full HPI, ROS, assessment and treatment plan per primary provider in the Main ED. 69 yo male hx of diabetes with neuropathy, HTN, HLD and CVA here for eval of ?constipation. reports urge to pass BM however nothing comes out x weeks. admits to BM this morning. no melena or hematochezia. no abd pain. passing flatus. no hx of similar. reports patient was recently started on a new insulin, is concerned this may be contributing. + abd soft, ND/NT Plan: labs, KUB -labs reassuring XR KUB IMPRESSION: 1. No bowel obstruction or acute abnormalities. 2. Moderate constipation with sparing of the sigmoid and rectal vault. -UA negative Results discussed with patient including worrisome signs and symptoms and strict return precautions, and when to return to the emergency department. They verbalized understanding and feel safe for discharge at this time. Medical Decision Making Medical Decision Making [facility] Narrative: 69-year-old male with a past medical history of diabetes, CVA, anxiety, HLD, GERD, HTN, neuropathy, presenting to the ED complaining of constant/frequent urge to have bowel movement and feels as though he soils himself, however goes to the bathroom and there is nothing there. On exam vital signs stable, NAD, nontoxic appearing abdomen soft/nontender. Rectal exam WNL. Normal rectal tone, no fissures. Concern for ?Constipation. No evidence of fecal impaction or fissure. Concern for urinary retention or urge incontinence. Plan: Labs, UA, KUB, re-evaluate Please refer to course for remaining clinical decision making, interpretation of labs/imaging results, and discussions with consultants and/or family members. Differential Diagnosis Differential Diagnoses: The differential diagnosis associated with the presentation includes As above Lab Data [facility] Lab Attestation statement: I reviewed the patient's lab results. 09/23/24 11:30 09/23/24 11:30 Labs: Lab Results 12/05/24 12/05/24 Range/Units 11:30 15:18 WBC 6.4 (4.8-10.8) X10*3/uL RBC 5.20 (4.60-5.80) X10*6/uL Hgb 13.2 L (14.0-18.0) g/dl Hct 41.3 L (42.0-52.0) % MCV 79.4 L (80.0-98.0) fL MCH 25.4 L (27.0-33.0) pg MCHC 32.0 (31.0-36.0) g/dl RDW 15.2 (11.0-16.0) % Plt Count 249 (160-400) X10*3/uL MPV 9.8 (9.4-12.4) fL Immature Gran % (Auto) 0.2 (0.0-0.4) % Neut % (Auto) 53.8 (45-73) % Lymph % (Auto) 32.7 (20-40) % [place] % (Auto) 7.0 (2-11) % Eos % (Auto) 5.0 H (0-4) % Baso % (Auto) 1.3 (0-2) % Lymph # (Auto) 2.1 (1.2-4.9) X10*3/uL [place] # (Auto) 0.5 (0.1-1.2) X10*3/uL Eos # (Auto) 0.3 (0.0-0.4) X10*3/uL Baso # (Auto) 0.1 (0.0-0.2) X10*3/uL Abs Immat Gran (auto) 0.01 (0.00-0.03) X10*3/uL Absolute Neuts (auto) 3.4 (2.0-8.3) x10*3/uL Absolute Nucleated RBC 0.000 (0.0-0.012) X10*3/uL Nucleated RBC % (auto) 0.0 (0.0-0.2) /100WBC Sodium 141 (135-145) mmol/L Potassium 4.9 (3.3-5.1) mmol/L Chloride 107 (96-108) mmol/L Carbon Dioxide 27 (22-29) mmol/L Anion Gap 12 (12-20) BUN 16 (9-16) mg/dL Creatinine 1.21 (0.5-1.4) mg/dL Estim Creat Clear Calc 61.0 Estimated GFR 59 Random Glucose 165 H (60-115) mg/dL Calcium 9.7 D (8.4-10.2) mg/dL Magnesium 1.9 (1.6-2.6) mg/dL Total Bilirubin 0.2 (0.0-1.0) mg/dL AST 19 (5-37) U/L ALT 23 (0-40) U/L Alkaline Phosphatase 83 (39-117) U/L Total Protein 7.6 (6.5-8.0) g/dL Albumin 4.0 (3.5-5.0) g/dL Lipase 24 (8-78) U/L Urine Color Yellow Urine Appearance Clear Urine pH 6.0 (5.0-9.0) Ur Specific [place] 1.025 (1.005-1.025) Urine Protein Negative (Neg-Trace) mg/dL Urine Glucose (UA) >=1000 H (Negative) mg/dL Urine Ketones Negative (Negative) mg/dL Urine Blood Negative (Negative) Urine Nitrite Negative (Negative) Ur Leukocyte Esterase Negative (Negative) Urine RBC 0-2 (0-2) /HPF Urine WBC 0-5 (0-5) /HPF Ur Squamous Epith Cells 0-2 (0-2) /HPF Urine Bacteria None Seen (None Seen) Hyaline Casts 0-2 (0-2) /LPF Independent Interpretation I performed an independent interpretation of an: Plain X-Ray Radiology Impression Discussion of test interpretation with radiology: I have reviewed the radiologist's reading. External Record Review External record reviewed: Inpatient record, Office record, Outpatient record, Prior outpatient labs, Prior outpatient radiology, Primary care record and Outside ED record Tests considered The following testing was considered but not selected: As above Chronic Conditions Patient?s care impacted by: Other Social Determinants Patient?s care significantly limited by Social Determinants of Health including: Other Social Determinant of Health Discharge Plan Discharge Clinical Impression: Constipation Patient Disposition: Home, Self-Care Instructions: Constipation (DC) Additional Instructions: Your x-ray shows moderate constipation however no stool in the rectal vault and no signs of obstruction Your blood work is reassuring You need to follow-up with gastroenterology, please call to make an appointment If her symptoms persist or worsen you are not having a bowel movement in the next 48 hours or you start passing gas or have constant worsening abdominal pain return to the ED Prescriptions: New polyethylene glycol 3350 [Miralax] 17 gram/dose powder 17 g PO DAILY PRN (Reason: constipation) Qty: 119 0RF No Action sertraline 50 mg tablet 50 mg PO DAILY Qty: 90 3RF (DME) lancets [FreeStyle Lancets] 28 gauge misc See Rx Instructions .ROUTE .MEDSUPPLY Qty: 120 11RF Rx Instructions: 4 times a day (DME) blood pressure test kit-medium Kit See Rx Instructions miscellaneous .MEDSUPPLY Qty: 1 0RF Rx Instructions: As directed (DME) tray table See Rx Instructions .Route .MEDSUPPLY Qty: 1 0RF Rx Instructions: As directed (DME) bath mat See Rx Instructions .Route .MEDSUPPLY Qty: 1 0RF Rx Instructions: As directed clopidogrel [Plavix] 75 mg tablet 75 mg PO DAILY Qty: 90 3RF (DME) pen needle, diabetic 32 gauge x 1/6 needle See Rx Instructions .ROUTE .MEDSUPPLY Qty: 400 2RF Rx Instructions: 4 times a day atorvastatin 40 mg tablet 40 mg PO BEDTIME 90 Days Qty: 90 3RF aspirin [Adult Aspirin Regimen] 81 mg tablet,delayed release (DR/EC) 81 mg PO DAILY 90 Days Qty: 90 3RF (DME) blood-glucose meter [FreeStyle Edgecomb] Kit See Rx Instructions .ROUTE .MEDSUPPLY Qty: 1 0RF Rx Instructions: As directed enalapril maleate 5 mg tablet 5 mg PO DAILY Qty: 90 3RF metformin 1,000 mg tablet 1,000 mg PO BID 90 Days Qty: 180 1RF (DME) FreeStyle Test Strip See Rx Instructions .ROUTE .MEDSUPPLY Qty: 120 11RF Rx Instructions: 4 times a day pregabalin 75 mg capsule 75 mg PO BEDTIME 30 Days Qty: 30 0RF pantoprazole 40 mg tablet,delayed release (DR/EC) 40 mg PO BID 90 Days Qty: 180 1RF albuterol sulfate 90 mcg/actuation HFA aerosol inhaler 2 puff inhalation Q4-6H PRN (Reason: shortness of breath or wheezing) Qty: 6.7 0RF cholecalciferol (vitamin D3) 50 mcg (2,000 unit) capsule 50 mcg PO DAILY 30 Days Qty: 30 6RF cyanocobalamin (vitamin B-12) 100 mcg tablet 100 mcg PO DAILY 30 Days Qty: 30 6RF insulin aspart U-100 [Novolog FlexPen U-100 Insulin] 100 unit/mL (3 mL) insulin pen 20 unit subcut TID 90 Days Qty: 54 1RF (DME) FreeStyle Jennifer 2 [place] Misc See Rx Instructions .ROUTE .MEDSUPPLY Qty: 1 0RF Rx Instructions: As directed alcohol swabs [Alcohol Prep Pads] Pads, Medicated 1 pad topical .8 times a day 30 Days Qty: 200 6RF alpha lipoic acid 600 mg capsule 600 mg PO DAILY 30 Days Qty: 30 6RF Jardiance 25 mg tablet 25 mg PO DAILY 90 Days Qty: 90 1RF insulin glargine U-300 conc [Toujeo Max U-300 SoloStar] 300 unit/mL (3 mL) insulin pen 72 unit subcut DAILY Qty: 18 3RF pioglitazone [Actos] 15 mg tablet 15 mg PO DAILY Qty: 90 0RF glucose [Dex4 Glucose] 4 gram tablet,chewable 16 g PO Q15M PRN (Reason: hypoglycemia) Qty: 10 1RF Rx Instructions: until symptoms of low blood sugar are controlled memantine 5 mg tablet 5 mg PO BID Referrals: [facility] [Provider Group] Tami King MD [Primary Care Provider] - Interventions: ED Discharge Assessment Last Done: 09/23/24 16:04 Discharge Date/Time: 09/23/24 16:05 Print Language: Tongan
[2024-09-23 11:33] LABS: MANUAL DIFF FLAG NO
[2024-09-23 11:37] LABS: Basophils Absolute Auto 0.1 X10*3/uL (0.0-0.2); Basophils Percent Auto 1.3 % (0-2); Eosinophils Absolute Auto 0.3 X10*3/uL (0.0-0.4); Hematocrit 41.3 % (42.0-52.0); Hemoglobin 13.2 g/dl (14.0-18.0); Imm Gran Abs Auto 0.01 X10*3/uL (0.00-0.03); Imm Gran Pct Auto 0.2 % (0.0-0.4); Lymphocytes Absolute Auto 2.1 X10*3/uL (1.2-4.9); Lymphocytes Percent Auto 32.7 % (20-40); Mean Corpuscular Hemoglobin 25.4 pg (27.0-33.0); Mean Corpuscular Volume 79.4 fL (80.0-98.0); Mean Platelet Volume 9.8 fL (9.4-12.4); Monocytes Absolute Auto 0.5 X10*3/uL (0.1-1.2); Neutrophils Absolute Auto 3.4 x10*3/uL (2.0-8.3); Neutrophils Percent Auto 53.8 % (45-73); Platelet Count 249 X10*3/uL (160-400); Red Cell Distribution Width 15.2 % (11.0-16.0); White Blood Count 6.4 X10*3/uL (4.8-10.8)
[2024-09-23 11:51] LABS: Alanine Aminotransferase 23 U/L (0-40); Alkaline Phosphatase 83 U/L (39-117); Anion Gap 12 (12-20); Aspartate Amino Transferase 19 U/L (5-37); Bilirubin Total 0.2 mg/dL (0.0-1.0); Blood Urea Nitrogen 16 mg/dL (9-16); Calcium 9.7 mg/dL (8.4-10.2); Carbon Dioxide 27 mmol/L (22-29); Chloride 107 mmol/L (96-108); Estimated Glomerular Filt Rate 59; Glucose Random 165 mg/dL (60-115); Magnesium 1.9 mg/dL (1.6-2.6); Potassium 4.9 mmol/L (3.3-5.1); Sodium 141 mmol/L (135-145); Total Protein 7.6 g/dL (6.5-8.0)
[2024-09-23 14:34] VITALS: BP 138/71; PULSE 73; RESP 16; TEMP 36.4; O2SAT 98
[2024-09-23 15:12] LABS: Lipase 24 U/L (8-78)
[2024-09-23 15:31] LABS: Appearance Urine Clear; Color Urine Yellow; Glucose Urine UA >=1000 mg/dL (Negative); Leukocyte Esterase Urine Negative (Negative); Nitrite Urine Negative (Negative); Specific Gravity - Urine 1.025 (1.005-1.025); UMIC TRIGGER UACC YES; Urine Blood Negative (Negative); Urine Ketones Negative (Negative); Urine Protein Negative (Neg-Trace)
[2024-09-23 15:36] LABS: Bacteria Urine None Seen (None Seen); Hyaline Casts Urine 0-2 /LPF (0-2); RBC Urine 0-2 /HPF (0-2); Squamous Epithelial Cell Urine 0-2 /HPF (0-2); WBC Urine 0-5 /HPF (0-5)
[2024-09-23 16:04] VITALS: BP 138/71; PULSE 73; RESP 16; TEMP 36.4; O2SAT 98
== END 2024-09-23 16:05 | disposition home or self-care (01) ==
PROVIDERS: Physician Assistant; Physician Assistant Medical; Emergency Provider Student in an Organized Health Care Education/Training Program; PCP Internal Medicine
DX: K59.00 Constipation, unspecified (principal); R39.15 Urgency of urination; I10 Essential (primary) hypertension; E11.9 Type 2 diabetes mellitus without complications; Z79.4 Long term (current) use of insulin; R10.2 Pelvic and perineal pain; Z87.891 Personal history of nicotine dependence; Z79.899 Other long term (current) drug therapy
CPT/HCPCS: 36415; 51798; 74018; 80053; 81001; 83690; 83735; 85025; 99283; 99284

== ENCOUNTER → 2024-09-23 11:17 | Outpatient (BNV) | payer OTHER, SELFPAY | PROVIDERS: PCP Internal Medicine; Visit Provider Radiology Diagnostic Radiology | DX: K59.00 Constipation, unspecified (principal) | CPT/HCPCS: 74018 ==

== ENCOUNTER 2024-09-28 09:52 | Outpatient (AMB) | payer OTHER, SELFPAY ==
[2024-09-28 10:02] VITALS: BP 102/60; PULSE 87; BMI 28.5
--- NOTE | 2024-09-28 10:02 | A.OFFVIS_ITS ---
Vital Signs 09/28/24 10:02 Height 5 ft 9 in Weight 192 lb 14.472 oz BMI 28.5 BP 102/60 Blood Pressure Location Lt brachial Position Sitting Pulse 87 Pulse Source Pulse Oximeter Intake Visit Reasons: T2DM/CONF Intake Note: Patient present today to follow up on Type 2 Diabetes Mellitus. Last Diabetic Eye exam: 11/2023 Last Podiatry Visit: Does not see a Cloth Washer Back Tender Random Glucose: 218 mg/dl HgA1C: 8.3% 08/19/24 Data Integration Developer Required: Yes Data Integration Developer Language: Manager [employer]: Data Integration Developer Present Data Integration Developer Name: Devin [id number] Information Interpreted: non-clinical & clinical Accompanied by: Spouse Allergies No Known Allergies Allergy (Verified 09/28/24 10:08) HPI Comments Details: Patient is a 69-year-old male with DM type 2 diagnosed 20 years ago who presents for continued management of diabetes. Martiniquais video brick unloader tender used for visit. The patient is accompanied by his . Hemoglobin a1c was 8.3% 08/19/2024 down from 8.8%. 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 Diabetes medications: Toujeo 72 units nightly, NovoLog 20 units before meals, Metformin 1000mg bid, Jardiance 25 mg daily, Actos 15 mg. Januvia stopped and Actos started at his visit a month ago with me. Had cellulitis with Freestyle evert pro. Reported diarrhea with Trulicity. Compliance: Denies noncompliance. Reviewed CGM GMI 8.8% 69% standard deviation Very high 35% down from 41% High 38% down from 41% 27% in range up from 18% 0% low Less than 1% very low He had a pattern of daytime hyperglycemia particularly in the early afternoon. Patient had a low blood sugar event of 54 that occurred at 10:30am on September 14. Treated with OJ and food. Denies other episodes of Hypoglycemia. ROS: Constitutional: No fevers or chills. Eyes: No vision changes Respiratory: No shortness of breath Cardiovascular: No chest pain Neurologic: No headache, dizziness, syncope Physical exam: Constitutional: Alert, in no distress. Eyes: Pupils are equal, round and reactive to light. Extraocular muscles intact. Neck: Supple, Full range of motion. No lymphadenopathy. No palpable thyroid masses. Respiratory: Clear to auscultation. Cardiovascular: S1 S2 regular. No murmurs. Neurologic: No focal neurological deficits. 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 Right carotid artery occlusion B12 deficiency Hypertension Dyslipidemia Diabetic nephropathy associated with type 2 diabetes mellitus Proliferative diabetic retinopathy associated with type 2 diabetes mellitus Vitamin D deficiency Neuropathy Diabetes mellitus Surgical History No pertinent past surgical history Family History Father Heart disease Mother HTN (hypertension) Social History Household Members: Spouse Housing: Apartment Alcohol intake: former Patient Tobacco Use Status: Former Tobacco user Tobacco use type: Cigarette e-Cigarette/Vaping Use: Never Used Second Hand Smoke Exposure: No Advance Directives Date on File: 08/19/24 service: No Current occupational status: disabled Cognitive needs: No Hearing needs: No Vision needs: Yes Physical Exam Vital Signs: Last Vital Signs Pulse 87 09/28/24 10:02 BP 102/60 09/28/24 10:02 BMI result Body Mass Index 28.5 Results Reviewed Results Reviewed: Laboratory Tests 01/28/24 06/01/24 08/07/24 08:03 08:29 08:00 Creatinine 1.08 Estimated GFR > 60 Hgb A1c (Clinic) 10.3 H 8.8 H Triglycerides 152 H Cholesterol 119 LDL Cholesterol, Calc 61 HDL Cholesterol 28 L Urine Creatinine 101.14 Urine Microalbumin 40.0 Microalb/Creat Ratio 39.5 H 08/19/24 09:17 Creatinine Estimated GFR Hgb A1c (Clinic) 8.3 H Triglycerides Cholesterol LDL Cholesterol, Calc HDL Cholesterol Urine Creatinine Urine Microalbumin Microalb/Creat Ratio Assessment & Plan Assessment & Plan (1) Type 2 diabetes mellitus with diabetic polyneuropathy: Code(s): E11.42 - Type 2 diabetes mellitus with diabetic polyneuropathy Category: Medical Qualifiers: Diabetes mellitus longwall machine operator helper insulin use: with longwall machine operator helper use Qualified Code(s): E11.42 - Type 2 diabetes mellitus with diabetic polyneuropathy; Z79.4 - [facility] (current) use of insulin Plan: In summary this is a 69-year-old male with type 2 diabetes with known micro and macrovascular complications with sub optimal but improving glycemic control. Continue Toujeo 72 units nightly. Patient had more frequent hypoglycemia when he increase to 75 units. Continue NovoLog 20 units before meals. If he has continued episodes of post prandial hypoglycemia he will decrease it to 17 units before meals. Continue Jardiance 25 mg daily. Continue metformin 1000 mg twice daily. Increase Actos to 30 mg daily. Lifestyle modifications reviewed with the patient. He sees the looping inspector. He declines referral to the distribution clerk at this time. Reviewed proper treatment of hypoglycemia. He has glucose tablets. Follow up 11/23/2023 for type 2 diabetes. Medications: New pioglitazone (Actos) Replaces pioglitazone 15 mg. 30 mg PO DAILY 90 tabs 0RF Discontinued pioglitazone (Actos) Discontinued Reason: Doctor's Order 15 mg PO DAILY 90 tabs 0RF Coding Level of Care Code Est Pt Level 4 (30343) Complex EM visit Add On G2211 Diagnoses Type 2 diabetes mellitus with diabetic polyneuropathy, with long-term current use of insulin E11.42; Z79.4 Diabetes mellitus longwall machine operator helper insulin use: with [facility] use
[2024-09-28 10:14] LABS: Glucose, Whole Blood 218 mg/dL (60-115)
== END 2024-09-28 10:29 | disposition home or self-care (01) ==
PROVIDERS: PCP Internal Medicine; Visit Provider Physician Assistant Medical
DX: E11.42 Type 2 diabetes mellitus with diabetic polyneuropathy (principal); Z79.4 Long term (current) use of insulin

== ENCOUNTER → 2024-09-28 09:52 | Outpatient (BNVA) | payer OTHER, SELFPAY | PROVIDERS: PCP Internal Medicine; Visit Provider Physician Assistant Medical | DX: E11.42 Type 2 diabetes mellitus with diabetic polyneuropathy (principal); Z79.4 Long term (current) use of insulin | CPT/HCPCS: 82947; 99212 ==

== ENCOUNTER 2024-11-18 10:04 | Outpatient (AMB) | payer OTHER, SELFPAY ==
--- NOTE | 2024-11-18 10:07 | A.OFFPC_ITS ---
Vital Signs 11/18/24 10:09 Height 5 ft 9 in Weight 190 lb 8 oz BMI 28.1 BP 130/74 Blood Pressure Location Rt brachial Position Sitting Pulse 84 Pulse Source Pulse Oximeter Temp 96.9 F Temp Source Skin Pulse Oximetry (%) 96 Oxygen Delivery Method Room Air Intake Visit Reasons: [facility] 09/23 Intestinal issues Intake Note: Patient is here to follow-up after a visit the emergency department at [facility] on 09/23/24 Process Design Engineer Required: Yes Process Design Engineer Language: Glass Robot Operator Name: Severo [id number] Information Interpreted: non-clinical & clinical Aluminum Siding Applicator: Present Allergies No Known Allergies Allergy (Verified 11/23/24 05:53) Medication List - Last Reconciled 11/23/24 by Chema Monsivais MD albuterol sulfate 90 mcg/actuation 2 puffs inhalation Q4-6H PRN alcohol swabs (Alcohol Prep Pads) 1 pad topical .8 times a day 30 days alpha lipoic acid 600 mg PO DAILY 30 days aspirin (Adult Aspirin Regimen) 81 mg PO DAILY 90 days atorvastatin 40 mg PO BEDTIME 90 days [bath mat As directed] blood pressure test kit-medium As directed blood sugar diagnostic (FreeStyle Test strips) 4 times a day blood-glucose meter (FreeStyle [place] kit) As directed cholecalciferol (vitamin D3) 50 mcg PO DAILY 30 days clopidogrel (Plavix) 75 mg PO DAILY cyanocobalamin (vitamin B-12) 100 mcg PO DAILY 30 days empagliflozin (Jardiance) 25 mg PO DAILY 90 days enalapril maleate 5 mg PO DAILY flash glucose scanning reader (FreeStyle Jennifer 2 [place]) As directed glucose (Dex4 Glucose) 16 grams (4 x 4 gram) PO Q15M PRN insulin aspart U-100 (Novolog FlexPen U-100 Insulin aspart) 20 units (0.2 mL) subcut TID 90 days insulin glargine U-300 conc (Toujeo Max U-300 SoloStar) 72 units (0.24 mL) subcut DAILY lancets (FreeStyle Lancets) 4 times a day memantine 5 mg PO BID metformin 1,000 mg PO BID 90 days pantoprazole 40 mg PO BID 90 days pen needle, diabetic 4 times a day pioglitazone (Actos) 30 mg PO DAILY polyethylene glycol 3350 (Miralax) 17 grams PO DAILY PRN pregabalin 75 mg PO BEDTIME 30 days sertraline 50 mg PO DAILY [tray table As directed] Tobacco use date assessed: 11/18/24 Fall risk assessment: No Falls in past year Last assessed Fall Risk: 11/18/24 Dental Screening Dental Screen Date: 11/18/24 Did you have a dental visit in the last 12 months?: No Did you have a dental problem in the last 6 months where you did not have access to dental care?: No Was dental information given to patient?: No (no teeth) [facility] 09/23 Intestinal issues HPI Details 69-year-old male presents to the office for a post hospital discharge. Patient was seen at the [facility] emergency room with complaints of tenesmus. He goes to the bathroom frequently thinking he has to evacuate feces and nothing comes out. There is no blood or mucus in the stool. X-rays done in the emergency room showed moderate amount of stool. Blood work was unremarkable. Patient also mentions that recently a few diabetic medications were started. Since the hospital visit, his symptoms have reduced in frequency but continue to be present. 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 Right carotid artery occlusion B12 deficiency Hypertension Dyslipidemia Diabetic nephropathy associated with type 2 diabetes mellitus Proliferative diabetic retinopathy associated with type 2 diabetes mellitus Vitamin D deficiency Neuropathy Diabetes mellitus Surgical History No pertinent past surgical history Family History Father Heart disease Mother HTN (hypertension) Social History Household Members: Spouse Housing: Apartment Alcohol intake: former Patient Tobacco Use Status: Former Tobacco user Tobacco use type: Cigarette e-Cigarette/Vaping Use: Never Used Second Hand Smoke Exposure: Yes Advance Directives Date on File: 08/19/24 service: No Current occupational status: disabled Cognitive needs: No Hearing needs: No Vision needs: Yes (Glasses) Questionnaire PHQ-9 Over the last 2 weeks, how often have you been bothered by any of the following problems? 1. Little interest or pleasure in doing things: not at all 2. Feeling down, depressed, or hopeless: not at all 3. Trouble falling or staying asleep, or sleeping too much: not at all 4. Feeling tired or having little energy: not at all 5. Poor appetite or overeating: not at all 6. Feeling bad about yourself - or that you are a failure or have let yourself or your family down: not at all 7. Trouble concentrating on things, such as reading the newspaper or watching television: not at all 8. Moving or speaking so slowly that other people could have noticed. Or the opposite - being so fidgety or restless that you have been moving around a lot more than usual: not at all 9. Thoughts that you would be better off or of hurting yourself in some way: not at all Total score: 0 Depression Screening Interpretation: Negative Depression Screening Done: Yes Source: Developed by Drs. Brad Espinal, Julia Guzman, Torsten Lindsey and colleagues, with an educational greg from [email or web address]. Thrive Questionnaire Date Thrive assessed: 11/18/24 I am a: Patient What is your living situation today?: I have a steady place to live Within the past 12 months, did the food you bought not last and you didn't have the money to get more?: Never true Within the past 12 months, did you worry whether your food would run out before you got money to buy more?: Never true Do you have trouble paying for medicines?: No Do you have trouble getting transportation to medical appointments?: No Do you have trouble paying your heating and electricity bill?: No Do you have trouble taking care of your child, family member or friend?: No Do you have trouble with day-to-day activities such as bathing, preparing meals, shopping, managing finances, etc.?: No Are you currently unemployed and looking for a job?: No Are you interested in more education?: No Please select the resources that you would like help with: None Currently or been in a relationship where the following occur: No concerns reported THRIVE Score: 0 AUDIT C Alcohol Use Questionnaire (AUDIT-C) 1. How often do you have a drink containing alcohol?: Never Total Score: 0 LESA-7 AMB Questionnaire LESA-7 Date LESA - 7 assessed: 11/18/24 Feeling nervous, anxious, or on edge: 0 = Not at all Not being able to stop or control worryin = Not at all Worrying too much about different things: 0 = Not at all Trouble relaxin = Not at all Being so restless that it is hard to sit still: 0 = Not at all Becoming easily annoyed or irritable: 0 = Not at all Feeling afraid as if something awful might happen: 0 = Not at all Total LESA-7 score (0-4 normal; 5-9 mild; 10-14 moderate; 15-21 severe): 0 Source: Developed by Drs. Brad Espinal, Julia Guzman, Torsten Lindsey and colleagues, with an educational greg from [email or web address]. Physical exam (Primary Care) Vital Signs: Last Vital Signs Temp 96.9 F 11/18/24 10:09 Pulse 84 11/18/24 10:09 BP 130/74 11/18/24 10:09 Pulse Ox 96 11/18/24 10:09 Oxygen Delivery Method Room Air 11/18/24 10:09 BMI result Body Mass Index 28.1 Tobacco/Smoking Status: Tobacco use Status Tobacco use date assessed 11/18/24 11/18/24 10:17 Patient Tobacco Use Status Former Tobacco user 11/18/24 10:17 Tobacco use type Cigarette 11/18/24 10:17 e-Cigarette/Vaping Use Never Used 11/18/24 10:17 PHQ-9: PHQ-9 Score PHQ-9: Total score 0 11/18/24 10:17 Depression Screening Interpretation: Negative Thrive Assessment: Date of Thrive Assessment Date Thrive assessed 11/18/24 11/18/24 10:17 Currently or been in a relationship where the following occur: No concerns reported Const General: cooperative and healthy appearing Nutritional Appearance: well nourished Orientation/consciousness: patient oriented x3 Limitations: no limitations HENMT Head: Yes normal to inspection Eyes General: appearance normal, both eyes and all related structures Neck Neck: Yes normal visual inspection Chest Chest palpation & inspection: normal palpation of entire chest wall Resp Effort & Inspection: normal respiratory effort Neuro General: patient oriented x3 Coding Level of Care Code Est Pt Level 4 (26369) Complex EM visit Add On G2211 Diagnoses Constipation K59.00 Assessment & Plan Assessment & Plan (1) Constipation: Code(s): K59.00 - Constipation, unspecified Category: Medical Plan: Patient's physical exam is unremarkable. Lab work done in the emergency room reviewed. X-rays done in the emergency room reviewed. Patient is a longstanding diabetic and symptoms could be attributed to slowing of the GI tract due to autonomic neuropathy. Advised to use stool softeners. Patient requested a GI appointment which was made for him.
[2024-11-18 10:09] VITALS: BP 130/74; PULSE 84; TEMP 36.1; O2SAT 96; BMI 28.1
== END 2024-11-18 10:57 | disposition home or self-care (01) ==
PROVIDERS: PCP Internal Medicine; Visit Provider Internal Medicine
DX: K59.00 Constipation, unspecified (principal)

== ENCOUNTER → 2024-11-18 10:04 | Outpatient (BNVA) | payer OTHER, SELFPAY | PROVIDERS: PCP Internal Medicine; Visit Provider Internal Medicine | DX: K59.00 Constipation, unspecified (principal) | CPT/HCPCS: 96127; 99212 ==

== ENCOUNTER 2024-11-23 09:34 | Outpatient (AMB) | payer OTHER, SELFPAY ==
--- NOTE | 2024-11-23 09:41 | A.OFFVIS_ITS ---
Vital Signs 11/23/24 09:58 Height 5 ft 9 in Weight 194 lb 14.218 oz BMI 28.8 BP 124/58 L Blood Pressure Location Lt brachial Position Sitting Pulse 86 Pulse Source Pulse Oximeter Pulse Oximetry (%) 96 Oxygen Delivery Method Room Air Intake Visit Reasons: T2DM Intake Note: Patient present today to follow up on Type 2 Diabetes Mellitus. Last Diabetic Eye exam: Jun 2024 Last Podiatry Visit: Does not see a Community Services Officer Random Glucose: 127 mg/dl HgA1C: 8.7% 11/23/2024 Amusement Park Ride Mechanic Required: Yes Amusement Park Ride Mechanic Language: Cow Tester Services: Amusement Park Ride Mechanic Present Amusement Park Ride Mechanic Name: [id number] Information Interpreted: non-clinical & clinical Accompanied by: Spouse Allergies No Known Allergies Allergy (Verified 11/23/24 09:59) Medication List - Last Reconciled 11/23/24 by DUC Barrera albuterol sulfate 90 mcg/actuation 2 puffs inhalation Q4-6H PRN alcohol swabs (Alcohol Prep Pads) 1 pad topical .8 times a day 30 days alpha lipoic acid 600 mg PO DAILY 30 days aspirin (Adult Aspirin Regimen) 81 mg PO DAILY 90 days atorvastatin 40 mg PO BEDTIME 90 days [bath mat As directed] blood pressure test kit-medium As directed blood sugar diagnostic (FreeStyle Test strips) 4 times a day blood-glucose meter (FreeStyle [place] kit) As directed cholecalciferol (vitamin D3) 50 mcg PO DAILY 30 days clopidogrel (Plavix) 75 mg PO DAILY cyanocobalamin (vitamin B-12) 100 mcg PO DAILY 30 days empagliflozin (Jardiance) 25 mg PO DAILY 90 days enalapril maleate 5 mg PO DAILY flash glucose scanning reader ([employer] Jennifer 2 [place]) As directed glucose (Dex4 Glucose) 16 grams (4 x 4 gram) PO Q15M PRN insulin aspart U-100 (Novolog FlexPen U-100 Insulin aspart) 20 units (0.2 mL) subcut TID 90 days insulin glargine U-300 conc (Toujeo Max U-300 SoloStar) 72 units (0.24 mL) subcut DAILY lancets (FreeStyle Lancets) 4 times a day memantine 5 mg PO BID metformin 1,000 mg PO BID 90 days pantoprazole 40 mg PO BID 90 days pen needle, diabetic 4 times a day pioglitazone (Actos) 45 mg PO DAILY polyethylene glycol 3350 (Miralax) 17 grams PO DAILY PRN pregabalin 75 mg PO BEDTIME 30 days sertraline 50 mg PO DAILY [tray table As directed] HPI Comments Details: Patient is a 69-year-old male with DM type 2 diagnosed 20 years ago who presents for continued management of diabetes. [place] video procurement services manager used for visit. The patient is accompanied by his . Hemoglobin a1c is 8.7% today up from 8.3% 08/19/2024, however CGM data shows improvement. 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 Diabetes medications: Toujeo 72 units nightly, NovoLog 18 units before meals, Metformin 1000mg bid, Jardiance 25 mg daily, Actos 30 mg. Januvia stopped when patient was switched to Actos. Had cellulitis with [employer] jennifer pro. Reported diarrhea with Trulicity. Compliance: Noncompliance with diabetic diet Reviewed Dexcom download G CA 7.7% Average glucose 184 Variability 27.2% Very high 10% down from 35% High 42% up from 38% In range 48% up from 27% 0% hypoglycemia. He had a pattern of nighttime and daytime highs, ROS: Constitutional: No fevers or chills. Denies weight gain. Eyes: No vision changes Respiratory: No shortness of breath Cardiovascular: No chest pain. Denies leg swelling. Neurologic: No headache, dizziness, syncope Physical exam: Constitutional: Alert, in no distress. Neck: Supple, Full range of motion. No lymphadenopathy. Respiratory: Clear to auscultation. Cardiovascular: S1 S2 regular. No murmurs. Right foot: Warm and well perfused. No clubbing, cyanosis or edema. DP pulse intact. Absent vibratory sensation. Absent sensation to monofilament in the toe s. No open wounds. Left foot: Warm and well perfused. No clubbing, cyanosis or edema. DP pulse intact. Absent vibratory sensation. Absent sensation to monofilament in the great toe. No open wounds. 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 Right carotid artery occlusion B12 deficiency Hypertension Dyslipidemia Diabetic nephropathy associated with type 2 diabetes mellitus Proliferative diabetic retinopathy associated with type 2 diabetes mellitus Vitamin D deficiency Neuropathy Diabetes mellitus Surgical History No pertinent past surgical history Family History Father Heart disease Mother HTN (hypertension) Social History Household Members: Spouse Housing: Apartment Alcohol intake: former Patient Tobacco Use Status: Former Tobacco user Tobacco use type: Cigarette e-Cigarette/Vaping Use: Never Used Second Hand Smoke Exposure: Yes Advance Directives Date on File: 08/19/24 service: No Current occupational status: disabled Cognitive needs: No Hearing needs: No Vision needs: Yes (Glasses) Physical Exam Vital Signs: Last Vital Signs Pulse 86 11/23/24 09:58 BP 124/58 L 11/23/24 09:58 Pulse Ox 96 11/23/24 09:58 Oxygen Delivery Method Room Air 11/23/24 09:58 BMI result Body Mass Index 28.8 Office Procedures Glucose Monitoring Details Details: See HPI 76763 - Glucose monitoring, continuous-physician I&R Procedure code (CPT) selection complete Results AMB Hemoglobin A1c AMB Hemoglobin A1c 8.7 % Last Edit by OLGA LIDIA Black on 11/23/24 10:16 Results Reviewed Results Reviewed: Laboratory Last Values Glucose (Clinic) 127 mg/dL (60-115) H 11/23/24 10:06 Hgb A1c (Clinic) 8.7 % (4.0-6.0) H 11/23/24 10:09 Laboratory Tests 01/28/24 06/01/24 08/07/24 08:03 08:29 08:00 Creatinine 1.08 Estimated GFR > 60 Hgb A1c (Clinic) 10.3 H 8.8 H Triglycerides 152 H Cholesterol 119 LDL Cholesterol, Calc 61 HDL Cholesterol 28 L Urine Creatinine 101.14 Urine Microalbumin 40.0 Microalb/Creat Ratio 39.5 H 08/19/24 09:17 Creatinine Estimated GFR Hgb A1c (Clinic) 8.3 H Triglycerides Cholesterol LDL Cholesterol, Calc HDL Cholesterol Urine Creatinine Urine Microalbumin Microalb/Creat Ratio Assessment & Plan Assessment & Plan (1) Type 2 diabetes mellitus with diabetic polyneuropathy: Code(s): E11.42 - Type 2 diabetes mellitus with diabetic polyneuropathy Category: Medical Qualifiers: Diabetes mellitus intermediate insulin use: with parts counterman use Qualified Code(s): E11.42 - Type 2 diabetes mellitus with diabetic polyneuropathy; Z79.4 - watermaster (current) use of insulin Plan: In summary this is a 69-year-old male with type 2 diabetes with known micro and macrovascular complications with sub optimal but improving glycemic control. Continue Toujeo 72 units nightly. Patient had more frequent hypoglycemia when he increase to 75 units. Continue NovoLog 18 units before meals. Continue Jardiance 25 mg daily. Continue metformin 1000 mg twice daily. Increase Actos to 45 mg daily. Lifestyle modifications reviewed with the patient. He sees the hematology nurse educator. He declines referral to the data coordinator at this time. Reviewed proper treatment of hypoglycemia. He has glucose tablets. Follow up in 6 weeks for type 2 diabetes. Orders: Orders AMB Hemoglobin A1c Today E11.42 - Type 2 diabetes mellitus with diabetic polyneuropathy, Z79.4 - halfway (current) use of insulin AMB Glucose Monitoring Today E11.9 - Type 2 diabetes mellitus without complications Medications: New pioglitazone (Actos) Replaces pioglitazone (Actos) 30 mg daily. 45 mg PO DAILY 90 tabs 1RF Discontinued pioglitazone (Actos) Replaces pioglitazone 15 mg. Discontinued Reason: Doctor's Order 30 mg PO DAILY 90 tabs 0RF Coding Level of Care Code Est Pt Level 4 (81936) Diagnoses Type 2 diabetes mellitus with diabetic polyneuropathy, with long-term current use of insulin E11.42; Z79.4 Diabetes mellitus parts counterman insulin use: with parts counterman use CPT Codes Details - CPT: 63863 - Glucose monitoring, continuous-physician I&R ([id number])
[2024-11-23 09:58] VITALS: BP 124/58; PULSE 86; O2SAT 96; BMI 28.8
[2024-11-23 10:10] LABS: Glucose, Whole Blood 127 mg/dL (60-115)
== END 2024-11-23 10:43 | disposition home or self-care (01) ==
PROVIDERS: PCP Internal Medicine; Visit Provider Physician Assistant Medical
DX: E11.42 Type 2 diabetes mellitus with diabetic polyneuropathy (principal); Z79.4 Long term (current) use of insulin

== ENCOUNTER → 2024-11-23 09:34 | Outpatient (BNVA) | payer OTHER, SELFPAY | PROVIDERS: PCP Internal Medicine; Visit Provider Physician Assistant Medical | DX: E11.42 Type 2 diabetes mellitus with diabetic polyneuropathy (principal); Z79.4 Long term (current) use of insulin | CPT/HCPCS: 82947; 83036; 99212 ==

== ENCOUNTER → 2024-12-22 11:01 | Outpatient (BNV) | payer OTHER, SELFPAY | PROVIDERS: PCP Internal Medicine; Visit Provider Internal Medicine Cardiovascular Disease | DX: R94.31 Abnormal electrocardiogram [ECG] [EKG] (principal); Z01.810 Encounter for preprocedural cardiovascular examination | CPT/HCPCS: 93010 ==

== ENCOUNTER 2025-01-04 10:15 | Outpatient (AMB) | payer OTHER, SELFPAY ==
--- NOTE | 2025-01-04 10:17 | A.OFFVIS_ITS ---
Vital Signs 01/04/25 10:20 Height 5 ft 9 in Weight 192 lb 3.889 oz BMI 28.4 BP 102/60 Blood Pressure Location Lt brachial Position Sitting Pulse 70 Pulse Source Pulse Oximeter Pulse Oximetry (%) 97 Oxygen Delivery Method Room Air Intake Visit Reasons: T2DM Intake Note: Patient present today to follow up on Type 2 Diabetes Mellitus. Last Diabetic Eye exam: Jun 2024 Last Podiatry Visit: Does not see a Party Director Random Glucose: 198 mg/dl HgA1C: 8.7% 11/23/2024 State Manager Required: Yes State Manager Language: Top Lift Nailer Services: State Manager Present State Manager Name: Avinash [id number] Information Interpreted: non-clinical & clinical Accompanied by: Spouse Allergies No Known Allergies Allergy (Verified 01/04/25 10:21) Medication List - Last Reconciled 01/04/25 by DUC Barrera alcohol swabs (Alcohol Prep Pads) 1 pad topical .8 times a day 30 days alpha lipoic acid 600 mg PO BEDTIME aspirin (Adult Aspirin Regimen) 81 mg PO DAILY 90 days atorvastatin 40 mg PO BEDTIME 90 days [bath mat As directed] blood pressure test kit-medium As directed blood sugar diagnostic (FreeStyle Test strips) 4 times a day blood-glucose meter (FreeStyle Carlton kit) As directed cholecalciferol (vitamin D3) 50 mcg PO DAILY 30 days clopidogrel (Plavix) 75 mg PO DAILY cyanocobalamin (vitamin B-12) 100 mcg PO DAILY 30 days empagliflozin (Jardiance) 25 mg PO DAILY 90 days enalapril maleate 5 mg PO DAILY flash glucose scanning reader (DropifiStyle Jennifer 2 [place]) As directed gabapentin 300 mg PO BEDTIME glucose (Dex4 Glucose) 16 grams (4 x 4 gram) PO Q15M PRN insulin aspart U-100 (Novolog FlexPen U-100 Insulin aspart) 18 - 22 units subcut TID insulin glargine U-300 conc (Toujeo Max U-300 SoloStar) 70 units subcut BEDTIME lancets (FreeStyle Lancets) 4 times a day memantine 5 mg PO BID metformin 1,000 mg PO BID 90 days pantoprazole 40 mg PO BID 90 days pen needle, diabetic 4 times a day pioglitazone (Actos) 45 mg PO DAILY pregabalin 75 mg PO BEDTIME 30 days sertraline 50 mg PO BEDTIME [tray table As directed] HPI Comments Details: Patient is a 69-year-old male with DM type 2 diagnosed 20 years ago who presents for continued management of diabetes. [place]ian video railroad construction director used for visit. The patient is accompanied by his . Hemoglobin a1c is 8.7% 11/23/2024. 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 Diabetes medications: Toujeo 72 units nightly, NovoLog 18 units before meals, Metformin 1000mg bid, Jardiance 25 mg daily, Actos 45 mg. Januvia stopped when patient was switched to Actos. Had cellulitis with Freestyle jennifer. Reported diarrhea with Trulicity. Compliance: Noncompliance with diabetic diet Reviewed Dexcom data G [place] 7.6% Coefficient of variation 33.2% Average glucose 178 10% very high 38% high 51% in range 1% low 0% very low. Patient has postprandial hyperglycemia in the morning and late evening and overnight. He has occasional hypoglycemia overnight and afternoon treated with orange juice. ROS: Constitutional: No fevers or chills. Denies weight gain. Eyes: No vision changes Respiratory: No shortness of breath Cardiovascular: No chest pain. Denies leg swelling. Neurologic: No headache, dizziness, syncope Physical exam: Constitutional: Alert, in no distress. Neck: Supple, Full range of motion. No lymphadenopathy. Respiratory: Clear to auscultation. Cardiovascular: S1 S2 regular. No murmurs. 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 Right carotid artery occlusion B12 deficiency Hypertension Dyslipidemia Diabetic nephropathy associated with type 2 diabetes mellitus Proliferative diabetic retinopathy associated with type 2 diabetes mellitus Vitamin D deficiency Neuropathy Diabetes mellitus Surgical History H/O colonoscopy No pertinent past surgical history Family History Father Heart disease Mother HTN (hypertension) Social History Household Members: Spouse Housing: Apartment Are you a primary home care liaison to a significant other at home: No Do you presently have visiting nurse or other home services: Yes (FABRICATION OPERATOR and RN) Alcohol intake: former Patient Tobacco Use Status: Former Tobacco user Tobacco use type: Cigarette e-Cigarette/Vaping Use: Never Used Second Hand Smoke Exposure: Yes Advance Directives Date on File: 08/19/24 service: No Current occupational status: disabled Cognitive needs: No Hearing needs: No Vision needs: Yes (Glasses) Physical Exam Vital Signs: Last Vital Signs Pulse 70 01/04/25 10:20 BP 102/60 01/04/25 10:20 Pulse Ox 97 01/04/25 10:20 Oxygen Delivery Method Room Air 01/04/25 10:20 BMI result Body Mass Index 28.4 Office Procedures Glucose Monitoring Details Details: see hpi [id number] - Glucose monitoring, continuous-physician I&R Procedure code (CPT) selection complete Results Reviewed Results Reviewed: Laboratory Tests 01/28/24 06/01/24 08/07/24 08:03 08:29 08:00 Creatinine 1.08 Estimated GFR > 60 Hgb A1c (Clinic) 10.3 H 8.8 H Triglycerides 152 H Cholesterol 119 LDL Cholesterol, Calc 61 HDL Cholesterol 28 L Urine Creatinine 101.14 Urine Microalbumin 40.0 Microalb/Creat Ratio 39.5 H 08/19/24 09:17 Creatinine Estimated GFR Hgb A1c (Clinic) 8.3 H Triglycerides Cholesterol LDL Cholesterol, Calc HDL Cholesterol Urine Creatinine Urine Microalbumin Microalb/Creat Ratio Assessment & Plan Assessment & Plan (1) Type 2 diabetes mellitus with diabetic polyneuropathy: Code(s): E11.42 - Type 2 diabetes mellitus with diabetic polyneuropathy Category: Medical Qualifiers: Diabetes mellitus senior care insulin use: with senior care use Qualified Code(s): E11.42 - Type 2 diabetes mellitus with diabetic polyneuropathy; Z79.4 - care home (current) use of insulin Plan: In summary this is a 69-year-old male with type 2 diabetes with known micro and macrovascular complications with sub optimal but improving glycemic control. Decrease Toujeo to 70 units nightly. Take NovoLog 20-22 units before breakfast (22 if you are having a banana or more fruits), 18 units before lunch and 20 units before dinner. Continue Jardiance 25 mg daily. Continue metformin 1000 mg twice daily. Continue Actos to 45 mg daily. Lifestyle modifications reviewed with the patient. He sees the special agent in charge. He declines referral to the barley steeper at this time. Reviewed proper treatment of hypoglycemia. He has glucose tablets. Follow up in February for Type II diabetes. Reminded to have labs done. Orders: Orders Platelet Count Today E11.42 - Type 2 diabetes mellitus with diabetic polyneuropathy, Z79.4 - care home (current) use of insulin AMB Glucose Monitoring Today E11.9 - Type 2 diabetes mellitus without complications Patient Instructions: Decrease Toujeo 70 units nightly. Take NovoLog 20-22 units before breakfast (22 if you are having a banana or more fruits), 18 units before lunch and 20 units before dinner. Continue Jardiance 25 mg daily. Continue metformin 1000 mg twice daily. Continue Actos to 45 mg daily. Disminuir toujeo Toujeo a 70 unidades cada noche. [place] NovoLog 20-22 unidades antes del desayuno ([address]?derrick o m?s frutas), 18 unidades antes del almuerzo y 20 unidades antes de la cisco certified network associate. Contin?e con Jardiance 25 mg al d?a. Contin?e con metformina 1000 mg dos veces al d?a. Contin?e con Actos hasta 45 mg al d?a. Coding Level of Care Code Est Pt Level 4 (28985) Diagnoses Type 2 diabetes mellitus with diabetic polyneuropathy, with long-term current use of insulin E11.42; Z79.4 Diabetes mellitus senior care insulin use: with superintendent terminal use CPT Codes Details - CPT: 12584 - Glucose monitoring, continuous-physician I&R ([id number])
[2025-01-04 10:20] VITALS: BP 102/60; PULSE 70; O2SAT 97; BMI 28.4
[2025-01-04 10:32] LABS: Glucose, Whole Blood 198 mg/dL (60-115)
== END 2025-01-04 11:05 | disposition home or self-care (01) ==
LOC: HO.ENCR 10:16
PROVIDERS: PCP Internal Medicine; Visit Provider Physician Assistant Medical
DX: E11.42 Type 2 diabetes mellitus with diabetic polyneuropathy (principal); Z79.4 Long term (current) use of insulin

== ENCOUNTER → 2025-01-04 10:15 | Outpatient (BNVA) | payer OTHER, SELFPAY | PROVIDERS: PCP Internal Medicine; Visit Provider Physician Assistant Medical | DX: E11.42 Type 2 diabetes mellitus with diabetic polyneuropathy (principal); Z79.4 Long term (current) use of insulin; Z79.84 Long term (current) use of oral hypoglycemic drugs; Z79.899 Other long term (current) drug therapy | CPT/HCPCS: 82947; 99212 ==

== ENCOUNTER 2025-01-05 06:06 | Day surgery (SDC) | payer OTHER, SELFPAY ==
--- NOTE | 2024-12-22 | ECG_ITS ---
Test Reason : PREOP Blood Pressure : */* mmHG Vent. Rate : 78 BPM Atrial Rate : 78 BPM P-R Int : 160 ms QRS Dur : 96 ms QT Int : 358 ms P-R-T Axes : 52 20 32 degrees QTcB Int : 408 ms Normal sinus rhythm Possible Inferior infarct (cited on or before 05-Dec-2021) Abnormal ECG When compared with ECG of 05-Dec-2021 12:34, No significant change was found Referred By: Alla Christianson Electronically Signed By: RESHMA HARPER MD
[2024-12-22 10:31] VITALS: BP 109/58; PULSE 97; RESP 16; O2SAT 97; BMI 29.3
--- NOTE | 2024-12-22 10:48 | P.CONAN_ITS ---
Documented by User: Alla Christianson NP 01/04/25 09:20 HPI - Anesthesia Eval Consult details Narrative: 69yo M for Repair Hernia Umbilical Reducible with mesh, 01/05/25 DM: A1C = 8.7 Carotid ds: Follows with [facility] [place] [facility]. Last office visit 12/2023. Plavix and OK'd to hold 5 days preop Anesthesia Pre-Procedure Meds Is the patient on any of the following meds?: SGLT2 Inhib PMFSH Active Problems Active Problems: All Active Problems Umbilical hernia (Acute) Right leg pain (Acute) Left leg pain (Acute) Persistent cough (Acute) Obesity (BMI 35.0-39.9 without comorbidity) (Acute) Dizziness (Acute) CVA (cerebral vascular accident) (Acute) Anxiety (Acute) High cholesterol (Acute) GERD (gastroesophageal reflux disease) (Acute) Abdominal bloating (Acute) Constipation (Acute) Bilateral carotid artery stenosis (Acute) Physical exam (Acute) Type 2 diabetes mellitus with diabetic polyneuropathy (Acute) Mild recurrent major depression (Acute) Right carotid artery occlusion (Acute) B12 deficiency (Acute) Hypertension (Acute) Dyslipidemia (Acute) Proliferative diabetic retinopathy associated with type 2 diabetes mellitus (Acute) Vitamin D deficiency (Acute) Neuropathy (Acute) Diabetes mellitus (Acute) Past Medical History Medical History Difficulty swallowing Dementia Physical exam 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 Right carotid artery occlusion B12 deficiency Hypertension Dyslipidemia Diabetic nephropathy associated with type 2 diabetes mellitus Proliferative diabetic retinopathy associated with type 2 diabetes mellitus Vitamin D deficiency Neuropathy Diabetes mellitus Family History Family History Father Heart disease Mother HTN (hypertension) Family history of problems with anesthesia: No Surgical History Surgical History H/O colonoscopy No pertinent past surgical history History of Problems with Anesthesia: No Social History Social History Household Members: Spouse Housing: Apartment Are you a primary behavioral health care manager to a significant other at home: No Do you presently have visiting nurse or other home services: No Alcohol intake: former Patient Tobacco Use Status: Former Tobacco user Tobacco use type: Cigarette e-Cigarette/Vaping Use: Never Used Second Hand Smoke Exposure: Yes Use of substances other than those prescribed or required for medical reasons: No Have you been hit, kicked, punched, or otherwise hurt by someone within the past year? If so, by whom?: No Are you DNR?: No Advance Directives: Yes Advance Directives Information Provided: No Advance Directives on File: Yes Advance Directives Date on File: 08/19/24 Recently lost weight without trying: No Eating poorly because of decreased appetite: No Nutrition Risks: No Nutritional Risk service: No Current occupational status: disabled Cognitive needs: No Hearing needs: No Vision needs: Yes (Glasses) Meds Allergies Allergy/AdvReac Type Severity Reaction Status Date / Time No Known Allergies Allergy Verified 01/04/25 10:21 Home Medications ?Medication ?Instructions ?Recorded ?Confirmed ?Last Taken ?Type memantine 5 mg tablet 5 mg PO BID 08/19/24 01/04/25 Unknown History alpha lipoic acid 600 mg capsule 600 mg PO BEDTIME 12/22/24 01/04/25 Unknown History gabapentin 300 mg capsule 300 mg PO BEDTIME 12/22/24 01/04/25 Unknown History sertraline 50 mg tablet 50 mg PO BEDTIME 12/22/24 01/04/25 Unknown History insulin aspart U-100 100 unit/mL 18 - 22 unit subcut TID 01/04/25 01/04/25 Unknown History (3 mL) subcutaneous pen (Novolog FlexPen U-100 Insulin aspart) insulin glargine U-300 conc 300 70 unit subcut BEDTIME 01/04/25 01/04/25 Unknown History unit/mL (3 mL) subcutaneous pen (Toujeo Max U-300 SoloStar) Exam Height,Weight and Vital Signs: Height 5 ft 8 in Weight 87.543 kg Last Vital Signs Pulse 97 12/22/24 10:31 Resp 16 12/22/24 10:31 BP 109/58 L 12/22/24 10:31 Pulse Ox 97 12/22/24 10:31 O2 Del Method Room Air 12/22/24 10:31 Pertinent Lab Results Pertinent Lab Results: Laboratory Tests 09/23/24 11/23/24 11:30 10:09 WBC 6.4 Hgb 13.2 L Hct 41.3 L Plt Count 249 Sodium 141 Potassium 4.9 Chloride 107 Carbon Dioxide 27 Hgb A1c (Clinic) 8.7 H Laboratory Tests 09/23/24 11:30 BUN 16 Creatinine 1.21 Narrative Narrative: EKG 12/2024 Vent. Rate : 78 BPM Atrial Rate : 78 BPM P-R Int : 160 ms QRS Dur : 96 ms QT Int : 358 ms P-R-T Axes : 52 20 32 degrees QTcB Int : 408 ms Normal sinus rhythm Possible Inferior infarct (cited on or before 05-Dec-2021) Abnormal ECG When compared with ECG of 05-Dec-2021 12:34, No significant change was found Carotid US 10/2023 US carotid duplex BI IMPRESSION: 1. RIGHT: Known occlusion of the right internal carotid artery. 2. LEFT: Normal left internal carotid artery without atherosclerotic plaque or hemodynamically significant stenosis. 3. There is no change in the category severity of disease when compared to the previous study dated 11/22/2022. 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 Right carotid artery occlusion B12 deficiency Hypertension Dyslipidemia Diabetic nephropathy associated with type 2 diabetes mellitus Proliferative diabetic retinopathy associated with type 2 diabetes mellitus Vitamin D deficiency Neuropathy Diabetes mellitus Family History Family History Father Heart disease Mother HTN (hypertension) Surgical History Surgical History H/O colonoscopy No pertinent past surgical history Social History Social History Household Members: Spouse Housing: Apartment Are you a primary behavioral health care manager to a significant other at home: No Do you presently have visiting nurse or other home services: No Alcohol intake: former Patient Tobacco Use Status: Former Tobacco user Tobacco use type: Cigarette e-Cigarette/Vaping Use: Never Used Second Hand Smoke Exposure: Yes Use of substances other than those prescribed or required for medical reasons: No Have you been hit, kicked, punched, or otherwise hurt by someone within the past year? If so, by whom?: No Are you DNR?: No Advance Directives: Yes Advance Directives Information Provided: No Advance Directives on File: Yes Advance Directives Date on File: 08/19/24 Recently lost weight without trying: No Eating poorly because of decreased appetite: No Nutrition Risks: No Nutritional Risk service: No Current occupational status: disabled Cognitive needs: No Hearing needs: No Vision needs: Yes (Glasses) Meds Allergies Allergy/AdvReac Type Severity Reaction Status Date / Time No Known Allergies Allergy Verified 01/04/25 10:21 Home Medications ?Medication ?Instructions ?Recorded ?Confirmed ?Last Taken ?Type memantine 5 mg tablet 5 mg PO BID 08/19/24 01/04/25 Unknown History alpha lipoic acid 600 mg capsule 600 mg PO BEDTIME 12/22/24 01/04/25 Unknown History gabapentin 300 mg capsule 300 mg PO BEDTIME 12/22/24 01/04/25 Unknown History sertraline 50 mg tablet 50 mg PO BEDTIME 12/22/24 01/04/25 Unknown History insulin aspart U-100 100 unit/mL 18 - 22 unit subcut TID 01/04/25 01/04/25 Unknown History (3 mL) subcutaneous pen (Novolog FlexPen U-100 Insulin aspart) insulin glargine U-300 conc 300 70 unit subcut BEDTIME 01/04/25 01/04/25 Unknown History unit/mL (3 mL) subcutaneous pen (Toujeo Max U-300 SoloStar) Assessment and Plan Assessment Anesthesia Assessment: Chart Reviewed Final Anesthetic Review NPO: Yes ASA Class: IV Final Preanesthetic Review: No Changes in Pt Med Stat, Meds/Allgs Chart Reviewed, Consent Obtained/Reviewed and Anes Risks/Benef Reviewed Patient Risk: High Procedure Risk: Intermediate Anesthetic Plan Anesthetic Plan: GA and Agree w/ Assess. and Plan Disposition: Standard PACU
[2025-01-05] VITALS (7 sets, daily range): BP systolic 133–162; BP diastolic 67–75; PULSE 68–78; RESP 16–18; TEMP 35.7–36.4; O2SAT 97–99; BMI 29.6
[2025-01-05] MEDS: Lactated Ringers 1,000 ML 100 ML IVCONT (06:40)
[2025-01-05 06:47] LABS: Glucose, Whole Blood 151 mg/dL (60-115)
--- NOTE | 2025-01-05 07:32 | MHC.SHP ---
Pre-Procedural Eval Section A - 24 Hr Update-Section A only Date of Service: 01/05/25 The patient is an INPATIENT: No Changes since office visit: Yes Patient answered all questions; No Cold of Flu in the past 2 weeks, No New Medical Problems and No Changes in Medication The patient has been examined within 24 hours of the surgical procedure. The History & Physical has been completed within 30 days and I have reviewed it.: No Section B - Complete if H&P > 30 days Chief Complaint: Umbilical hernia without obstruction or gangrene Details of Present Illness: No change in symptoms Relevant Family History (Specify if Yes): No Relevant Social History: None Present Medications: see Short Stay Collaborative assessment Medical History: Significant History (Carotid, PVD ) History of Previous Operations: No relevant previous surgery Allergies: Allergies Allergy/AdvReac Type Severity Reaction Status Date / Time No Known Allergies Allergy Verified 01/04/25 10:21 Review of Systems Sugical H&P ROS: Negative: Constitution, Cardiovascular, Respiratory, Neurological, Psychiatric, Hem-Onc, Allergic/Immunologic, Gastrointestinal, Genitourinary, Musculoskeletal, Integumentary and Endocrine Exam Surgical H&P Exam: Normal: HEENT, Normal: Heart, Normal: Lungs, Normal: Extremities, Normal: Abdomen and Normal: Skin Plan Diagnosis/Plan: Unchanged I have reviewed the history and physical and performed a pertinent physical examination on my patient. No changes have occurred unless specified. Time Spent With Patient Time: Total time managing care of this patient today ____ minutes.
[2025-01-05] MEDS: ceFAZolin Sodium/Dextrose,Iso 2 GM/50 ML PIGGYBACK IV (07:38)
--- NOTE | 2025-01-05 08:31 | P.OP_ITS ---
Operative Note Operative Note Date of Service: 01/05/25 Narrative: Preoperative diagnosis: Umbilical hernia, reducible Postoperative diagnosis: Same Procedure: Repair of umbilical hernia with mesh Surgeon: Elier Mason MD Accounting Associate: Nancy Corado PA-C; CELINE Larson Anesthesia: General LMA Indications for procedure: 69-year-old male patient presenting with a enlarging umbilical hernia which is causing discomfort. Patient requested repair of this umbilical hernia. Operative findings: 2 cm reducible umbilical hernia repaired using a 4.3 cm Ventralex mesh Specimen: None Estimated blood loss: 3 mL Complications: None Procedure details: Patient was brought to the OR and placed in a supine position. After administering general anesthesia the patient's abdomen was prepped with ChloraPrep and draped in a sterile fashion. A surgical time-out was called the consent confirmed. Patient received preoperative antibiotics and Venodyne boots were in place. Local anesthesia consisting of 0.5% Sensorcaine was infiltrated around the umbilicus. A curvilinear incision was made above the umbilicus transversely and carried down into the subcutaneous tissue down to the hernia sac. Hernia sac was then dissected off the umbilical skin. The sac was circumferentially dissected into the preperitoneal space. The sac was reduced into the abdominal cavity. A small opening in the peritoneum was closed using a running 0 Polysorb suture. A larger preperitoneal space was then created using sharp dissection. A 4.3 cm round Ventralex mesh was then obtained and deployed within the preperitoneal space. This was secured in 4 quadrants using the 0 Tycron suture. Fascia was then closed over the mesh using [id number] 0 Tycron sutures incorporating the mesh in the closure. Wounds were irrigated with saline solution and suctioned dry. Umbilical skin was then reattached to the fascia using a 3-0 Polysorb suture. Dermis was reapproximated using interrupted 3-0 Polysorb sutures. Skin was then closed using a running subcuticular 4-0 Polysorb suture. Sterile dressings consisting of Steri-Strips, 2 x 2 gauze and Tegaderm were then applied. The patient tolerated the procedure well. Sponge, instrument, needle counts reported as correct. The patient was transported to the recovery room in stable condition.
== END 2025-01-05 09:59 | disposition home or self-care (01) ==
PROVIDERS: PCP Internal Medicine; Visit Provider Surgery
PROC: (CPT 49591; principal; 2025-01-05 07:30)
DX: K42.9 Umbilical hernia without obstruction or gangrene (principal); E11.42 Type 2 diabetes mellitus with diabetic polyneuropathy; E11.21 Type 2 diabetes mellitus with diabetic nephropathy; E11.3599 Type 2 diabetes mellitus with proliferative diabetic retinopathy without macular edema, unspecified eye; F33.0 Major depressive disorder, recurrent, mild; I65.21 Occlusion and stenosis of right carotid artery; I10 Essential (primary) hypertension; E78.5 Hyperlipidemia, unspecified; Z79.4 Long term (current) use of insulin; Z79.84 Long term (current) use of oral hypoglycemic drugs; Z79.82 Long term (current) use of aspirin; Z79.899 Other long term (current) drug therapy; E53.8 Deficiency of other specified B group vitamins; E55.9 Vitamin D deficiency, unspecified; Z87.891 Personal history of nicotine dependence
CPT/HCPCS: 49591; 82947; 93005; C1781; J0690; J1885; J2003; J2371; J2704; J2795; J3010

== ENCOUNTER → 2025-01-05 06:06 | Outpatient (BNV) | payer OTHER, SELFPAY | PROVIDERS: PCP Internal Medicine; Visit Provider Surgery | DX: K42.9 Umbilical hernia without obstruction or gangrene (principal) | CPT/HCPCS: 49591 ==

== ENCOUNTER 2025-01-10 09:40 | Outpatient (REF) | payer OTHER, SELFPAY ==
--- NOTE | ~2025-01-10 | US_ITS ---
EXAMINATION: BILATERAL CAROTID ULTRASOUND WITH DOPPLER HISTORY: I65.23 - Occlusion and stenosis of bilateral carotid arteries COMPARISON: Comparison is made with the prior examination dated 11/17/2023. TECHNIQUE: Real time and Color and Spectral doppler ultrasonography of the carotid and vertebral arteries was performed in multiple planes. FINDINGS: The right internal carotid artery is chronically occluded. There is a small amount of lack at the left carotid bifurcation. VERTEBRAL FLOW DIRECTION: Antegrade bilaterally. PEAK SYSTOLIC VELOCITIES (in cm/sec): RIGHT: CCA: Prox: 128.3 Dist: 90.7 ICA: Prox: n/a Mid: n/a Dist: n/a ICA/CCA Ratio: n/a ECA: 143.1 Peak ICA EDV: n/a LEFT: CCA: Prox: 136.4 Dist: 71.3 ICA: Prox: 79.9 Mid: 101.3 Dist: 93.4 ICA/CCA Ratio: 0.74 ECA: 123.5 Peak ICA EDV: 33.2 US/US carotid duplex BI IMPRESSION: Chronically occluded right internal carotid artery. No significant stenosis of the left internal carotid artery. Electronically signed by: Brad Merrill MD 01/10/2025 11:06 AM EDT
== END 2025-01-10 09:41 | disposition home or self-care (01) ==
LOC: HO.US 09:40
PROVIDERS: PCP Internal Medicine; Visit Provider Surgery Vascular Surgery
DX: I65.23 Occlusion and stenosis of bilateral carotid arteries (principal)
CPT/HCPCS: 93880

== ENCOUNTER → 2025-01-10 09:44 | Outpatient (BNV) | payer OTHER, SELFPAY | PROVIDERS: PCP Internal Medicine; Visit Provider Radiology Diagnostic Radiology | DX: I65.21 Occlusion and stenosis of right carotid artery (principal) | CPT/HCPCS: 93880 ==

== ENCOUNTER 2025-01-14 09:51 | Outpatient (AMB) | payer OTHER, SELFPAY ==
--- NOTE | 2025-01-14 10:04 | A.OFFVIS_ITS ---
Vital Signs 01/14/25 10:20 Height 5 ft 8 in Weight 194 lb 0.108 oz BMI 29.5 Respiration 16 Pulse 72 Intake Visit Reasons: S/P umbilical hernia w/mesh Intake Note: Patient is seen in office for post op assessment post Repair of umbilical hernia with mesh. Pt c/o: denies any concerns regarding the incision surgery:01/05/25 Allergies No Known Allergies Allergy (Verified 01/04/25 10:21) HPI Comments Details: 69-year-old male patient returning 1 week following repair of an umbilical hernia with mesh. He feels well and denies any ongoing abdominal pain. He has denies any problems with nausea, vomiting, fever or chills. 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 carotid artery occlusion B12 deficiency Hypertension Dyslipidemia Diabetic nephropathy associated with type 2 diabetes mellitus Proliferative diabetic retinopathy associated with type 2 diabetes mellitus Vitamin D deficiency Neuropathy Diabetes mellitus Surgical History History of umbilical hernia repair (01/05/25) H/O colonoscopy Family History Father Heart disease Mother HTN (hypertension) Social History Household Members: Spouse Housing: Apartment Are you a primary lawn care worker to a significant other at home: No Do you presently have visiting nurse or other home services: No Alcohol intake: former Patient Tobacco Use Status: Former Tobacco user Tobacco use type: Cigarette e-Cigarette/Vaping Use: Never Used Second Hand Smoke Exposure: Yes Advance Directives Date on File: 08/19/24 service: No Current occupational status: disabled Cognitive needs: No Hearing needs: No Vision needs: Yes (Glasses) Physical Exam Vital Signs: Last Vital Signs Pulse 72 01/14/25 10:20 Resp 16 01/14/25 10:20 BMI result Body Mass Index 29.5 Const General: no acute distress Nutritional Appearance: well nourished Orientation/consciousness: patient oriented x3 Resp Effort & Inspection: normal respiratory effort GI Other: Umbilical incision is clean, dry, and intact without redness or discharge. No hernia noted with Valsalva maneuvers. Neuro General: patient oriented x3 Assessment & Plan Assessment & Plan (1) Umbilical hernia: Code(s): K42.9 - Umbilical hernia without obstruction or gangrene Category: Medical Qualifiers: Obstruction and gangrene presence: without obstruction or gangrene Qualified Code(s): K42.9 - Umbilical hernia without obstruction or gangrene Plan Patient returns 1 week following repair of an umbilical hernia with mesh. He tolerated the procedure well the wounds are healing nicely. Should continue to avoid lifting greater than 10 lb and return in 1 month for follow-up examination. He is welcome to call sooner for any new concerns. Coding Level of Care Code Global (05314) Diagnoses Umbilical hernia without obstruction and without gangrene K42.9 Obstruction and gangrene presence: without obstruction or gangrene
[2025-01-14 10:20] VITALS: PULSE 72; RESP 16; BMI 29.5
== END 2025-01-14 10:21 | disposition home or self-care (01) ==
LOC: HO.HGS 09:52
PROVIDERS: PCP Internal Medicine; Visit Provider Surgery
DX: K42.9 Umbilical hernia without obstruction or gangrene (principal)
CPT/HCPCS: 99212

== ENCOUNTER → 2025-01-14 09:51 | Outpatient (BNVA) | payer OTHER, SELFPAY | PROVIDERS: PCP Internal Medicine; Visit Provider Surgery | DX: Z48.815 Encounter for surgical aftercare following surgery on the digestive system (principal); Z98.890 Other specified postprocedural states | CPT/HCPCS: 99212 ==

== ENCOUNTER 2025-01-15 07:05 | Outpatient (REF) | payer OTHER, SELFPAY ==
[2025-01-15 07:30] LABS: Platelet Count 271 X10*3/uL (160-400)
[2025-01-15 07:47] LABS: Appearance Urine Clear; Color Urine Yellow; Glucose Urine UA >=1000 mg/dL (Negative); Leukocyte Esterase Urine Negative (Negative); Nitrite Urine Negative (Negative); PH 6.5 (5.0-9.0); Specific Gravity - Urine >= 1.030 (1.005-1.025); UMIC TRIGGER UA YES; Urine Blood Negative (Negative); Urine Ketones Negative (Negative); Urine Protein Negative (Neg-Trace)
[2025-01-15 07:53] LABS: Bacteria Urine None Seen (None Seen); Hyaline Casts Urine 0-2 /LPF (0-2); RBC Urine 0-2 /HPF (0-2); Squamous Epithelial Cell Urine 0-2 /HPF (0-2); WBC Urine 0-5 /HPF (0-5)
[2025-01-15 08:11] LABS: Creatinine Urine 122.24 mg/dL; Microalbum/Creatinine Ratio Ur 17.1 ug/mg cr (<30)
[2025-01-15 08:14] LABS: B Type Natriuretic Peptide 21 pg/mL (<100)
[2025-01-15 08:18] LABS: Alanine Aminotransferase 22 U/L (0-40); Albumin Level 3.9 g/dL (3.5-5.0); Alkaline Phosphatase 75 U/L (39-117); Anion Gap 10 (12-20); Aspartate Amino Transferase 26 U/L (5-37); Bilirubin Total 0.2 mg/dL (0.0-1.0); Blood Urea Nitrogen 18 mg/dL (9-16); Calcium 9.2 mg/dL (8.4-10.2); Carbon Dioxide 24 mmol/L (22-29); Chloride 113 mmol/L (96-108); Cholesterol 109 mg/dL (<200); Estimated Glomerular Filt Rate > 60; Glucose Fasting 97 mg/dL (60-99); HDL Cholesterol 29 mg/dL (>40); LDL Cholesterol Calculated 58 mg/dL (<100); Sodium 143 mmol/L (135-145); Total Protein 7.2 g/dL (6.5-8.0); Triglycerides 114 mg/dL (<150)
[2025-01-15 08:36] LABS: Vitamin D 25-OH Total 46.2 ng/mL (>30)
== END 2025-01-15 07:06 | disposition home or self-care (01) ==
LOC: HO.LAB 07:05
PROVIDERS: Absent Provider Physician Assistant Medical; PCP Internal Medicine; Visit Provider Internal Medicine
DX: R39.9 Unspecified symptoms and signs involving the genitourinary system (principal); E11.42 Type 2 diabetes mellitus with diabetic polyneuropathy; Z79.4 Long term (current) use of insulin; E78.5 Hyperlipidemia, unspecified; R80.9 Proteinuria, unspecified; E55.9 Vitamin D deficiency, unspecified
CPT/HCPCS: 36415; 80053; 80061; 81001; 82043; 82306; 82570; 83880; 85049

== ENCOUNTER 2025-01-27 12:51 | Outpatient (AMB) | payer OTHER, SELFPAY ==
--- NOTE | 2025-01-27 13:06 | A.OFFVIS_ITS ---
Vital Signs 01/27/25 13:08 Height 5 ft 8 in Intake Visit Reasons: follow up s/p Carotid US 01/10/25 Intake Note: Patient presents for follow up carotid US. No complaints. Allergies No Known Allergies Allergy (Verified 01/27/25 13:07) HPI HPI follow up s/p Carotid US 01/10/25: Details: The patient is a 69-year-old male presenting with carotid ultrasound follow-up. He has a history of left carotid artery occlusion, which was previously detected and is being monitored. He now presents for routine carotid surveillance.. Additionally, the patient has a history of diabetes mellitus type 2, which is reportedly improving, and he ceased smoking about nine years ago. These risk factors contribute to his overall vascular condition and necessitate regular monitoring. 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 Right carotid artery occlusion B12 deficiency Hypertension Dyslipidemia Diabetic nephropathy associated with type 2 diabetes mellitus Proliferative diabetic retinopathy associated with type 2 diabetes mellitus Vitamin D deficiency Neuropathy Diabetes mellitus Surgical History History of umbilical hernia repair (01/05/25) H/O colonoscopy Family History Father Heart disease Mother HTN (hypertension) Social History Household Members: Spouse Housing: Apartment Are you a primary career professional to a significant other at home: No Do you presently have visiting nurse or other home services: No Alcohol intake: former Patient Tobacco Use Status: Former Tobacco user Tobacco use type: Cigarette e-Cigarette/Vaping Use: Never Used Second Hand Smoke Exposure: Yes Advance Directives Date on File: 08/19/24 service: No Current occupational status: disabled Cognitive needs: No Hearing needs: No Vision needs: Yes (Glasses) Review of Systems Const All systems reviewed & are unremarkable except as noted in HPI and below Reports no additional complaints ENT Reports Normal hearing present Card Denies chest pain, Denies chest pain at rest, Denies chest pain with activity and Denies pedal edema Resp Denies cough GI Denies abdominal pain Musc Denies abnormal gait, Denies muscle cramps and Denies radiating pain into limb Skin/Breast Denies skin ulcer and Denies wounds Neuro Reports Normal hearing present and Denies abnormal gait Psych Reports no additional complaints Physical Exam Const General: cooperative, healthy appearing and comfortable Orientation/consciousness: oriented to person, oriented to place and oriented to time HEENT Head: Yes normal to inspection Neck Neck: Yes normal visual inspection Carotids: no bruits Chest Chest palpation & inspection: normal inspection of the chest Resp Effort & Inspection: normal respiratory effort and able to speak in complete sentences Auscultation: clear to auscultation bilaterally, no crackles, no rales, no rhonchi and no wheezes Cardio Rate: regular rate Rhythm: regular rhythm Heart sounds: S1 normal heart sound present and S2 normal heart sound present Bruits: no carotid bruits Peripheral pulses: Peripheral pulses 2+ throughout GI Inspection: Yes normal to inspection Skin Wounds: no wounds Hair: normal Neuro General: oriented to person, oriented to place and oriented to time Cranial nerves: Yes CN's II-XII intact bilaterally and Yes Normal hearing present Cognition (Neuro): normal cognition Motor exam (neuro): 5/5 motor strength present throughout Extrem Other: venous exam: No significant superficial varicosities or spider telangiectasias, minimal edema General: No clubbing, No cyanosis and No edema Psych Appearance: grossly normal Mental Status: mental status grossly normal Speech and movement: Normal speech and movement present Results Reviewed Results Reviewed: Carotid testing dated 01/10/2025 demonstrates known right-sided occlusion left side 0-49 with a peak systolic of 101. Written report and images were reviewed. Assessment & Plan Assessment & Plan (1) Bilateral carotid artery stenosis: Code(s): I65.23 - Occlusion and stenosis of bilateral carotid arteries Category: Medical Plan: In short patient has asymptomatic carotid disease. We have reviewed signs and symptoms of a stroke. We also discussed risk factor modification inclusive a he althy diet low in cholesterol. The patient will follow up with us with surveillance ultrasound of the carotids 1 year. Should there be any changes or signs or symptoms of a stroke we will be happy to see them back sooner. Thank you for allowing us to participate in this patient's care. If there are any questions or concerns please do not hesitate to contact us. Plan Patient was informed and verbally consented to the use of an ambient scribe for clinic note documentation during this visit. Orders: Orders US carotid duplex BI 1 Year I65.23 - Occlusion and stenosis of bilateral carotid arteries Patient Instructions: - Continue current diabetes management plan as discussed with your healthcare provider. - Maintain a healthy lifestyle, including diet and exercise, to help manage diabetes and overall vascular health. - Do not smoke; it is beneficial for your overall health. - Return for a follow-up carotid ultrasound in one year as scheduled. - Report any new symptoms or concerns to your healthcare provider immediately. Coding Level of Care Code Est Pt Level 4 (41225) Complex EM visit Add On G2211 Diagnoses Bilateral carotid artery stenosis I65.23
== END 2025-01-27 13:28 | disposition home or self-care (01) ==
LOC: HO.HVS 12:52
PROVIDERS: PCP Internal Medicine; Visit Provider Surgery Vascular Surgery
DX: I65.23 Occlusion and stenosis of bilateral carotid arteries (principal)
CPT/HCPCS: 99214; G2211

== ENCOUNTER → 2025-01-27 12:51 | Outpatient (BNVA) | payer OTHER, SELFPAY | PROVIDERS: PCP Internal Medicine; Visit Provider Surgery Vascular Surgery | DX: I65.23 Occlusion and stenosis of bilateral carotid arteries (principal) | CPT/HCPCS: 99212 ==

== ENCOUNTER 2025-02-15 09:34 | Outpatient (AMB) | payer OTHER, SELFPAY ==
--- NOTE | 2025-02-15 09:39 | MHC.OFFVIS ---
Vital Signs 02/15/25 09:44 Height 5 ft 8 in Weight 192 lb 10.944 oz BMI 29.3 BP 130/82 Intake Visit Reasons: 1 mth f/u S/P umbilical hernia w/mesh Intake Note: Patient is seen in office for one month follow up visit post repair of umbilical hernia with mesh. Pt c/o: denies any concerns Drafting Supervisor Required: No Farm Machinery Set Up Mechanic: Farm Machinery Set Up Mechanic Present Accompanied by: Self / Same As Patient Allergies No Known Allergies Allergy (Verified 02/15/25 09:44) HPI Comments Details: 69-year-old male presents to the office for 1 month follow up sp umbillical hernia repair. Patient presents with his , states he is doing well. He does not have any futher concerns. He denies pain, discharge from the incision site. 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 Right carotid artery occlusion B12 deficiency Hypertension Dyslipidemia Diabetic nephropathy associated with type 2 diabetes mellitus Proliferative diabetic retinopathy associated with type 2 diabetes mellitus Vitamin D deficiency Neuropathy Diabetes mellitus Surgical History History of umbilical hernia repair (01/05/25) H/O colonoscopy (~03/11/19) Family History Father Heart disease Mother HTN (hypertension) Social History Household Members: Spouse Housing: Apartment Are you a primary careers counsellor to a significant other at home: No Do you presently have visiting nurse or other home services: No Alcohol intake: former Patient Tobacco Use Status: Former Tobacco user Tobacco use type: Cigarette e-Cigarette/Vaping Use: Never Used Second Hand Smoke Exposure: Yes Advance Directives Date on File: 08/19/24 service: No Current occupational status: disabled Cognitive needs: No Hearing needs: No Vision needs: Yes (Glasses) Review of Systems Const All systems reviewed & are unremarkable except as noted in HPI and below Physical Exam Vital Signs: Last Vital Signs BP 130/82 02/15/25 09:44 BMI result Body Mass Index 29.3 Const General: cooperative and no acute distress Orientation/consciousness: patient oriented x3 GI Other: Umbilical incision site is intact, appropriate healing. No evidence of recurrance with valsalva Palpation (GI): Soft to palpation, nontender and no guarding Neuro General: patient oriented x3 Assessment & Plan Assessment & Plan (1) Umbilical hernia: Code(s): K42.9 - Umbilical hernia without obstruction or gangrene Category: Medical Qualifiers: Obstruction and gangrene presence: without obstruction or gangrene Qualified Code(s): K42.9 - Umbilical hernia without obstruction or gangrene Plan: see below Plan 69-year-old male presents to the office for 1 month follow up s/p umbilical hernia repair with mesh. Patient is doing well, asymptomatic. Incision site is healing appropriately. No concerns for infection. No evidence of hernia recurrence on physical exam with valsalva. Patient has no further questions or concerns. Patient instructed that he may slowly advance his activity level as tolerated. We discussed follow up, patient does not need to continue to follow up at this time. He understands that he can call to schedule an appointment for evaluation at any point if he has concerns, or a new problem. Coding Level of Care Code Est Pt Level 2 (69552) Diagnoses Umbilical hernia without obstruction and without gangrene K42.9 Obstruction and gangrene presence: without obstruction or gangrene
[2025-02-15 09:44] VITALS: BP 130/82; BMI 29.3
== END 2025-02-15 09:53 | disposition home or self-care (01) ==
LOC: HO.HGS 09:35
PROVIDERS: PCP Internal Medicine; Visit Provider Surgery
DX: K42.9 Umbilical hernia without obstruction or gangrene (principal)
CPT/HCPCS: 99212

== ENCOUNTER → 2025-02-15 09:34 | Outpatient (BNVA) | payer OTHER, SELFPAY | PROVIDERS: PCP Internal Medicine; Visit Provider Surgery | DX: Z09 Encounter for follow-up examination after completed treatment for conditions other than malignant neoplasm (principal); Z87.19 Personal history of other diseases of the digestive system; Z98.890 Other specified postprocedural states | CPT/HCPCS: 99212 ==

== ENCOUNTER 2025-02-22 09:50 | Outpatient (AMB) | payer OTHER, SELFPAY ==
[2025-02-22 09:52] VITALS: BP 132/72; PULSE 77; O2SAT 97; BMI 29.8
--- NOTE | 2025-02-22 09:52 | MHC.OFFVIS ---
Vital Signs 02/22/25 09:52 Height 5 ft 8 in Weight 196 lb 3.382 oz BMI 29.8 BP 132/72 Blood Pressure Location Rt brachial Position Sitting Pulse 77 Pulse Source Pulse Oximeter Pulse Oximetry (%) 97 Intake Visit Reasons: T2DM Intake Note: Patient presents today for a follow-up on Type 2 Diabetes Mellitus: Last Diabetic eye exam was on: 06/2024 Last Podiatry exam was on: Patient does not see a Bed Laborer Most recent HbA1c: DUE Random Glucose- 167 mg/dL, Today Interior Design Assistant Required: Yes Interior Design Assistant Language: Perl Developer Services: Interior Design Assistant Present Interior Design Assistant Name: OLGA LIDIA Vee/QI RUBY Accompanied by: Significant Other Allergies No Known Allergies Allergy (Verified 02/15/25 09:44) Medication List - Last Reconciled 02/22/25 by DUC Barrera alcohol swabs (Alcohol Prep Pads) 1 pad topical .8 times a day 30 days alpha lipoic acid 600 mg PO BEDTIME aspirin (Adult Aspirin Regimen) 81 mg PO DAILY 90 days atorvastatin 40 mg PO BEDTIME 90 days [bath mat As directed] blood pressure test kit-medium As directed blood sugar diagnostic (FreeStyle Test strips) 4 times a day blood-glucose meter (FreeStyle [place] kit) As directed cholecalciferol (vitamin D3) 50 mcg PO DAILY 30 days clopidogrel (Plavix) 75 mg PO DAILY cyanocobalamin (vitamin B-12) 100 mcg PO DAILY 30 days empagliflozin (Jardiance) 25 mg PO DAILY 90 days enalapril maleate 5 mg PO DAILY flash glucose scanning reader (FreeStyle Jennifer 2 [place]) As directed gabapentin 300 mg PO BEDTIME glucose (Dex4 Glucose) 16 grams (4 x 4 gram) PO Q15M PRN insulin aspart U-100 (Novolog FlexPen U-100 Insulin aspart) 18 - 22 units (0.18 - 0.22 mL) subcut TID insulin glargine U-300 conc (Toujeo Max U-300 SoloStar) 70 units subcut BEDTIME lancets (FreeStyle Lancets) 4 times a day memantine 5 mg PO BID metformin 1,000 mg PO BID 90 days oxycodone 5 mg PO Q6H PRN pantoprazole 40 mg PO BID 90 days pen needle, diabetic 4 times a day pioglitazone (Actos) 45 mg PO DAILY pregabalin 75 mg PO BEDTIME 30 days sertraline 50 mg PO BEDTIME [tray table As directed] HPI Comments Details: Patient is a 69-year-old male with DM type 2 diagnosed 20 years ago who presents for continued management of diabetes. Interior Design Assistant present. The patient is accompanied by his . Hemoglobin A1c today 02/22/2025 8.1%. Hemoglobin a1c is 8.7% 11/23/2024. 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 Diabetes medications: Toujeo 70 units nightly, NovoLog 18 units before breakfast (did not increase after last visit), 18 units before lunch and 20 units before dinner,,Metformin 1000mg bid, Jardiance 25 mg daily, Actos 45 mg. Past medications: Januvia stopped when patient was switched to Actos. Had cellulitis with Freestyle jennifer. Reported diarrhea with Trulicity. Compliance: Noncompliance with diabetic diet Reviewed Dexcom data Average glucose 189 mg/dL G MD 7.8% 15% very high 39% high 45% target range 1% low There is a pattern of hypoglycemia in the afternoon and hyperglycemia after breakfast and occasionally after dinner. When he has hypoglycemia in the afternoon he does not have symptoms, but he takes orange juice or glucose tablets, and it resolves. ROS: Constitutional: No fevers or chills. Denies weight gain. Eyes: No vision changes Respiratory: No shortness of breath Cardiovascular: No chest pain. Denies leg swelling. Neurologic: No headache, dizziness, syncope Physical exam: Constitutional: Alert, in no distress. Neck: Supple, Full range of motion. No lymphadenopathy. Respiratory: Clear to auscultation. Cardiovascular: S1 S2 regular. No murmurs. Psychiatric: Normal mood and affect Right foot: Warm and well perfused. No clubbing, cyanosis or edema. Intact DP pulse. Absent vibratory sensation. Intact sensation to monofilament. Left foot: Warm and well perfused. No clubbing, cyanosis or edema. Intact DP pulse. Absent vibratory sensation. Intact sensation to monofilament. 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 Right carotid artery occlusion B12 deficiency Hypertension Dyslipidemia Diabetic nephropathy associated with type 2 diabetes mellitus Proliferative diabetic retinopathy associated with type 2 diabetes mellitus Vitamin D deficiency Neuropathy Diabetes mellitus Surgical History History of umbilical hernia repair (01/05/25) H/O colonoscopy (~03/11/19) Family History Father Heart disease Mother HTN (hypertension) Social History Household Members: Spouse Housing: Apartment Are you a primary residential caregiver to a significant other at home: No Do you presently have visiting nurse or other home services: No Alcohol intake: former Patient Tobacco Use Status: Former Tobacco user Tobacco use type: Cigarette e-Cigarette/Vaping Use: Never Used Second Hand Smoke Exposure: Yes Advance Directives Date on File: 08/19/24 service: No Current occupational status: disabled Cognitive needs: No Hearing needs: No Vision needs: Yes (Glasses) Physical Exam Vital Signs: Last Vital Signs Pulse 77 02/22/25 09:52 BP 132/76 02/22/25 09:52 Pulse Ox 97 02/22/25 09:52 BMI result Body Mass Index 29.8 Office Procedures Glucose Monitoring Details Details: See HPI 31333 - Glucose monitoring, continuous-physician I&R Procedure code (CPT) selection complete Results Reviewed Results Reviewed: Laboratory Tests 01/15/25 07:20 Plt Count 271 Creatinine 1.02 Estimated GFR > 60 AST 26 ALT 22 B-Natriuretic Peptide 21 Triglycerides 114 Cholesterol 109 LDL Cholesterol, Calc 58 HDL Cholesterol 29 L 25-OH Vitamin D Total 46.2 Urine Creatinine 122.24 Urine Microalbumin 21.0 Microalb/Creat Ratio 17.1 02/22/2025 Fibrosis for index is 1.45 points excluding advanced fibrosis. Assessment & Plan Assessment & Plan (1) Type 2 diabetes mellitus with diabetic polyneuropathy: Code(s): E11.42 - Type 2 diabetes mellitus with diabetic polyneuropathy Category: Medical Qualifiers: Diabetes mellitus dedicated intermodal truck driver insulin use: with dedicated intermodal truck driver use Qualified Code(s): E11.42 - Type 2 diabetes mellitus with diabetic polyneuropathy; Z79.4 - shelter (current) use of insulin Plan: In summary this is a 69-year-old male with type 2 diabetes with known micro and macrovascular complications with sub optimal but improving glycemic control. Continue Toujeo 70 units nightly. Increase NovoLog to 22 units before breakfast, decrease to 14 units before lunch and continue 20 units before dinner. Continue Jardiance 25 mg daily. Continue metformin 1000 mg twice daily. Continue Actos to 45 mg daily. Lifestyle modifications reviewed with the patient. He sees the life skills educator. He declines referral to the medical device at this time. Reviewed proper treatment of hypoglycemia. He has glucose tablets. Written instructions provided. Follow up in 6 weeks for type 2 diabetes. 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 45 mg PO DAILY 90 tabs 1RF Patient Instructions: Continue Toujeo 70 units nightly. Take NovoLog 22 units before breakfast, take 14 units before lunch and 20 units before dinner. Continue Actos 45 mg daily. Metformin 1000mg bid and Jardiance 25 mg daily. If you experience low blood sugar, treat this by eating a chewable fruit candy like skittles or jelly beans (about 8 pieces), 4 ounces (1/2 cup) of fruit juice (not diet), 1 tablespoon of honey or 4 glucose tablets. If your blood sugar is under 55, take double the amount of one of the above. Recheck your blood sugar in 15 minutes. Contin?e con Toujeo 70 unidades cada noche. [place] NovoLog 22 unidades antes del desayuno, 14 unidades antes del almuerzo y 20 unidades antes de la reginald. Contin?e con Actos 45 mg al d?a. Metformina 1000 mg dos veces al d?a y Jardiance 25 mg al d?a. Si experimenta niveles bajos de az?car en la marsha, tr?telo con un caramelo masticable de fruta sarah Skittles o Jelly Beans (aproximadamente 8 piezas), 113 ml (1/2 taza) de jugo de fruta (no light), 1 cucharada de miel o 4 tabletas de glucosa. Si ureña nivel de az?car en la marsha es inferior a 55, tome el doble de la cantidad de oprsha de los medicamentos mencionados. Vuelva a controlar ureña nivel de az?car en la marsha en 15 minutos. Coding Level of Care Code Est Pt Level 4 (52661) Diagnoses Type 2 diabetes mellitus with diabetic polyneuropathy, with long-term current use of insulin E11.42; Z79.4 Diabetes mellitus dedicated intermodal truck driver insulin use: with usp use CPT Codes Details - CPT: 50041 - Glucose monitoring, continuous-physician I&R ([id number])
[2025-02-22 10:01] LABS: Glucose, Whole Blood 167 mg/dL (60-115)
== END 2025-02-22 10:22 | disposition home or self-care (01) ==
LOC: HO.ENCR 09:51
PROVIDERS: PCP Internal Medicine; Visit Provider Physician Assistant Medical
DX: E11.42 Type 2 diabetes mellitus with diabetic polyneuropathy (principal); Z79.4 Long term (current) use of insulin; E11.3513 Type 2 diabetes mellitus with proliferative diabetic retinopathy with macular edema, bilateral

== ENCOUNTER → 2025-02-22 09:50 | Outpatient (BNVA) | payer OTHER, SELFPAY | PROVIDERS: PCP Internal Medicine; Visit Provider Physician Assistant Medical | DX: E11.42 Type 2 diabetes mellitus with diabetic polyneuropathy (principal); Z79.4 Long term (current) use of insulin | CPT/HCPCS: 82947; 83036; 99212 ==

== ENCOUNTER 2025-03-09 10:34 | Outpatient (AMB) | payer OTHER, SELFPAY ==
--- NOTE | 2025-03-09 11:01 | MHC.OFFVIS ---
Vital Signs 03/09/25 11:04 Height 5 ft 8 in Weight 196 lb BMI 29.8 BP 132/62 Blood Pressure Location Rt brachial Position Sitting Pulse 78 Pulse Source Pulse Oximeter Pulse Oximetry (%) 98 Oxygen Delivery Method Room Air Intake Visit Reasons: Constipation Intake Note: NEW PATIENT for eval of constipation, GERD, and possible motility issues per PCP. Last colo [address] Linares w/ 10 year recall. CC: C.O. constipation, bloating, difficulty with evacuation. Pt comments that his GERD seems fairly well managed and his pantoprazole is still working OK. Pt has not seen Dr. Linares since his colo and typically only follows up with his PCP for concerns. Social Media Job Titles Required: Yes Social Media Job Titles Services: Social Media Job Titles Present Social Media Job Titles Name: Laura [id number] Information Interpreted: clinical only Accompanied by: Spouse Allergies No Known Allergies Allergy (Verified 03/09/25 11:10) HPI HPI Constipation: Details: 69-year-old male with past medical history of hypercholesteremia, diabetes, hypertension, GERD, CVA, anxiety, neuropathy is here today for initial consultation. Patient was sent to us by his PCP. Patient had colonoscopy in [address] Linares, normal colonoscopy. Patient is currently on pantoprazole daily. Patient denies any dyspepsia, dysphagia or odynophagia. Reports constipation. Currently not taking any to help her move his bowels. Patient denies melena, hematochezia, unintentional weight loss or ribbon like stools. Patient reports occasional abdominal bloating postprandially. 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 carotid artery occlusion B12 deficiency Hypertension Dyslipidemia Diabetic nephropathy associated with type 2 diabetes mellitus Proliferative diabetic retinopathy associated with type 2 diabetes mellitus Vitamin D deficiency Neuropathy Diabetes mellitus Surgical History History of umbilical hernia repair (01/05/25) H/O colonoscopy (~03/11/19) Family History Father Heart disease Mother HTN (hypertension) Social History Household Members: Spouse Housing: Apartment Are you a primary medicare coordinator to a significant other at home: No Do you presently have visiting nurse or other home services: No Alcohol intake: former Patient Tobacco Use Status: Former Tobacco user Tobacco use type: Cigarette e-Cigarette/Vaping Use: Never Used Second Hand Smoke Exposure: Yes Advance Directives Date on File: 08/19/24 service: No Current occupational status: disabled Cognitive needs: No Hearing needs: No Vision needs: Yes (Glasses) Review of Systems Const Denies weight gain and Denies weight loss ENT Reports no additional complaints, Denies dysphagia and Denies odynophagia Card Reports no additional complaints Resp Reports no additional complaints GI Denies abdominal pain, Denies belching, Denies melena, Denies bloating, Denies change in bowel habits, Reports constipation (Occasional), Denies dysphagia, Denies excessive flatus, Denies dyspepsia, Reports heartburn (Occasional), Denies diarrhea, Denies loose stools, Denies nausea, Denies odynophagia and Denies vomiting Reports no additional complaints Musc Reports no additional complaints Neuro Reports no additional complaints Psych Reports no additional complaints Endo Reports no additional complaints Physical Exam Vital Signs: Last Vital Signs Pulse 78 03/09/25 11:04 BP 132/62 03/09/25 11:04 Pulse Ox 98 03/09/25 11:04 Oxygen Delivery Method Room Air 03/09/25 11:04 BMI result Body Mass Index 29.8 Const General: healthy appearing, no acute distress and well developed Nutritional Appearance: well nourished and obese Orientation/consciousness: patient oriented x3 Resp Effort & Inspection: normal respiratory effort, able to speak in complete sentences, no tracheal deviation and symmetric chest movement Auscultation: clear to auscultation bilaterally Cardio Rate: regular rate GI Inspection: Yes normal to inspection, No distended and Yes obesity Palpation (GI): Soft to palpation, not firm, nontender and No hepatosplenomegaly present Auscultation: normal bowel sounds General: Yes no CVA tenderness Back/Spine/Pelvis Back: no CVA tenderness Skin General skin exam: elasticity normal, turgor normal and dry skin Neuro General: patient oriented x3 Psych Appearance: grossly normal Mental Status: mental status grossly normal Assessment & Plan Assessment & Plan (1) GERD (gastroesophageal reflux disease): Code(s): K21.9 - Gastro-esophageal reflux disease without esophagitis Category: Medical Qualifiers: Esophagitis presence: esophagitis presence not specified Qualified Code(s): K21.9 - Gastro-esophageal reflux disease without esophagitis (2) Postprandial abdominal bloating: Code(s): R14.0 - Abdominal distension (gaseous) Plan Patient will continue pantoprazole daily. Avoid dietary triggers a late night snacking. Increase fluid intake and activity to promote better bowel motility. Patient will take soqi-juy-jruykyk fiber. Patient will return to the office in 3 months, sooner on as needed basis. He is agreeable to this plan and verbalizes understanding of instructions. He was given the opportunity to ask questions and all questions answered. Thank you for allowing me participate in his care he Coding Level of Care Code New Pt Level 3 (65634) Diagnoses Gastroesophageal reflux disease, unspecified whether esophagitis present K21.9 Esophagitis presence: esophagitis presence not specified Postprandial abdominal bloating R14.0 Time Spent (min) 40 Comment 30 minutes spent with patient and additional 10 minutes spent reviewing his records
[2025-03-09 11:04] VITALS: BP 132/62; PULSE 78; O2SAT 98; BMI 29.8
== END 2025-03-09 11:43 | disposition home or self-care (01) ==
LOC: HO.HGI 10:34
PROVIDERS: PCP Internal Medicine; Visit Provider Nurse Practitioner Family
DX: K21.9 Gastro-esophageal reflux disease without esophagitis (principal); R14.0 Abdominal distension (gaseous)
CPT/HCPCS: 99203

== ENCOUNTER → 2025-03-09 10:34 | Outpatient (BNVA) | payer OTHER, SELFPAY | PROVIDERS: PCP Internal Medicine; Visit Provider Nurse Practitioner Family | DX: K21.9 Gastro-esophageal reflux disease without esophagitis (principal); R14.0 Abdominal distension (gaseous) | CPT/HCPCS: 99202 ==

== ENCOUNTER 2025-03-30 10:50 | Outpatient (AMB) | payer OTHER, SELFPAY ==
--- NOTE | 2025-03-30 11:04 | A.OFFPC_ITS ---
Vital Signs 03/30/25 11:06 Height 5 ft 8 in Weight 198 lb BMI 30.1 BP 126/60 Blood Pressure Location Lt brachial Position Sitting Intake Visit Reasons: dm Intake Note: Patient here for a follow up DM Plsql Developer Required: No Accompanied by: Spouse Allergies No Known Allergies Allergy (Verified 03/30/25 11:31) Medication List - Last Reconciled 03/30/25 by Tami Almodovar MD alcohol swabs (Alcohol Prep Pads) 1 pad topical .8 times a day 30 days alpha lipoic acid 600 mg PO BEDTIME aspirin (Adult Aspirin Regimen) 81 mg PO DAILY 90 days atorvastatin 40 mg PO BEDTIME 90 days [bath mat As directed] blood pressure test kit-medium As directed blood sugar diagnostic (FreeStyle Test strips) 4 times a day blood-glucose meter (FreeStyle [place] kit) As directed cholecalciferol (vitamin D3) 50 mcg PO DAILY 30 days clopidogrel (Plavix) 75 mg PO DAILY cyanocobalamin (vitamin B-12) 100 mcg PO DAILY 30 days empagliflozin (Jardiance) 25 mg PO DAILY 90 days enalapril maleate 5 mg PO DAILY flash glucose scanning reader ([place] Jennifer [address] [place]) As directed gabapentin 300 mg PO BEDTIME glucose (Dex4 Glucose) 16 grams (4 x 4 gram) PO Q15M PRN insulin aspart U-100 (Novolog FlexPen U-100 Insulin aspart) 18 - 22 units (0.18 - 0.22 mL) subcut TID insulin glargine U-300 conc (Toujeo Max U-300 SoloStar) 70 units (0.2333 mL) subcut BEDTIME lancets (FreeStyle Lancets) 4 times a day memantine 5 mg PO BID metformin 1,000 mg PO BID 90 days pantoprazole 40 mg PO BID 90 days pen needle, diabetic 4 times a day pioglitazone (Actos) 45 mg PO DAILY pregabalin 75 mg PO BEDTIME 30 days sertraline 50 mg PO BEDTIME [tray table As directed] Tobacco use date assessed: 11/18/24 Dental Screening Dental Screen Date: 11/18/24 HPI HPI Comments History of Present Illness Details The patient is a 69-year-old male presenting with concerns related to diabetes management and depression. 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 He also has hypertension and dyslipidemia that has been stable with medications. The patient has a history of diabetes mellitus, with a recent HbA1c of 8.1% recorded in February, indicating suboptimal glycemic control. He reports blood glucose levels reaching as high as 190 mg/dL. Current medications include Metformin, Pioglitazone, and Jardiance, which he is adhering to as prescribed. The patient also reports experiencing depression, for which he has been taking Sertraline for over two years. Despite medication, he continues to experience symptoms of depression, including feelings of sadness but does not want to increase the medication. Additionally, the patient describes a sensation of moisture in the perianal area, although no visible moisture is present upon examination. He denies using any protective garments and has not purchased new underwear recently. The patient has an open wound, which is not currently infected, and he is considering visiting a wound clinic for further evaluation. 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 Right carotid artery occlusion B12 deficiency Hypertension Dyslipidemia Diabetic nephropathy associated with type 2 diabetes mellitus Proliferative diabetic retinopathy associated with type 2 diabetes mellitus Vitamin D deficiency Neuropathy Diabetes mellitus Surgical History History of umbilical hernia repair (01/05/25) H/O colonoscopy (~03/11/19) Family History Father Heart disease Mother HTN (hypertension) Social History Household Members: Spouse Housing: Apartment Are you a primary interior plant caretaker to a significant other at home: No Do you presently have visiting nurse or other home services: No Alcohol intake: former Patient Tobacco Use Status: Former Tobacco user Tobacco use type: Cigarette e-Cigarette/Vaping Use: Never Used Second Hand Smoke Exposure: Yes Advance Directives Date on File: 08/19/24 service: No Current occupational status: disabled Cognitive needs: No Hearing needs: No Vision needs: Yes (Glasses) Questionnaire PHQ-9 Over the last 2 weeks, how often have you been bothered by any of the following problems? 1. Little interest or pleasure in doing things: nearly every day 2. Feeling down, depressed, or hopeless: nearly every day 3. Trouble falling or staying asleep, or sleeping too much: nearly every day 4. Feeling tired or having little energy: several days 5. Poor appetite or overeating: not at all 6. Feeling bad about yourself - or that you are a failure or have let yourself or your family down: not at all 7. Trouble concentrating on things, such as reading the newspaper or watching television: nearly every day 8. Moving or speaking so slowly that other people could have noticed. Or the opposite - being so fidgety or restless that you have been moving around a lot more than usual: nearly every day 9. Thoughts that you would be better off or of hurting yourself in some way: not at all Total score: 16 Depression Screening Interpretation: Positive (No suicidal thoughts) Depression Screening Follow-up: Existing condition, In treatment and Follow-up Visit Requested Depression Screening Done: Yes 70060 - PHQ-9 Billing: Yes Source: Developed by Drs. Brad Espinal, Julia Guzman, Torsten Lindsey and colleagues, with an educational greg from [employer]. Thrive Questionnaire Date Thrive assessed: 03/30/25 I am a: Patient What is your living situation today?: I have a steady place to live Within the past 12 months, did the food you bought not last and you didn't have the money to get more?: Sometimes True Within the past 12 months, did you worry whether your food would run out before you got money to buy more?: Sometimes True Do you have trouble paying for medicines?: No Do you have trouble getting transportation to medical appointments?: No Do you have trouble paying your heating and electricity bill?: No Do you have trouble taking care of your child, family member or friend?: No Do you have trouble with day-to-day activities such as bathing, preparing meals, shopping, managing finances, etc.?: Yes Are you currently unemployed and looking for a job?: No Are you interested in more education?: No Please select the resources that you would like help with: None Currently or been in a relationship where the following occur: I choose not to answer THRIVE Score: 2 AUDIT C Alcohol Use Questionnaire (AUDIT-C) 1. How often do you have a drink containing alcohol?: Never Total Score: 0 Score Reviewed/Action Taken: No LESA-7 AMB Questionnaire LESA-7 Date LESA - 7 assessed: 03/30/25 Feeling nervous, anxious, or on edge: 1 = Several days Not being able to stop or control worryin = Not at all Worrying too much about different things: 0 = Not at all Trouble relaxin = Not at all Being so restless that it is hard to sit still: 0 = Not at all Becoming easily annoyed or irritable: 0 = Not at all Feeling afraid as if something awful might happen: 0 = Not at all Total LESA-7 score (0-4 normal; 5-9 mild; 10-14 moderate; 15-21 severe): 1 Source: Developed by Drs. Brad Espinal, Julia Guzman, Torsten Lindsey and colleagues, with an educational greg from [employer]. LESA-7 Assessment Billing LESA-7 Assessment Tool: LESA-7 Assessment 09898 Review of Systems Const All systems reviewed & are unremarkable except as noted in HPI and below Card Denies chest pain at rest, Denies chest pain with activity, Denies edema, Denies irregular heart rhythm, Denies claudication, Denies dyspnea, Denies dyspnea on exertion, Denies orthopnea, Denies paroxysmal nocturnal dyspnea and Denies slow heart rate Resp Denies cough, Denies dyspnea and Denies dyspnea on exertion GI Denies abdominal pain, Denies change in bowel habits, Denies excessive flatus, Denies nausea and Denies vomiting Physical exam (Primary Care) Vital Signs: Last Vital Signs BP 126/60 03/30/25 11:06 BMI result Body Mass Index 30.1 BMI Assessment/Plan discussion: High BMI High, discussed plan: lifestyle, weight reduction, dietary and physical activity Tobacco/Smoking Status: Tobacco use Status Tobacco use date assessed 11/18/24 03/30/25 11:06 Patient Tobacco Use Status Former Tobacco user 03/30/25 11:06 Tobacco use type Cigarette 03/30/25 11:06 e-Cigarette/Vaping Use Never Used 03/30/25 11:06 PHQ-9: PHQ-9 Score PHQ-9: Total score 16 03/30/25 11:37 Depression Screening Interpretation: Positive (No suicidal thoughts) Depression Screening Follow-up: Existing condition, In treatment and Follow-up Visit Requested Thrive Assessment: Date of Thrive Assessment Date Thrive assessed 03/30/25 03/30/25 11:06 Currently or been in a relationship where the following occur: I choose not to answer Resp Effort & Inspection: normal respiratory effort Auscultation: clear to auscultation bilaterally Cardio Jugular venous distension: no JVD Rate: regular rate Rhythm: regular rhythm Heart sounds: S1 normal heart sound present and S2 normal heart sound present Skin Other: Open wound in abdomen Extrem General: Yes full ROM Coding Level of Care Code Est Pt Level 4 (77182) Complex EM visit Add On G2211 Diagnoses Open wound T14.8XXA Mild recurrent major depression F33.0 Type 2 diabetes mellitus with diabetic polyneuropathy, with long-term current use of insulin E11.42; Z79.4 Diabetes mellitus [facility] insulin use: with termite control servicer use Essential hypertension I10 Hypertension type: essential hypertension Dyslipidemia E78.5 Additional Codes LESA-7 Assessment Billing - LESA-7 Assessment Tool: LESA-7 Assessment 00508 ([id number]) PHQ-9 - 92279 - PHQ-9 Billing: Yes ([id number]) Time Spent (min) 23 Assessment & Plan Assessment & Plan (1) Open wound: Code(s): T14.8XXA - Other injury of unspecified body region, initial encounter Category: Medical (2) Mild recurrent major depression: Code(s): F33.0 - Major depressive disorder, recurrent, mild Category: Medical (3) Type 2 diabetes mellitus with diabetic polyneuropathy: Code(s): E11.42 - Type 2 diabetes mellitus with diabetic polyneuropathy Category: Medical Qualifiers: Diabetes mellitus termite control servicer insulin use: with [facility] use Qualified Code(s): E11.42 - Type 2 diabetes mellitus with diabetic polyneuropathy; Z79.4 - alf (current) use of insulin (4) Hypertension: Code(s): I10 - Essential (primary) hypertension Category: Medical Qualifiers: Hypertension type: essential hypertension Qualified Code(s): I10 - Essential (primary) hypertension (5) Dyslipidemia: Code(s): E78.5 - Hyperlipidemia, unspecified Category: Medical Plan The patient's diabetes management will continue with the current regimen of Metformin, Pioglitazone, and Jardiance, with a focus on monitoring blood glucose levels closely. Consideration for adjusting the dosage of Sertraline is advised due to persistent depressive symptoms, although the patient has been on this medication for over two years. For the sensation of moisture in the perianal area, the patient is advised to monitor the symptoms and consider using a protective barrier if necessary. The open wound should be monitored for signs of infection, and a visit to the wound clinic is recommended for further evaluation and management. Patient was informed and verbally consented to the use of an ambient scribe for clinic note documentation during this visit. During the visit, we discussed the importance of maintaining blood glucose levels within target ranges to manage diabetes effectively. We also talked about the potential need to adjust the Sertraline dosage to better address the patient's depressive symptoms. The patient was informed about monitoring the sensation of moisture in the perianal area and the importance of keeping the open wound clean and protected. Orders: Orders Lipid Panel 4 Months E78.5 - Hyperlipidemia, unspecified Microalbumin, Random (w Creat) 4 Months R80.9 - Proteinuria, unspecified Vitamin D 25-OH Total 4 Months E55.9 - Vitamin D deficiency, unspecified Vitamin B12 and Folate 4 Months E53.8 - Deficiency of other specified B group vitamins Comprehensive [place]. Panel Fast 4 Months E78.00 - Pure hypercholesterolemia, unspecified Complete Blood Count Auto Diff 4 Months D64.9 - Anemia, unspecified IRON PROFILE 4 Months D64.9 - Anemia, unspecified Patient Instructions: - Continue taking Metformin, Pioglitazone, and Jardiance as prescribed. - Monitor blood glucose levels regularly and report any significant changes. - Consider discussing with your doctor about adjusting the Sertraline dosage if depressive symptoms persist. - Monitor the sensation of moisture in the perianal area and use a protective barrier if needed. - Keep the open wound clean and consider visiting the wound clinic for further evaluation.
[2025-03-30 11:06] VITALS: BP 126/60; BMI 30.1
== END 2025-03-30 11:48 | disposition home or self-care (01) ==
LOC: HO.HMCH 10:50
PROVIDERS: PCP Internal Medicine; Visit Provider Internal Medicine
DX: T14.8XXA Other injury of unspecified body region, initial encounter (principal); F33.0 Major depressive disorder, recurrent, mild; E11.42 Type 2 diabetes mellitus with diabetic polyneuropathy; Z79.4 Long term (current) use of insulin; I10 Essential (primary) hypertension; E78.5 Hyperlipidemia, unspecified

== ENCOUNTER → 2025-03-30 10:50 | Outpatient (BNVA) | payer OTHER, SELFPAY | PROVIDERS: PCP Internal Medicine; Visit Provider Internal Medicine | DX: E11.42 Type 2 diabetes mellitus with diabetic polyneuropathy (principal); I10 Essential (primary) hypertension; E78.5 Hyperlipidemia, unspecified; F33.0 Major depressive disorder, recurrent, mild; R80.9 Proteinuria, unspecified; E55.9 Vitamin D deficiency, unspecified; E53.8 Deficiency of other specified B group vitamins; E78.00 Pure hypercholesterolemia, unspecified; D64.9 Anemia, unspecified; Z79.4 Long term (current) use of insulin | CPT/HCPCS: 96127; 99212 ==

== ENCOUNTER 2025-05-06 12:47 | Outpatient (AMB) | payer OTHER, SELFPAY ==
--- NOTE | 2025-05-06 13:01 | A.OFFVIS_ITS ---
Vital Signs 05/06/25 13:02 Height 5 ft 8 in Weight 198 lb 6.656 oz BMI 30.2 BP 114/54 L Blood Pressure Location Lt brachial Position Sitting Pulse 80 Pulse Source Pulse Oximeter Pulse Oximetry (%) 95 Oxygen Delivery Method Room Air Intake Visit Reasons: Type 2 dm Intake Note: Patient present today to follow up on Type 2 Diabetes Mellitus. Last Diabetic Eye exam: 06/2024 Last Podiatry Visit: Does not see a Test Engineering Intern Random Glucose: 101 mg/dl HgA1C: 8.1% 02/22/2025 Rehabilitation Caseworker Required: Yes Rehabilitation Caseworker Language: Podiatrist Services: Rehabilitation Caseworker Present Rehabilitation Caseworker Name: Luiza [id number] Information Interpreted: non-clinical & clinical Accompanied by: Spouse Allergies No Known Allergies Allergy (Verified 05/06/25 13:02) Medication List - Last Reconciled 05/06/25 by DUC Barrera alcohol swabs (Alcohol Prep Pads) 1 pad topical .8 times a day 30 days alpha lipoic acid 600 mg PO BEDTIME aspirin (Adult Aspirin Regimen) 81 mg PO DAILY 90 days atorvastatin 40 mg PO BEDTIME 90 days [bath mat As directed] blood pressure test kit-medium As directed blood sugar diagnostic (FreeStyle Test strips) 4 times a day blood-glucose meter (FreeStyle [place] kit) As directed blood-glucose sensor (Dexcom G7 Sensor device) As directed blood-glucose,latin professor,cont (Dexcom G7 Yarn Packer) As directed cholecalciferol (vitamin D3) 50 mcg PO DAILY 30 days clopidogrel (Plavix) 75 mg PO DAILY cyanocobalamin (vitamin B-12) 100 mcg PO DAILY 30 days empagliflozin (Jardiance) 25 mg PO DAILY 90 days enalapril maleate 5 mg PO DAILY gabapentin 300 mg PO BEDTIME glucose (Dex4 Glucose) 16 grams (4 x 4 gram) PO Q15M PRN insulin aspart U-100 (Novolog FlexPen U-100 Insulin aspart) subcutaneously 3 times a day; insulin glargine U-300 conc (Toujeo Max U-300 SoloStar) 62 units subcut BEDTIME lancets (FreeStyle Lancets) 4 times a day memantine 5 mg PO BID metformin 1,000 mg PO BID 90 days pantoprazole 40 mg PO BID 90 days pen needle, diabetic 4 times a day pioglitazone (Actos) 45 mg PO DAILY pregabalin 75 mg PO BEDTIME 30 days sertraline 50 mg PO BEDTIME [tray table As directed] HPI Comments Details: Patient is a 69-year-old male with DM type 2 diagnosed 20 years ago who presents for continued management of diabetes. Rehabilitation Caseworker present. The patient is accompanied by his . Hemoglobin A1c 02/22/2025 8.1%. Hemoglobin a1c is 8.7% 11/23/2024. Reviewed Dexcom data April 23 to May 06 G MT 7.5% 15% very high 27% high 56% in range 2% low He has a pattern of hypoglycemia early in the morning and hypoglycemia in the afternoon Past medical history includes : DM2, HTN, HLD Micro and macrovascular complications: : + retinopathy, + nephropathy(+ microalbumin), + neuropathy, + 3 CVA -last 2 years ago, left residual weakness, CAD, +PVD ([place]IWO). Diabetes medications: Toujeo 60 units nightly (he decreased from 70 due to lows overnight) NovoLog to 22 units before breakfast, 14 units before lunch and continue 20 units before dinner. Continue Jardiance 25 mg daily. Continue metformin 1000 mg twice daily. Continue Actos to 45 mg daily. Past medications: Januvia stopped when patient was switched to Actos. Had cellulitis with Freestyle evert. Reported diarrhea with Trulicity. Compliance: Noncompliance with diabetic diet ROS: Constitutional: No fevers or chills. Denies weight gain. Eyes: No vision changes Respiratory: No shortness of breath Cardiovascular: No chest pain. Denies leg swelling. Neurologic: No headache, dizziness, syncope Physical exam: Constitutional: Alert, in no distress. Neck: Supple, Full range of motion. No lymphadenopathy. Respiratory: Clear to auscultation. Cardiovascular: S1 S2 regular. No murmurs. 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 Right carotid artery occlusion B12 deficiency Hypertension Dyslipidemia Diabetic nephropathy associated with type 2 diabetes mellitus Proliferative diabetic retinopathy associated with type 2 diabetes mellitus Vitamin D deficiency Neuropathy Diabetes mellitus Surgical History History of umbilical hernia repair (01/05/25) H/O colonoscopy (~03/11/19) Family History Father Heart disease Mother HTN (hypertension) Social History Household Members: Spouse Housing: Apartment Are you a primary acute care physician to a significant other at home: No Do you presently have visiting nurse or other home services: No Alcohol intake: former Patient Tobacco Use Status: Former Tobacco user Tobacco use type: Cigarette e-Cigarette/Vaping Use: Never Used Second Hand Smoke Exposure: Yes Advance Directives Date on File: 08/19/24 service: No Current occupational status: disabled Cognitive needs: No Hearing needs: No Vision needs: Yes (Glasses) Physical Exam Vital Signs: Last Vital Signs Pulse 80 05/06/25 13:02 BP 114/54 L 05/06/25 13:02 Pulse Ox 95 05/06/25 13:02 Oxygen Delivery Method Room Air 05/06/25 13:02 BMI result Body Mass Index 30.2 Office Procedures Glucose Monitoring Details Details: see HPI [id number] - Glucose monitoring, continuous-physician I&R Procedure code (CPT) selection complete Results Reviewed Results Reviewed: Laboratory Tests 01/15/25 07:20 Plt Count 271 Creatinine 1.02 Estimated GFR > 60 AST 26 ALT 22 B-Natriuretic Peptide 21 Triglycerides 114 Cholesterol 109 LDL Cholesterol, Calc 58 HDL Cholesterol 29 L 25-OH Vitamin D Total 46.2 Urine Creatinine 122.24 Urine Microalbumin 21.0 Microalb/Creat Ratio 17.1 02/22/2025 Fibrosis for index is 1.45 points excluding advanced fibrosis. Assessment & Plan Assessment & Plan (1) Type 2 diabetes mellitus with diabetic polyneuropathy: Code(s): E11.42 - Type 2 diabetes mellitus with diabetic polyneuropathy Category: Medical Qualifiers: Diabetes mellitus long term care phlebotomist insulin use: with half-way use Qualified Code(s): E11.42 - Type 2 diabetes mellitus with diabetic polyneuropathy; Z79.4 - jail (current) use of insulin Plan In summary this is a 69-year-old male with type 2 diabetes with known micro and macrovascular complications with sub optimal but improving glycemic control. Increase Toujeo 62 units nightly. NovoLog to 22 units before breakfast, decrease to 12 units before lunch and take 20 units before dinner. Continue Jardiance 25 mg daily. Continue metformin 1000 mg twice daily. Continue Actos to 45 mg daily. Lifestyle modifications reviewed with the patient. He sees the natural resources extension educator. He declines referral to the alumni relations officer at this time. Reviewed proper treatment of hypoglycemia. He has glucose tablets. Follow up in 3 months for type 2 diabetes. Orders: Orders Vitamin B12 Today E11.42 - Type 2 diabetes mellitus with diabetic polyneuropathy, Z79.4 - ferry terminal supervisor (current) use of insulin, Z91.89 - Other specified personal risk factors, not elsewhere classified Hemoglobin A1c Today E11.42 - Type 2 diabetes mellitus with diabetic polyneuropathy, E11.9 - Type 2 diabetes mellitus without complications, Z79.4 - ferry terminal supervisor (current) use of insulin AMB Glucose Monitoring Today E11.9 - Type 2 diabetes mellitus without complications Lipid Panel Today E11.42 - Type 2 diabetes mellitus with diabetic polyneuropathy, E78.5 - Hyperlipidemia, unspecified, Z79.4 - jail (current) use of insulin Creatinine Today E11.42 - Type 2 diabetes mellitus with diabetic polyneuropathy, E11.9 - Type 2 diabetes mellitus without complications, Z79.4 - jail (current) use of insulin Aspartate Amino Transferase Today E11.42 - Type 2 diabetes mellitus with diabetic polyneuropathy, Z79.4 - ferry terminal supervisor (current) use of insulin Alanine Aminotransferase Today E11.42 - Type 2 diabetes mellitus with diabetic polyneuropathy, Z79.4 - ferry terminal supervisor (current) use of insulin Microalbumin, Random (w Creat) Today E11.42 - Type 2 diabetes mellitus with diabetic polyneuropathy, E11.9 - Type 2 diabetes mellitus without complications, Z79.4 - ferry terminal supervisor (current) use of insulin Medications: Changed From insulin aspart U-100 (Novolog FlexPen U-100 Insulin aspart) 18 - 22 units (0.18 - 0.22 mL) subcut TID 30 mL 5RF To insulin aspart U-100 (Novolog FlexPen U-100 Insulin aspart) subcutaneously 3 times a day; From insulin glargine U-300 conc (Toujeo Max U-300 SoloStar) 70 units (0.2333 mL) subcut BEDTIME 9 mL 5RF To insulin glargine U-300 conc (Toujeo Max U-300 SoloStar) 62 units subcut BEDTIME Patient Instructions: Diabetes medications: Toujeo 62 units nightly. NovoLog to 22 units before breakfast, decrease to 12 units before lunch and take 20 units before dinner. Continue Jardiance 25 mg daily. Continue metformin 1000 mg twice daily. Continue Actos to 45 mg daily. Medicamentos para la diabetes: Toujeo 62 unidades por la noche. NovoLog a 22 unidades antes del desayuno, reducir a 12 unidades antes del almuerzo y patel 20 unidades antes de la reginald. Continuar con Jardiance 25 mg al d?a. Continuar con metformina 1000 mg dos veces al d?a. Continuar con Actos a 45 mg al d?a. Coding Level of Care Code Est Pt Level 4 (32746) Diagnoses Type 2 diabetes mellitus with diabetic polyneuropathy, with long-term current use of insulin E11.42; Z79.4 Diabetes mellitus long term care phlebotomist insulin use: with half-way use CPT Codes Details - CPT: 62725 - Glucose monitoring, continuous-physician I&R ([id number])
[2025-05-06 13:02] VITALS: BP 114/54; PULSE 80; O2SAT 95; BMI 30.2
[2025-05-06 13:16] LABS: Glucose, Whole Blood 101 mg/dL (60-115)
== END 2025-05-06 13:34 | disposition home or self-care (01) ==
LOC: HO.ENCR 12:47
PROVIDERS: PCP Internal Medicine; Visit Provider Physician Assistant Medical
DX: E11.42 Type 2 diabetes mellitus with diabetic polyneuropathy (principal); Z79.4 Long term (current) use of insulin

== ENCOUNTER → 2025-05-06 12:47 | Outpatient (BNVA) | payer OTHER, SELFPAY | PROVIDERS: PCP Internal Medicine; Visit Provider Physician Assistant Medical | DX: E11.42 Type 2 diabetes mellitus with diabetic polyneuropathy (principal); E11.3599 Type 2 diabetes mellitus with proliferative diabetic retinopathy without macular edema, unspecified eye; E11.21 Type 2 diabetes mellitus with diabetic nephropathy; Z79.4 Long term (current) use of insulin; Z79.84 Long term (current) use of oral hypoglycemic drugs; Z91.89 Other specified personal risk factors, not elsewhere classified | CPT/HCPCS: 82947; 99212 ==

== ENCOUNTER 2025-05-11 09:54 | Outpatient (AMB) | payer OTHER, SELFPAY ==
--- NOTE | 2025-05-11 10:02 | MHC.OFFVIS ---
Intake Visit Reasons: 6 mnts Rls, Stroke Allergies No Known Allergies Allergy (Verified 05/06/25 13:02) HPI Comments Details: 69 y/o man with IDDM, occluded R ICA, chronic R MCA infarct with no signfiicant weakness, multifactorial dementia, and RLS. His reported that with medicine for anxiety he was feeling much better. No new symptoms were stroke-like symptoms. 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 Right carotid artery occlusion B12 deficiency Hypertension Dyslipidemia Diabetic nephropathy associated with type 2 diabetes mellitus Proliferative diabetic retinopathy associated with type 2 diabetes mellitus Vitamin D deficiency Neuropathy Diabetes mellitus Surgical History History of umbilical hernia repair (01/05/25) H/O colonoscopy (~03/11/19) Family History Father Heart disease Mother HTN (hypertension) Social History Household Members: Spouse Housing: Apartment Are you a primary home care chaplain to a significant other at home: No Do you presently have visiting nurse or other home services: No Alcohol intake: former Patient Tobacco Use Status: Former Tobacco user Tobacco use type: Cigarette e-Cigarette/Vaping Use: Never Used Second Hand Smoke Exposure: Yes Advance Directives Date on File: 08/19/24 service: No Current occupational status: disabled Cognitive needs: No Hearing needs: No Vision needs: Yes (Glasses) Review of Systems Const Details: Constitutional:?No fever, chills, fatigue, weight loss, or night sweats. HEENT:?No headache, vision changes, hearing loss, nasal congestion, sore throat. Neurological:?No dizziness, syncope, seizures, numbness, tingling, weakness, tremors, memory loss. Psychiatric:?No anxiety, depression, mood swings, sleep disturbance, or hallucinations. Endocrine:?No heat/cold intolerance, polydipsia, polyuria, or hair/skin changes. Hematologic/Lymphatic:?No easy bruising, bleeding, or lymphadenopathy. Integumentary (Skin):?No rash, lesions, itching, or color changes. ? Physical Exam Neuro Other: Mental Status: Alert and oriented to person, place, and time. Normal attention. Normal spontaneous speech, fluency, and comprehension. No obvious issues with mood and memory. Affect is appropriate. Cranial Nerves: CN II: Visual jeff full to confrontation, visual acuity intact. CN III, IV, : Pupils equal, round, reactive to light and accommodation. Extraocular movements are normal. CN V: Facial sensation is normal. CN VII: Facial movements symmetrical. CN VIII: Hearing intact to bedside conversation is normal. CN IX, X: Palate elevates symmetrically. CN XI: Shoulder shrug and head turn symmetrical. CN XII: Tongue midline without atrophy or fasciculations. Mild bilateral hand postural tremor Extrapyramidal: Full facial expressions and blinking. No rigidity. Movements are appropriate with no tremor or abnormality. Speech: Normal; no dysarthria or tremor. Assessment & Plan Assessment & Plan (1) Alzheimer dementia: Code(s): G30.9 - Alzheimer's disease, unspecified; F02.80 - Dementia in other diseases classified elsewhere, unspecified severity, without behavioral disturbance, psychotic disturbance, mood disturbance, and anxiety Category: Medical Qualifiers: Alzheimer's disease onset: late onset Dementia severity: mild Dementia behavioral or psychological symptom: with anxiety Qualified Code(s): G30.1 - Alzheimer's disease with late onset; F02.A4 - Dementia in other diseases classified elsewhere, mild, with anxiety (2) RLS (restless legs syndrome): Code(s): G25.81 - Restless legs syndrome Category: Medical (3) Multifactorial dementia: Comment: MRI brain WO at [facility] in Jul 2021: chronic cortical R GARY/MCA anju, and MOLD INSPECTOR/MCA territory infarcts, mod atrophy, MCAs on T2 ok EEG at office in Jul 2020: WNL NICS at [facility] in Aug 2018: R ICA occluded, Left no sig stenosis Amb EEG at [facility] in 2018: WNL CT brain WO at [facility] in March 2015: subacute right parieto-occipital wedge shaped embolic looking infarct, cerebral microvascular changes and atrophy NICS at [facility] in March 2015: occluded right ICA, left is ok. Chest xray at [facility] in March 2015: ok Routine EEG in office in April 2015: OK EEG in office in May 2016: OK EEG at office in December 2018: WNL. Code(s): F03.90 - Unspecified dementia, unspecified severity, without behavioral disturbance, psychotic disturbance, mood disturbance, and anxiety Category: Medical (4) Vascular dementia: Code(s): F01.50 - Vascular dementia, unspecified severity, without behavioral disturbance, psychotic disturbance, mood disturbance, and anxiety Category: Medical Qualifiers: Dementia severity: mild Dementia behavioral or psychological symptom: with anxiety Qualified Code(s): F01.A4 - Vascular dementia, mild, with anxiety (5) Tremor: Code(s): R25.1 - Tremor, unspecified Category: Medical (6) Right carotid artery occlusion: Code(s): I65.21 - Occlusion and stenosis of right carotid artery Category: Medical Plan Impression: 1. Multifactorial mild to moderate dementia 2. Anxiety disorder 3. Restless legs syndrome 4. Mild hand tremor 5. Occluded right internal carotid artery with patent left Recommendations: 1. Memantine 5 mg twice a day 2. Sertraline 50 mg in the morning 3. Pregabalin 75 mg at bedtime for restless legs syndrome 4. Gabapentin 300 mg at bedtime for restless legs syndrome 5. Aspirin 81 mg daily with control of other vascular risk factors Medications: New memantine 5 mg PO BID 180 tabs 1RF gabapentin 300 mg PO BEDTIME 90 caps 1RF sertraline 50 mg PO BEDTIME 90 tabs 1RF Changed From pregabalin 75 mg PO BEDTIME 30 days 30 caps 0RF To pregabalin 75 mg PO BEDTIME 90 caps 1RF 90 days Coding Level of Care Code Est Pt Level 5 (34514) Diagnoses Mild late onset Alzheimer's dementia with anxiety G30.1; F02.A4 Alzheimer's disease onset: late onset Dementia severity: mild Dementia behavioral or psychological symptom: with anxiety RLS (restless legs syndrome) G25.81 Multifactorial dementia F03.90 Mild vascular dementia with anxiety F01.A4 Dementia severity: mild Dementia behavioral or psychological symptom: with anxiety Tremor R25.1 Right carotid artery occlusion I65.21
== END 2025-05-11 10:23 | disposition home or self-care (01) ==
LOC: HO.HSM 09:55
PROVIDERS: PCP Internal Medicine; Visit Provider Psychiatry & Neurology Neurology
DX: G30.1 Alzheimer's disease with late onset (principal); F02.A4 Dementia in other diseases classified elsewhere, mild, with anxiety; G25.81 Restless legs syndrome; F01.A4 Vascular dementia, mild, with anxiety; R25.1 Tremor, unspecified; I65.21 Occlusion and stenosis of right carotid artery
CPT/HCPCS: 99214

== ENCOUNTER → 2025-05-11 09:54 | Outpatient (BNVA) | payer OTHER, SELFPAY | PROVIDERS: PCP Internal Medicine; Visit Provider Psychiatry & Neurology Neurology | DX: G30.1 Alzheimer's disease with late onset (principal); F01.A4 Vascular dementia, mild, with anxiety; G25.81 Restless legs syndrome; R25.1 Tremor, unspecified; I65.21 Occlusion and stenosis of right carotid artery | CPT/HCPCS: 99212 ==

== ENCOUNTER 2025-06-24 14:09 | Emergency (ER) | payer OTHER, SELFPAY ==
[2025-06-24 14:14] VITALS: BP 140/63; PULSE 90; RESP 18; TEMP 36.3; O2SAT 96; BMI 29.5
--- NOTE | 2025-06-24 14:14 | ED_ITS ---
HPI - General Adult General Chief complaint: General Medical Stated complaint: hands swelling Time Seen by Provider: 06/24/25 17:20 Source: patient, family and old records reviewed Mode of arrival: ambulatory Limitations: no limitations History of Present Illness ED Provider: SIRIA GOSS narrative: 70 yo male with vascular dementia, RLS, CVA, GERD, HLD, anxiety, DM2, neuropathy, HTN who notes painful itchy rash starting on palms of both hands. He and his adamantly deny any possible new exposures or chemicals. He states it is sore. This has never happened before. He has no other systemic symptoms. He has not traveled. MD complaint: hand pain/rash Onset (ago): day(s) (2) Location: left, right and upper extremity Radiation: non-radiation Severity: moderate Quality: aching Pain Consistency: intermittent Relieving factors: immobilization Exacerbating factors: movement Associated symptoms: rash Treatments prior to arrival: none Related Data Home Medications ?Medication ?Instructions ?Recorded ?Confirmed alpha lipoic acid 600 mg capsule 600 mg PO BEDTIME 03/1305/06/25 blood-glucose sensor (Dexcom G7 05/06/25 05/06/25 Sensor device) blood-glucose,automatic thread winder,cont 05/06/25 05/06/25 (Dexcom G7 Internet Sourcer) insulin aspart U-100 100 unit/mL See Rx Instructions s ubcut TID 05/06/25 05/06/25 (3 mL) subcutaneous pen (Novolog FlexPen U-100 Insulin aspart) insulin glargine U-300 conc 300 62 unit subcut BEDTIME 05/06/25 05/06/25 unit/mL (3 mL) subcutaneous pen (Toujeo Max U-300 SoloStar) Previous Rx's ?Medication ?Instructions ?Recorded alcohol swabs (Alcohol Prep Pads) 1 pad topical .8 odette es a day 30 02/28/21 days #200 ea cholecalciferol (vitamin D3) 50 50 mcg PO DAILY 30 day s #30 caps 11/15/21 mcg (2,000 unit) capsule cyanocobalamin (vitamin B-12) 100 100 mcg PO DAILY 30 days #30 tabs 11/15/21 mcg tablet lancets 28 gauge (FreeStyle #120 ea 02/25/22 Lancets) blood pressure test kit-medium #1 ea 09/03/22 tray table #1 ea 05/17/23 bath mat #1 ea 06/18/23 blood-glucose meter (FreeStyle #1 ea 03/04/24 [place] kit) blood sugar diagnostic (FreeStyle #120 ea 08/25/24 Test strips) glucose 4 gram chewable tablet 16 g (4 x 4 gram) PO Q1 5M PRN 08/31/24 (Dex4 Glucose) hypoglycemia #10 tabs aspirin 81 mg tablet,delayed 81 mg PO DAILY 90 days #9 0 tabs 01/17/25 release (Adult Aspirin Regimen) atorvastatin 40 mg tablet 40 mg PO BEDTIME 90 days #90 tabs 02/04/25 clopidogrel 75 mg tablet (Plavix) 75 mg PO DAILY #90 t abs 02/04/25 enalapril maleate 5 mg tablet 5 mg PO DAILY #90 tabs 0 02/04/25 empagliflozin 25 mg tablet 25 mg PO DAILY 90 days #90 tabs 02/22/25 (Jardiance) metformin 1,000 mg tablet 1,000 mg PO BID 90 days #180 tabs 02/22/25 pioglitazone 45 mg tablet (Actos) 45 mg PO DAILY #90 t abs 02/22/25 pantoprazole 40 mg tablet,delayed 40 mg PO BID 90 days #180 tabs 03/11/25 release pen needle, diabetic 32 gauge x #400 ea 04/17/25 1/ gabapentin 300 mg capsule 300 mg PO BEDTIME #90 caps 0 05/11/25 memantine 5 mg tablet 5 mg PO BID #180 tabs pregabalin 75 mg capsule 75 mg PO BEDTIME 90 days #90 caps 05/11/25 sertraline 50 mg tablet 50 mg PO BEDTIME #90 tabs hydrocortisone 1 % topical cream 1 appl topical BID ME N skin 06/23/25 (Anti-Itch (hydrocortisone)) irritation 2 weeks #28.4 grams prednisone 20 mg tablet 20 mg PO DAILY 4 days #4 tab s 06/24/25 Allergies Allergy/AdvReac Type Severity Reaction Status Date / Time No Known Allergies Allergy Verified 06/24/25 14:17 Review of Systems 2 Review of Systems: Constitutional : No Fever, No Chills ENT/Mouth : No Ear Pain, No Hoarseness, No sore throat Eyes: No Eye Pain, No Swelling, No Redness, No Foreign Body Cardiovascular : No Chest Pain, No SOB Respiratory : No Cough, No Dyspnea Gastrointestinal : No Nausea, No Vomiting, No Diarrhea, No abdominal Pain Genitourinary : No Dysuria, No Hematuria Musculoskeletal : positive joint pain, No Myalgias, No Joint Swelling Skin : No Skin lacerations, pos rash Neuro : No Weakness, No Numbness, No Loss of Consciousness, No Dizziness, No Headache All other systems reviewed and are negative [facility] Past Medical History Attestation statement: The following information was validated with the patient. 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 B12 deficiency Hypertension Dyslipidemia Diabetic nephropathy associated with type 2 diabetes mellitus Proliferative diabetic retinopathy associated with type 2 diabetes mellitus Vitamin D deficiency Neuropathy Diabetes mellitus Surgical History History of umbilical hernia repair (01/05/25) H/O colonoscopy (~03/11/19) Family History Family History Father Heart disease Mother HTN (hypertension) Social History Social History Household Members: Spouse Housing: Apartment Are you a primary nurse care manager to a significant other at home: No Do you presently have visiting nurse or other home services: No Alcohol intake: former Patient Tobacco Use Status: Former Tobacco user Tobacco use type: Cigarette e-Cigarette/Vaping Use: Never Used Second Hand Smoke Exposure: Yes Advance Directives: Yes Advance Directives on File: Yes Advance Directives Date on File: 08/19/24 service: No Current occupational status: disabled Cognitive needs: No Hearing needs: No Vision needs: Yes (Glasses) Physical Exam ED Vital Signs: Vital Signs - 24 hr 06/24/25 14:14 06/24/25 17:21 Temperature 97.4 F 97.3 F Pulse Rate 90 81 Respiratory Rate 18 16 Blood Pressure 140/63 H 146/74 H Pulse Oximetry 96 96 Oxygen Delivery Method Room Air Room Air BMI result Body Mass Index 29.5 Appearance: Alert. Oriented X3. No acute distress. Eyes: Pupils equal, round and reactive to light. ENT: Pharynx normal. Neck: Normal inspection. Neck supple. CVS: Normal heart rate and rhythm. Pulses normal. Respiratory: No respiratory distress. Breath sounds normal. Abdomen: Soft and nontender. Skin: Skin warm and dry. Normal skin color. Normal skin turgor. Extremities: No lower extremity edema. both hands normal nail exam, BCR, SILT intact, 2+ radial pulses, has symmetric red non blanching rash on both hands no warmth or signs of cellulitis Neuro: Oriented X 3. No motor deficit. No sensory deficit. Course Course Course Narrative: This is a rapid medical exam performed by Jaden Thomas NP: Additional HPI, ROS, PE not included below will be deferred to primary provider. Patient is a 70-year-old male with pmhx dementia, CVA, T2DM, GERD, HTN presenting to the ED with complaint of rash to bilateral hands since Friday. States rash is painful, not pruritic. Erythematous macules to bilat hands including palms, wrists. Plan: Labs Medications Administered Discontinued Medications Generic Name Dose Route Start Last Admin Trade Name Freq PRN Reason Stop Dose Admin Hydrocodone Bitart/Acetaminophen 1 tab 06/24/25 17:44 06/24/25 18:13 Hydrocodone Bit/Acetam 5/325 Tablet PO 06/24/25 17:45 1 tab ONCE ONE Administration Prednisone 20 mg 06/24/25 17:44 06/24/25 18:14 Prednisone 20 Mg Tablet PO 06/24/25 17:45 20 mg ONCE ONE Administration Medical Decision Making Medical Decision Making [facility] Narrative: 70 yo male with vascular dementia, RLS, CVA, GERD, HLD, anxiety, DM2, neuropathy, HTN now here with c/o bilateral symmetric hand rash that is almost a mirror image is it painful but not itchy - I cannot think of an exposure. I am going to order labs, RPR and start on low dose steroids and pain control. He was given reasons to return Differential Diagnosis Differential Diagnoses: The differential diagnosis associated with the presentation includes contact exposure, chemical exposure, vasculitis Admission/Observation Consideration of admission/observation: Escalation of care including admission/observation considered can be managed as outpatient Lab Data [facility] Lab Attestation statement: I reviewed the patient's lab results. 06/24/25 14:31 06/24/25 14:31 Labs: Lab Results 06/24/25 Range/Units 14:31 WBC 9.5 (4.8-10.8) X10*3/uL RBC 4.68 (4.60-5.80) X10*6/uL Hgb 12.1 L (14.0-18.0) g/dl Hct 37.5 L (42.0-52.0) % MCV 80.1 (80.0-98.0) fL MCH 25.9 L (27.0-33.0) pg MCHC 32.3 (31.0-36.0) g/dl RDW 15.4 (11.0-16.0) % Plt Count 242 (160-400) X10*3/uL MPV 9.7 (9.4-12.4) fL Immature Gran % (Auto) 0.3 (0.0-0.4) % Neut % (Auto) 65.0 (45-73) % Lymph % (Auto) 21.0 (20-40) % [place] % (Auto) 7.0 (2-11) % Eos % (Auto) 6.0 H (0-4) % Baso % (Auto) 0.7 (0-2) % Lymph # (Auto) 2.0 (1.2-4.9) X10*3/uL [place] # (Auto) 0.7 (0.1-1.2) X10*3/uL Eos # (Auto) 0.6 H (0.0-0.4) X10*3/uL Baso # (Auto) 0.1 (0.0-0.2) X10*3/uL Abs Immat Gran (auto) 0.03 (0.00-0.03) X10*3/uL Absolute Neuts (auto) 6.1 (2.0-8.3) x10*3/uL Absolute Nucleated RBC 0.000 (0.0-0.012) X10*3/uL Nucleated RBC % (auto) 0.0 (0.0-0.2) /100WBC ESR 42 H (0-15) MM/HR PT 12.7 H (10.9-12.4) SEC INR 1.1 (0.9-1.1) Sodium 140 (135-145) mmol/L Potassium 4.1 (3.3-5.1) mmol/L Chloride 109 H (96-108) mmol/L Carbon Dioxide 20 L (22-29) mmol/L Anion Gap 15 (12-20) BUN 13 (9-16) mg/dL Creatinine 1.06 (0.5-1.4) mg/dL Estim Creat Clear Calc 67.9 Estimated GFR > 60 Random Glucose 145 H (60-115) mg/dL Calcium 8.6 D (8.4-10.2) mg/dL Total Bilirubin 0.2 (0.0-1.0) mg/dL AST 25 (5-37) U/L ALT 26 (0-40) U/L Alkaline Phosphatase 98 (39-117) U/L C-Reactive Protein 3.14 H (< or = 0.50) mg/dL Total Protein 7.5 (6.5-8.0) g/dL Albumin 4.1 (3.5-5.0) g/dL T.pallidum Ab (EIA) Nonreactive (Nonreactive) Independent Historian Clinical information obtained from an independent historian. History obtained from or confirmed by: Spouse External Record Review External record reviewed: Outpatient record Discharge Plan Discharge Clinical Impression: Rash of both hands Patient Disposition: Home, Self-Care Instructions: Acute Rash (ED) Additional Instructions: labs reassuring I am unsure what caused this rash it is odd it is a mirror image. I would avoid any exposures and only use mild soap return for any worsening rash, pain, swelling please monitor blood sugars while on prednisone. Prescriptions: New prednisone 20 mg tablet 20 mg PO DAILY 4 Days Qty: 4 0RF No Action (DME) lancets [FreeStyle Lancets] 28 gauge misc See Rx Instructions .ROUTE .MEDSUPPLY Qty: 120 11RF Rx Instructions: 4 times a day (DME) blood pressure test kit-medium Kit See Rx Instructions miscellaneous .MEDSUPPLY Qty: 1 0RF Rx Instructions: As directed (DME) tray table See Rx Instructions .Route .MEDSUPPLY Qty: 1 0RF Rx Instructions: As directed (DME) bath mat See Rx Instructions .Route .MEDSUPPLY Qty: 1 0RF Rx Instructions: As directed (DME) blood-glucose meter [FreeStyle [place]] Kit See Rx Instructions .ROUTE .MEDSUPPLY Qty: 1 0RF Rx Instructions: As directed (DME) FreeStyle Test Strip See Rx Instructions .ROUTE .MEDSUPPLY Qty: 120 11RF Rx Instructions: 4 times a day aspirin [Adult Aspirin Regimen] 81 mg tablet,delayed release (DR/EC) 81 mg PO DAILY 90 Days Qty: 90 3RF clopidogrel [Plavix] 75 mg tablet 75 mg PO DAILY Qty: 90 3RF enalapril maleate 5 mg tablet 5 mg PO DAILY Qty: 90 3RF atorvastatin 40 mg tablet 40 mg PO BEDTIME 90 Days Qty: 90 3RF pantoprazole 40 mg tablet,delayed release (DR/EC) 40 mg PO BID 90 Days Qty: 180 1RF (DME) pen needle, diabetic 32 gauge x 1/6 needle See Rx Instructions .ROUTE .MEDSUPPLY Qty: 400 2RF Rx Instructions: 4 times a day hydrocortisone [Anti-Itch (HC)] 1 % cream 1 appl topical BID PRN (Reason: skin irritation) 14 Days Qty: 28.4 0RF alpha lipoic acid 600 mg capsule 600 mg PO BEDTIME cholecalciferol (vitamin D3) 50 mcg (2,000 unit) capsule 50 mcg PO DAILY 30 Days Qty: 30 6RF cyanocobalamin (vitamin B-12) 100 mcg tablet 100 mcg PO DAILY 30 Days Qty: 30 6RF alcohol swabs [Alcohol Prep Pads] Pads, Medicated 1 pad topical .8 times a day 30 Days Qty: 200 6RF (DME) Dexcom G7 Sensor Device See Rx Instructions .Route Rx Instructions: As directed (DME) Dexcom G7 Internet Sourcer Misc See Rx Instructions .Route Rx Instructions: As directed insulin glargine U-300 conc [Toujeo Max U-300 SoloStar] 300 unit/mL (3 mL) insulin pen 62 unit subcut BEDTIME insulin aspart U-100 [Novolog FlexPen U-100 Insulin] 100 unit/mL (3 mL) insulin pen See Rx Instructions subcut TID Patient Comments: 22 units before breakfast, 12 units before lunch and 20 units before dinner Rx Instructions: subcutaneously 3 times a day; glucose [Dex4 Glucose] 4 gram tablet,chewable 16 g PO Q15M PRN (Reason: hypoglycemia) Qty: 10 1RF Rx Instructions: until symptoms of low blood sugar are controlled Jardiance 25 mg tablet 25 mg PO DAILY 90 Days Qty: 90 1RF metformin 1,000 mg tablet 1,000 mg PO BID 90 Days Qty: 180 1RF pioglitazone [Actos] 45 mg tablet 45 mg PO DAILY Qty: 90 1RF Rx Instructions: Replaces pioglitazone (Actos) 30 mg daily. memantine 5 mg tablet 5 mg PO BID Qty: 180 1RF gabapentin 300 mg capsule 300 mg PO BEDTIME Qty: 90 1RF pregabalin 75 mg capsule 75 mg PO BEDTIME 90 Days Qty: 90 1RF sertraline 50 mg tablet 50 mg PO BEDTIME Qty: 90 1RF Discharge Date/Time: 06/24/25 18:39 Print Language: Mauritanian
[2025-06-24 14:38] LABS: MANUAL DIFF FLAG NO
[2025-06-24 14:39] LABS: Hematocrit 37.5 % (42.0-52.0); Hemoglobin 12.1 g/dl (14.0-18.0); Imm Gran Abs Auto 0.03 X10*3/uL (0.00-0.03); Imm Gran Pct Auto 0.3 % (0.0-0.4); Lymphocytes Absolute Auto 2.0 X10*3/uL (1.2-4.9); Mean Corpuscular HGB Conc 32.3 g/dl (31.0-36.0); Mean Corpuscular Hemoglobin 25.9 pg (27.0-33.0); Mean Corpuscular Volume 80.1 fL (80.0-98.0); NRBC Abs Auto 0.000 X10*3/uL (0.0-0.012); NRBC Pct Auto 0.0 /100WBC (0.0-0.2); Platelet Count 242 X10*3/uL (160-400); Red Blood Count 4.68 X10*6/uL (4.60-5.80); White Blood Count 9.5 X10*3/uL (4.8-10.8)
[2025-06-24 14:44] LABS: INTERNATIONAL NORM RATIO 1.1 (0.9-1.1); Prothrombin Time 12.7 SEC (10.9-12.4)
[2025-06-24 15:09] LABS: Alanine Aminotransferase 26 U/L (0-40); Albumin Level 4.1 g/dL (3.5-5.0); Alkaline Phosphatase 98 U/L (39-117); Anion Gap 15 (12-20); Aspartate Amino Transferase 25 U/L (5-37); Blood Urea Nitrogen 13 mg/dL (9-16); Calcium 8.6 mg/dL (8.4-10.2); Carbon Dioxide 20 mmol/L (22-29); Chloride 109 mmol/L (96-108); Creatinine Clr Calc Pharmacy 67.9; Estimated Glomerular Filt Rate > 60; Potassium 4.1 mmol/L (3.3-5.1); Sodium 140 mmol/L (135-145); Total Protein 7.5 g/dL (6.5-8.0)
[2025-06-24 17:21] VITALS: BP 146/74; PULSE 81; RESP 16; TEMP 36.3; O2SAT 96
[2025-06-24] MEDS: HYDROcodone Bit/Acetam 5/325 TABLET 1 TAB PO (18:13)
[2025-06-24 18:45] VITALS: BP 129/75; PULSE 71; RESP 14; TEMP 36.5; O2SAT 97
[2025-06-27 03:38] LABS: Syphilis Screen Nonreactive (Nonreactive)
== END 2025-06-24 18:39 | disposition home or self-care (01) ==
PROVIDERS: Registered Nurse Emergency; Emergency Provider Emergency Medicine; PCP Internal Medicine
DX: R21 Rash and other nonspecific skin eruption (principal); I10 Essential (primary) hypertension; E11.9 Type 2 diabetes mellitus without complications; Z86.79 Personal history of other diseases of the circulatory system; Z86.73 Personal history of transient ischemic attack (TIA), and cerebral infarction without residual deficits; Z79.899 Other long term (current) drug therapy
CPT/HCPCS: 36415; 80053; 85025; 85610; 85652; 86140; 86780; 99283

== ENCOUNTER 2025-08-05 09:15 | Outpatient (AMB) | payer OTHER, SELFPAY ==
--- NOTE | 2025-08-05 09:20 | A.OFFVIS_ITS ---
Vital Signs 08/05/25 09:24 Height 5 ft 8 in Weight 199 lb 1.239 oz BMI 30.3 BP 132/58 L Blood Pressure Location Rt brachial Position Sitting Pulse 72 Pulse Source Pulse Oximeter Pulse Oximetry (%) 97 Oxygen Delivery Method Room Air Intake Visit Reasons: DMT2 Follow-Up Intake Note: Patient present today to follow up on Type 2 Diabetes Mellitus. Last Diabetic Eye exam: approx 3-4 months Last Podiatry Visit: Does not see a Printer Operator Random Glucose: 137 mg/dl HgA1C: 7.7% 08/05/2025 Digital Photo Printer Required: Yes Digital Photo Printer Language: Will Call Order Clerk Services: Digital Photo Printer Present Digital Photo Printer Name: [facility] Asha Jenkins Information Interpreted: non-clinical & clinical Accompanied by: Spouse Allergies No Known Allergies Allergy (Verified 08/05/25 09:25) HPI Comments Details: Patient is a 70-year-old male with dementia, hypertension, dyslipidemia and DM type 2 diagnosed 20 years ago who presents for continued management of diabetes. Digital Photo Printer present. The patient is accompanied by his . Hemoglobin A1c is 7.7% down from 8.1%. Reviewed glucometer download today. In range 100% of the time. Average glucose 106. Lowest 75, highest 126. Paucity of data noted. Reviewed Dexcom data from his reader because the scanned information is incorrect. G MA 7.1% Very high 7% High 24% In range 65 Low 3% Very low 1 % Endorses lows in the morning when he wakes up. He feels dizzy and nervous. He corrects them and rechecks his blood sugar. Occasionally has a low blood sugar after breakfast. He is snacking on oranges and bananas. 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 Diabetes medications: Toujeo 60 units nightly. NovoLog to 20-22 units before breakfast, 12 units before lunch and take 20 units before dinner. Jardiance 25 mg daily. metformin 1000 mg twice daily. Actos to 45 mg daily. Past medications: Januvia stopped when patient was switched to Actos. Had cellulitis with Freestyle evert. Reported diarrhea with Trulicity and was not interested in trying another GLP1 Compliance: Noncompliance with diabetic diet Dyslipidemia is treated with atorvastatin 40 mg daily, and he takes baby aspirin. Last LDL is at target of less than 70. Hypertension is treated with enalapril 5 mg daily. Blood pressure today is 132/58. He was previously followed by [facility], but he has not had an appointment in a couple of years. He is using a cream prescribed by them. ROS: Constitutional: No fevers or chills. Denies weight gain. Eyes: No vision changes Respiratory: No shortness of breath Cardiovascular: No chest pain. Denies leg swelling. Neurologic: No headache, dizziness, syncope Physical exam: Constitutional: Alert, in no distress. Neck: Supple, Full range of motion. No lymphadenopathy. Respiratory: Clear to auscultation. Cardiovascular: S1 S2 regular. No murmurs. Psychiatric: Normal mood and affect Feet: Warm and well perfused. Intact DP pulses. No open wounds. There is some dry skin bilaterally. 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 Right carotid artery occlusion B12 deficiency Hypertension Dyslipidemia Diabetic nephropathy associated with type 2 diabetes mellitus Proliferative diabetic retinopathy associated with type 2 diabetes mellitus Vitamin D deficiency Neuropathy Diabetes mellitus Surgical History History of umbilical hernia repair (01/05/25) H/O colonoscopy (~03/11/19) Family History Father Heart disease Mother HTN (hypertension) Social History Household Members: Spouse Housing: Apartment Are you a primary animal caregiver to a significant other at home: No Do you presently have visiting nurse or other home services: No Alcohol intake: former Patient Tobacco Use Status: Former Tobacco user Tobacco use type: Cigarette e-Cigarette/Vaping Use: Never Used Second Hand Smoke Exposure: Yes Advance Directives Date on File: 08/19/24 service: No Current occupational status: disabled Cognitive needs: No Hearing needs: No Vision needs: Yes (Glasses) Physical Exam Vital Signs: Last Vital Signs Pulse 72 08/05/25 09:24 BP 132/58 L 08/05/25 09:24 Pulse Ox 97 08/05/25 09:24 Oxygen Delivery Method Room Air 08/05/25 09:24 BMI result Body Mass Index 30.3 Results AMB Hemoglobin A1c AMB Hemoglobin A1c 7.7 % Last Edit by OLGA LIDIA Black on 08/05/25 09:40 Results Reviewed Results Reviewed: Laboratory Last Values Glucose (Clinic) 137 mg/dL (60-115) H 08/05/25 09:29 Hgb A1c (Clinic) 7.7 % (4.0-6.0) H 08/05/25 09:32 Laboratory Tests 01/15/25 06/24/25 07:20 14:31 Creatinine 1.06 Estim Creat Clear Calc 67.9 Estimated GFR > 60 AST 25 ALT 26 Triglycerides 114 Cholesterol 109 LDL Cholesterol, Calc 58 HDL Cholesterol 29 L Urine Creatinine 122.24 Urine Microalbumin 21.0 Microalb/Creat Ratio 17.1 Assessment & Plan Assessment & Plan (1) Type 2 diabetes mellitus with diabetic polyneuropathy: Code(s): E11.42 - Type 2 diabetes mellitus with diabetic polyneuropathy Category: Medical Qualifiers: Diabetes mellitus superintendent container terminal insulin use: with mcc use Qualified Code(s): E11.42 - Type 2 diabetes mellitus with diabetic polyneuropathy; Z79.4 - senior care (current) use of insulin (2) Hypertension: Code(s): I10 - Essential (primary) hypertension Category: Medical Qualifiers: Hypertension type: essential hypertension Qualified Code(s): I10 - Essential (primary) hypertension (3) Dyslipidemia: Code(s): E78.5 - Hyperlipidemia, unspecified Category: Medical Plan In summary this is a 69-year-old male with type 2 diabetes with known micro and macrovascular complications with sub optimal but improving glycemic control. Reduce Toujeo to 56 units nightly. NovoLog 20 units before breakfast, 12 units before lunch and take 20 units before dinner. Continue Jardiance 25 mg daily. Continue metformin 1000 mg twice daily. Continue Actos to 45 mg daily. Try administering 2 units of NovoLog prior to snacks that contain carbohydrates or sugar like fruit, bread, crackers. Lifestyle modifications reviewed with the patient. He sees the inclusion paraeducator. Reviewed proper treatment of hypoglycemia. He has glucose tablets. Continue enalapril for hypertension. Recommended low-sodium diet. Continue atorvastatin for hyperlipidemia. LDL is at goal. Referred to Podiatry. Follow up in 3 months for type 2 diabetes. Orders: Orders AMB Hemoglobin A1c Today E11.42 - Type 2 diabetes mellitus with diabetic polyneuropathy, Z79.4 - buttermaker helper (current) use of insulin Referrals Podiatry Referral E11.9 - Type 2 diabetes mellitus without complications, G62.9 - Polyneuropathy, unspecified, Z79.4 - senior care (current) use of insulin Medications: Refilled blood sugar diagnostic (FreeStyle Test strips) 4 times a day 120 ea 11RF E11.29 - Type 2 diabetes mellitus with other diabetic kidney complication, R80.9 - Proteinuria, unspecified, Z79.4 - buttermaker helper (current) use of insulin Patient Instructions: Decrease Toujeo to 56 units nightly. NovoLog to 20 units before breakfast, 12 units before lunch and take 20 units before dinner. Jardiance 25 mg daily. metformin 1000 mg twice daily. Actos to 45 mg daily. Try 2 units of Novolog before snacks that have carbohydrates and sugars. Reduzca la dosis de Toujeo a 56 unidades por la noche. NovoLog a 20 unidades antes del desayuno, 12 unidades antes del almuerzo y 20 unidades antes de la heating equipment repairer. Jardiance 25 mg al d?a. Metformina 1000 mg dos veces al d?a. Actos a 45 mg al d?a. Pruebe 2 unidades de NovoLog antes de refrigerios con carbohidratos y az?cares. Coding Level of Care Code Est Pt Level 4 (99366) Complex EM visit Add On G2211 Diagnoses Type 2 diabetes mellitus with diabetic polyneuropathy, with long-term current use of insulin E11.42; Z79.4 Diabetes mellitus mcc insulin use: with mcc use Essential hypertension I10 Hypertension type: essential hypertension Dyslipidemia E78.5
[2025-08-05 09:24] VITALS: BP 132/58; PULSE 72; O2SAT 97; BMI 30.3
[2025-08-05 09:34] LABS: Glucose, Whole Blood 137 mg/dL (60-115)
== END 2025-08-05 10:05 | disposition home or self-care (01) ==
LOC: HO.ENCR 09:16
PROVIDERS: PCP Internal Medicine; Visit Provider Physician Assistant Medical
DX: E11.42 Type 2 diabetes mellitus with diabetic polyneuropathy (principal); Z79.4 Long term (current) use of insulin; I10 Essential (primary) hypertension; E78.5 Hyperlipidemia, unspecified

== ENCOUNTER → 2025-08-05 09:15 | Outpatient (BNVA) | payer OTHER, SELFPAY | PROVIDERS: PCP Internal Medicine; Visit Provider Physician Assistant Medical | DX: E11.42 Type 2 diabetes mellitus with diabetic polyneuropathy (principal); I10 Essential (primary) hypertension; E78.5 Hyperlipidemia, unspecified; Z79.4 Long term (current) use of insulin | CPT/HCPCS: 82947; 83036; 99212 ==

== ENCOUNTER 2025-08-08 10:22 | Outpatient (AMB) | payer OTHER, SELFPAY ==
--- NOTE | 2025-08-08 10:29 | A.OFFPC_ITS ---
Vital Signs 08/08/25 10:30 Height 5 ft 8 in Weight 198 lb 8 oz BMI 30.2 BP 126/50 L Blood Pressure Location Lt brachial Position Sitting Respiration 18 Pulse 86 Pulse Source Pulse Oximeter Temp 97.3 F Temp Source Temporal Artery Scan Pulse Oximetry (%) 94 Oxygen Delivery Method Room Air Intake Visit Reasons: dm Regulatory Assistant Required: No Accompanied by: Self / Same As Patient Allergies No Known Allergies Allergy (Verified 08/08/25 10:46) Medication List - Last Reconciled 08/08/25 by Tami Almodovar MD alcohol swabs (Alcohol Prep Pads) 1 pad topical .8 times a day 30 days alpha lipoic acid 600 mg PO BEDTIME aspirin (Adult Aspirin Regimen) 81 mg PO DAILY 90 days atorvastatin 40 mg PO BEDTIME 90 days [bath mat As directed] blood pressure test kit-medium As directed blood sugar diagnostic (FreeStyle Test strips) 4 times a day blood-glucose meter ([place] WindowsStyle [place] kit) As directed blood-glucose sensor (Optony G7 Sensor device) As directed blood-glucose,electrician apprentice,cont (Dexcom G7 Public Health Educator) As directed cholecalciferol (vitamin D3) 50 mcg PO DAILY 30 days clopidogrel (Plavix) 75 mg PO DAILY cyanocobalamin (vitamin B-12) 100 mcg PO DAILY 30 days empagliflozin (Jardiance) 25 mg PO DAILY 90 days enalapril maleate 5 mg PO DAILY gabapentin 300 mg PO BEDTIME glucose (Dex4 Glucose) 16 grams (4 x 4 gram) PO Q15M PRN hydrocortisone 1% (Anti-Itch (hydrocortisone)) 1 appl topical BID PRN 2 weeks insulin aspart U-100 (Novolog FlexPen U-100 Insulin aspart) subcutaneously 3 times a day; insulin glargine U-300 conc (Toujeo Max U-300 SoloStar) 56 units subcut BEDTIME lancets (FreeStyle Lancets) 4 times a day memantine 5 mg PO BID metformin 1,000 mg PO BID 90 days pantoprazole 40 mg PO BID 90 days pen needle, diabetic 4 times a day pioglitazone (Actos) 45 mg PO DAILY prednisone 20 mg PO DAILY 4 days pregabalin 75 mg PO BEDTIME 90 days sertraline 50 mg PO BEDTIME [tray table As directed] Tobacco use date assessed: 08/08/25 Fall risk assessment: No Falls in past year Last assessed Fall Risk: 08/08/25 Dental Screening Dental Screen Date: 08/08/25 Did you have a dental visit in the last 12 months?: No Did you have a dental problem in the last 6 months where you did not have access to dental care?: No Was dental information given to patient?: No HPI HPI Comments History of Present Illness Details The patient is a 70-year-old male presenting with a follow-up of chron ic conditions including hypertension, diabetes, and neuropathy. Hypertension is well-controlled with medication, maintaining blood pressure below 130/80 mmHg. The patient is on atorvastatin and aspirin for cardiovascular health. Type 2 Diabetes Mellitus management includes metformin, insulin, and Jardiance, with a recent HbA1c of 7.7%. Neuropathy treatment involves gabapentin and pregabalin, with a neurologist's consultation regarding their concurrent use. The patient is treated for depression with anxiety using sertraline. Dementia is managed with memantine, and the patient is oriented to person and place. Preventative care includes a flu vaccination administered at a pharmacy. 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 Right carotid artery occlusion B12 deficiency Hypertension Dyslipidemia Diabetic nephropathy associated with type 2 diabetes mellitus Proliferative diabetic retinopathy associated with type 2 diabetes mellitus Vitamin D deficiency Neuropathy Diabetes mellitus Surgical History History of umbilical hernia repair (01/05/25) H/O colonoscopy (~03/11/19) Family History Father Heart disease Mother HTN (hypertension) Social History Household Members: Spouse Housing: Apartment Are you a primary critical care nurse to a significant other at home: No Do you presently have visiting nurse or other home services: No Alcohol intake: former Patient Tobacco Use Status: Former Tobacco user Tobacco use type: Cigarette e-Cigarette/Vaping Use: Never Used Second Hand Smoke Exposure: Yes Advance Directives Date on File: 08/19/24 service: No Current occupational status: disabled Cognitive needs: No Hearing needs: No Vision needs: Yes (Glasses) Questionnaire Thrive Questionnaire Date Thrive assessed: 03/30/25 I am a: Patient What is your living situation today?: I have a steady place to live Within the past 12 months, did the food you bought not last and you didn't have the money to get more?: Sometimes True Within the past 12 months, did you worry whether your food would run out before you got money to buy more?: Sometimes True Do you have trouble paying for medicines?: No Do you have trouble getting transportation to medical appointments?: No Do you have trouble paying your heating and electricity bill?: No Do you have trouble taking care of your child, family member or friend?: No Do you have trouble with day-to-day activities such as bathing, preparing meals, shopping, managing finances, etc.?: Yes Are you currently unemployed and looking for a job?: No Are you interested in more education?: No Please select the resources that you would like help with: None Currently or been in a relationship where the following occur: I choose not to answer THRIVE Score: 2 LESA-7 AMB Questionnaire LESA-7 Date LESA - 7 assessed: 03/30/25 Source: Developed by Drs. Brad Espinal, Julia Guzman, Torsten Lindsey and colleagues, with an educational greg from [employer]. Review of Systems Const All systems reviewed & are unremarkable except as noted in HPI and below Card Denies chest pain at rest, Denies chest pain with activity, Denies edema, Denies irregular heart rhythm, Denies claudication, Denies dyspnea, Denies dyspnea on exertion, Denies orthopnea, Denies paroxysmal nocturnal dyspnea and Denies slow heart rate Resp Denies cough, Denies dyspnea and Denies dyspnea on exertion Musc Denies atrophy, Denies deformity and Denies limited range of motion Skin/Breast Denies bleeding lesions, Denies changing lesions and Denies rash Physical exam (Primary Care) Vital Signs: Last Vital Signs Temp 97.3 F 08/08/25 10:30 Pulse 86 08/08/25 10:30 Resp 18 08/08/25 10:30 BP 126/50 L 08/08/25 10:30 Pulse Ox 94 08/08/25 10:30 Oxygen Delivery Method Room Air 08/08/25 10:30 BMI result Body Mass Index 30.2 BMI Assessment/Plan discussion: High BMI High, discussed plan: lifestyle, weight reduction, dietary and physical activity Tobacco/Smoking Status: Tobacco use Status Tobacco use date assessed 08/08/25 08/08/25 10:39 Patient Tobacco Use Status Former Tobacco user 08/08/25 10:32 Tobacco use type Cigarette 08/08/25 10:32 e-Cigarette/Vaping Use Never Used 08/08/25 10:32 Thrive Assessment: Date of Thrive Assessment Date Thrive assessed 03/30/25 08/08/25 10:32 Currently or been in a relationship where the following occur: I choose not to answer Resp Effort & Inspection: normal respiratory effort Auscultation: clear to auscultation bilaterally Cardio Jugular venous distension: no JVD Rate: regular rate Rhythm: regular rhythm Heart sounds: S1 normal heart sound present and S2 normal heart sound present Extrem General: Yes full ROM Coding Level of Care Code Est Pt Level 4 (25624) Complex EM visit Add On G2211 Diagnoses Multifactorial dementia F03.90 Type 2 diabetes mellitus with diabetic polyneuropathy, with long-term current use of insulin E11.42; Z79.4 Diabetes mellitus correction insulin use: with manager long term care use Mild recurrent major depression F33.0 Essential hypertension I10 Hypertension type: essential hypertension Dyslipidemia E78.5 Time Spent (min) 24 Assessment & Plan Assessment & Plan (1) Multifactorial dementia: Comment: [place] brain [place] [facility] in [place] 2021: chronic cortical R GARY/MCA anju, and SUPERVISOR ELECTRIC/MCA territory infarcts, mod atrophy, MCAs on T2 ok EEG at office in Jul 2020: WNL NICS at [facility] in Aug 2018: R ICA occluded, Left no sig stenosis Amb EEG at [facility] in 2018: WNL CT brain WO at [facility] in March 2015: subacute right parieto-occipital wedge shaped embolic looking infarct, cerebral microvascular changes and atrophy NICS at [facility] in March 2015: occluded right ICA, left is ok. Chest xray at [facility] in March 2015: ok Routine EEG in office in April 2015: OK EEG in office in May 2016: OK EEG at office in December 2018: WNL. Code(s): F03.90 - Unspecified dementia, unspecified severity, without behavioral disturbance, psychotic disturbance, mood disturbance, and anxiety Category: Medical (2) Type 2 diabetes mellitus with diabetic polyneuropathy: Code(s): E11.42 - Type 2 diabetes mellitus with diabetic polyneuropathy Category: Medical Qualifiers: Diabetes mellitus correction insulin use: with correction use Qualified Code(s): E11.42 - Type 2 diabetes mellitus with diabetic polyneuropathy; Z79.4 - retirement (current) use of insulin (3) Mild recurrent major depression: Code(s): F33.0 - Major depressive disorder, recurrent, mild Category: Medical (4) Hypertension: Code(s): I10 - Essential (primary) hypertension Category: Medical Qualifiers: Hypertension type: essential hypertension Qualified Code(s): I10 - Essential (primary) hypertension (5) Dyslipidemia: Code(s): E78.5 - Hyperlipidemia, unspecified Category: Medical Plan Plan Patient was informed and verbally consented to the use of an ambient scribe for clinic note documentation during this visit. 1. Essential Hypertension The patient's hypertension is currently well-controlled with medication, maintaining blood pressure below the target of 130/80 mmHg. 2. Type 2 Diabetes Mellitus Diabetes management includes metformin, insulin, and Jardiance, with a recent HbA1c of 7.7%, indicating improvement but still above the target of 7%. 3. Neuropathy Neuropathy is being treated with gabapentin and pregabalin, and the neurologist has been consulted regarding the concurrent use of these medications. 4. Depression With Anxiety The patient is on sertraline for depression with anxiety, which is part of the ongoing management plan. 5. Dementia Dementia is managed with memantine, and the patient is oriented to person and place but not time. Orders: Orders Lipid Panel Today E78.5 - Hyperlipidemia, unspecified Microalbumin, Random (w Creat) Today R80.9 - Proteinuria, unspecified Vitamin D 25-OH Total Today E55.9 - Vitamin D deficiency, unspecified Vitamin B12 and Folate Today E53.8 - Deficiency of other specified B group vitamins Comprehensive [place]. Panel Fast Today F01.A4 - Vascular dementia, mild, with anxiety
[2025-08-08 10:30] VITALS: BP 126/50; PULSE 86; RESP 18; TEMP 36.3; O2SAT 94; BMI 30.2
== END 2025-08-08 10:59 | disposition home or self-care (01) ==
LOC: HO.HMCH 10:23
PROVIDERS: PCP Internal Medicine; Visit Provider Internal Medicine
DX: F03.90 Unspecified dementia, unspecified severity, without behavioral disturbance, psychotic disturbance, mood disturbance, and anxiety (principal); E11.42 Type 2 diabetes mellitus with diabetic polyneuropathy; Z79.4 Long term (current) use of insulin; F33.0 Major depressive disorder, recurrent, mild; I10 Essential (primary) hypertension; E78.5 Hyperlipidemia, unspecified

== ENCOUNTER → 2025-08-08 10:22 | Outpatient (BNVA) | payer OTHER, SELFPAY | PROVIDERS: PCP Internal Medicine; Visit Provider Internal Medicine | DX: I10 Essential (primary) hypertension (principal); E11.42 Type 2 diabetes mellitus with diabetic polyneuropathy; E78.5 Hyperlipidemia, unspecified; F41.8 Other specified anxiety disorders; Z79.4 Long term (current) use of insulin; Z79.84 Long term (current) use of oral hypoglycemic drugs; F01.A4 Vascular dementia, mild, with anxiety | CPT/HCPCS: 99212 ==

== ENCOUNTER 2025-09-03 07:22 | Outpatient (REF) | payer OTHER, SELFPAY ==
[2025-09-03 07:37] LABS: MANUAL DIFF FLAG NO
[2025-09-03 08:20] LABS: Hematocrit 41.3 % (42.0-52.0); Hemoglobin 12.5 g/dl (14.0-18.0); Imm Gran Abs Auto 0.02 X10*3/uL (0.00-0.03); Imm Gran Pct Auto 0.4 % (0.0-0.4); Lymphocytes Absolute Auto 1.6 X10*3/uL (1.2-4.9); Mean Corpuscular HGB Conc 30.3 g/dl (31.0-36.0); Mean Corpuscular Hemoglobin 25.0 pg (27.0-33.0); Mean Corpuscular Volume 82.6 fL (80.0-98.0); NRBC Abs Auto 0.000 X10*3/uL (0.0-0.012); NRBC Pct Auto 0.0 /100WBC (0.0-0.2); Platelet Count 228 X10*3/uL (160-400); Red Blood Count 5.00 X10*6/uL (4.60-5.80); White Blood Count 5.6 X10*3/uL (4.8-10.8)
[2025-09-03 08:48] LABS: Alanine Aminotransferase 25 U/L (0-40); Albumin Level 4.2 g/dL (3.5-5.0); Alkaline Phosphatase 81 U/L (39-117); Anion Gap 12 (12-20); Aspartate Amino Transferase 24 U/L (5-37); Blood Urea Nitrogen 18 mg/dL (9-16); Calcium 9.3 mg/dL (8.4-10.2); Carbon Dioxide 26 mmol/L (22-29); Chloride 110 mmol/L (96-108); Cholesterol 124 mg/dL (<200); Estimated Glomerular Filt Rate > 60; HDL Cholesterol 31 mg/dL (>40); Iron 47 mcg/dL (45-160); Percent Iron Saturation 14 % (15-50); Potassium 4.5 mmol/L (3.3-5.1); Sodium 143 mmol/L (135-145); Total Iron Binding Capacity 348 mcg/dL (228-428); Total Protein 7.3 g/dL (6.5-8.0); Triglycerides 100 mg/dL (<150); Unsaturated Iron Binding 301 ug/dL
[2025-09-03 08:59] LABS: Cholesterol 124 mg/dL (<200); HDL Cholesterol 32 mg/dL (>40); Triglycerides 101 mg/dL (<150)
[2025-09-03 09:15] LABS: Microalbum/Creatinine Ratio Ur 46.8 ug/mg cr (<30)
[2025-09-03 09:28] LABS: Folate 7.8 ng/mL (> or = 4.0); Vitamin B12 438 pg/mL (200-900)
== END 2025-09-03 07:23 | disposition home or self-care (01) ==
LOC: HO.LAB 07:22
PROVIDERS: Physician Assistant Medical; PCP Internal Medicine; Visit Provider Internal Medicine
DX: E11.42 Type 2 diabetes mellitus with diabetic polyneuropathy (principal); E78.5 Hyperlipidemia, unspecified; E55.9 Vitamin D deficiency, unspecified; E53.8 Deficiency of other specified B group vitamins; E78.00 Pure hypercholesterolemia, unspecified; D64.9 Anemia, unspecified; R80.9 Proteinuria, unspecified; Z79.4 Long term (current) use of insulin
CPT/HCPCS: 36415; 80053; 80061; 82043; 82306; 82570; 82607; 82746; 83036; 83540; 85025

== ENCOUNTER 2025-09-09 09:15 | Outpatient (AMB) | payer OTHER, SELFPAY ==
--- NOTE | 2025-09-09 09:21 | A.OFFVIS_ITS ---
Vital Signs 09/09/25 09:26 Height 5 ft 8 in Weight 199 lb 15.348 oz BMI 30.4 BP 116/58 L Blood Pressure Location Lt brachial Position Sitting Pulse 75 Pulse Source Pulse Oximeter Pulse Oximetry (%) 96 Oxygen Delivery Method Room Air Intake Visit Reasons: Type II diabetes Intake Note: Patient present today to follow up on Type 2 Diabetes Mellitus. Last Diabetic Eye exam: approx 4 months Last Podiatry Visit: Does not see a Allergy And Immunology Specialist Random Glucose: mg/dl HgA1C: 7.6% 09/03/2025 Concrete Hopper Operator Required: Yes Concrete Hopper Operator Language: Airfreight Operations Agent Services: Concrete Hopper Operator Present Concrete Hopper Operator [place] [facility] [place] Information Interpreted: non-clinical & clinical Accompanied by: Spouse Allergies No Known Allergies Allergy (Verified 09/09/25 09:27) Medication List - Last Reconciled 09/09/25 by DUC Barrera alcohol swabs (Alcohol Prep Pads) 1 pad topical .8 times a day 30 days alpha lipoic acid 600 mg PO BEDTIME aspirin (Adult Aspirin Regimen) 81 mg PO DAILY 90 days atorvastatin 40 mg PO BEDTIME 90 days [bath mat As directed] blood pressure test kit-medium As directed blood sugar diagnostic (FreeStyle Test strips) 4 times a day blood-glucose meter (FreeStyle [place] kit) As directed blood-glucose sensor (Dexcom G7 Sensor device) As directed blood-glucose,calcine furnace loader,cont (Dexcom G7 Core Mounter) As directed cholecalciferol (vitamin D3) 50 mcg PO DAILY 30 days clopidogrel (Plavix) 75 mg PO DAILY cyanocobalamin (vitamin B-12) 100 mcg PO DAILY 30 days empagliflozin (Jardiance) 25 mg PO DAILY 90 days enalapril maleate 5 mg PO DAILY gabapentin 300 mg PO BEDTIME glucose (Dex4 Glucose) 16 grams (4 x 4 gram) PO Q15M PRN hydrocortisone 1% (Anti-Itch (hydrocortisone)) 1 appl topical BID PRN 2 weeks insulin aspart U-100 (Novolog FlexPen U-100 Insulin aspart) subcutaneously 3 times a day; insulin glargine U-300 conc (Toujeo Max U-300 SoloStar) 56 units subcut BEDTIME lancets (FreeStyle Lancets) 4 times a day memantine 5 mg PO BID metformin 1,000 mg PO BID 90 days pantoprazole 40 mg PO BID 90 days pen needle, diabetic 4 times a day pioglitazone (Actos) 45 mg PO DAILY prednisone 20 mg PO DAILY 4 days pregabalin 75 mg PO BEDTIME 90 days sertraline 50 mg PO BEDTIME [tray table As directed] HPI Comments Details: Patient is a 70-year-old male with dementia, hypertension, dyslipidemia and DM type 2 diagnosed 20 years ago who presents for continued management of diabetes. Concrete Hopper Operator present. The patient is accompanied by his . Hemoglobin A1c is 7.6% 09/09/2025. Reviewed Dexcom data G MA 7.2% 7% very high 29% high 62% in range 2% low They tell me his CGM is alerting to low blood sugars a few times per week around [place]. The data on his Dexcom does not show lows at this time, but there were occasional low sugars mid afternoon. Patient says low blood sugars in the afternoon are rare.. He does not have symptoms when he gets the alert in the morning even when it says that his blood sugar is in the 50s, and they do not treat the low. 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 Diabetes medications: Toujeo 56 units nightly. NovoLog to 20-22 units before breakfast, 12 units before lunch and take 20 units before dinner. Jardiance 25 mg daily. metformin 1000 mg twice daily. Actos to 45 mg daily. Past medications: Januvia stopped when patient was switched to Actos. Had cellulitis with Freestyle evert. Reported diarrhea with Trulicity and was not interested in trying another GLP1 Compliance: Noncompliance with diabetic diet Dyslipidemia is treated with atorvastatin 40 mg daily, and he takes baby aspirin. Last LDL is at target of less than 70. Hypertension is treated with enalapril 5 mg daily. ROS: Constitutional: No fevers or chills. Denies weight gain. Eyes: No vision changes Respiratory: No shortness of breath Cardiovascular: No chest pain. Denies leg swelling. Neurologic: No headache, dizziness, syncope Endocrine: No polyuria or polydipsia, no hyperhidrosis Physical exam: Constitutional: Alert, in no distress. Neck: Supple, Full range of motion. No lymphadenopathy. Respiratory: Clear to auscultation. Cardiovascular: S1 S2 regular. No murmurs. 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 Right carotid artery occlusion B12 deficiency Hypertension Dyslipidemia Diabetic nephropathy associated with type 2 diabetes mellitus Proliferative diabetic retinopathy associated with type 2 diabetes mellitus Vitamin D deficiency Neuropathy Diabetes mellitus Surgical History History of umbilical hernia repair (01/05/25) H/O colonoscopy (~03/11/19) Family History Father Heart disease Mother HTN (hypertension) Social History Household Members: Spouse Housing: Apartment Are you a primary patient care technician instructor to a significant other at home: No Do you presently have visiting nurse or other home services: No Alcohol intake: former Patient Tobacco Use Status: Former Tobacco user Tobacco use type: Cigarette e-Cigarette/Vaping Use: Never Used Second Hand Smoke Exposure: Yes Advance Directives Date on File: 08/19/24 service: No Current occupational status: disabled Cognitive needs: No Hearing needs: No Vision needs: Yes (Glasses) Physical Exam Vital Signs: Last Vital Signs Pulse 75 09/09/25 09:26 BP 116/58 L 09/09/25 09:26 Pulse Ox 96 09/09/25 09:26 Oxygen Delivery Method Room Air 09/09/25 09:26 BMI result Body Mass Index 30.4 Office Procedures Glucose Monitoring Details Details: see [facility] [id number] - Glucose monitoring, continuous-physician I&R Procedure code (CPT) selection complete Results Reviewed Results Reviewed: Laboratory Last Values Glucose (Clinic) 206 mg/dL (60-115) H 09/09/25 09:31 Laboratory Tests 09/03/25 09/03/25 07:30 07:36 Creatinine 1.16 Estimated GFR > 60 Hemoglobin A1c % 7.6 H AST 24 ALT 25 Alkaline Phosphatase 81 Triglycerides 101 Cholesterol 124 LDL Cholesterol, Calc 72 HDL Cholesterol 32 L Vitamin B12 438 Urine Creatinine 59.75 Urine Microalbumin 28.0 Microalb/Creat Ratio 46.8 H Assessment & Plan Assessment & Plan (1) Type 2 diabetes mellitus with diabetic polyneuropathy: Code(s): E11.42 - Type 2 diabetes mellitus with diabetic polyneuropathy Category: Medical Qualifiers: Diabetes mellitus intermediate insulin use: with intermediate use Qualified Code(s): E11.42 - Type 2 diabetes mellitus with diabetic polyneuropathy; Z79.4 - [facility] (current) use of insulin (2) Hypertension: Code(s): I10 - Essential (primary) hypertension Category: Medical Qualifiers: Hypertension type: essential hypertension Qualified Code(s): I10 - Essential (primary) hypertension (3) Dyslipidemia: Code(s): E78.5 - Hyperlipidemia, unspecified Category: Medical Plan In summary this is a 69-year-old male with type 2 diabetes with known micro and macrovascular complications with sub optimal but improving glycemic control. If low blood sugars at night are confirmed by checking fingersticks, decrease Toujeo from 56 to 52 units nightly. NovoLog 20-22 units before breakfast, 12 units before lunch and take 20 units before dinner. Continue Jardiance 25 mg daily. Continue metformin 1000 mg twice daily. Continue Actos to 45 mg daily. Administer 2 units of NovoLog prior to snacks that contain carbohydrates or sugar like fruit, bread, crackers. Lifestyle modifications reviewed with the patient. Reviewed proper treatment of hypoglycemia. He has glucose tablets. Continue enalapril for hypertension. Recommended low-sodium diet. Continue atorvastatin for hyperlipidemia. LDL is at goal. Follow up in 3 months for type 2 diabetes. Orders: Orders AMB Glucose Monitoring Today E11.9 - Type 2 diabetes mellitus without complications Patient Instructions: Diabetes medications: Toujeo 60 units nightly. NovoLog to 20-22 units before breakfast, 12 units before lunch and take 20 units before dinner. Jardiance 25 mg daily. metformin 1000 mg twice daily. Actos to 45 mg daily. If low blood sugars at night are confirmed by checking fingersticks, decrease Toujeo from 56 to 52 units nightly. If you experience low blood sugar (under 70), treat this by eating a chewable fruit candy like skittles or jelly beans (about 8 pieces), 4 ounces (1/2 cup) of fruit juice (not diet), 1 tablespoon of honey or 4 glucose tablets. If your blood sugar is under 50, take double the amount of one of the above. Recheck your blood sugar in 15 minutes. 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
[2025-09-09 09:26] VITALS: BP 116/58; PULSE 75; O2SAT 96; BMI 30.4
[2025-09-09 09:36] LABS: Glucose, Whole Blood 206 mg/dL (60-115)
== END 2025-09-09 10:03 | disposition home or self-care (01) ==
LOC: HO.ENCR 09:15
PROVIDERS: PCP Internal Medicine; Visit Provider Physician Assistant Medical
DX: E11.42 Type 2 diabetes mellitus with diabetic polyneuropathy (principal); Z79.4 Long term (current) use of insulin; I10 Essential (primary) hypertension; E78.5 Hyperlipidemia, unspecified

== ENCOUNTER → 2025-09-09 09:15 | Outpatient (BNVA) | payer OTHER, SELFPAY | PROVIDERS: PCP Internal Medicine; Visit Provider Physician Assistant Medical | DX: E11.42 Type 2 diabetes mellitus with diabetic polyneuropathy (principal); I10 Essential (primary) hypertension; E78.5 Hyperlipidemia, unspecified | CPT/HCPCS: 82947; 99212 ==

== ENCOUNTER 2025-09-12 08:41 | Outpatient (AMB) | payer OTHER, SELFPAY ==
[2025-09-12 08:56] VITALS: BMI 30.3
--- NOTE | 2025-09-12 08:56 | A.OFFVIS_ITS ---
Vital Signs 09/12/25 08:56 Height 5 ft 8 in Weight 199 lb BMI 30.3 Intake Visit Reasons: Polyneuropathy, Type II diabetes Intake Note: Niya is a 70 year old male who presents today as a new patient for a diabetic foot exam. Patient states his glucose is currently at 98 and his last A1c was 7.6 %. He denies experiencing numbness or tingling in his feet and he has no previous history of wounds or amputation. Patient mentions he has something on the bottom of his right hallux that is bothering him Vice President Of Advertising Required: Yes Vice President Of Advertising Services: Vice President Of Advertising Present Vice President Of Advertising Name: [id number] Allergies No Known Allergies Allergy (Verified 09/12/25 08:57) HPI Comments Details: The patient is a 70-year-old male with a PMH as seen below presenting for a diabetic foot exam. Patient states he has been experiencing pain to the plantar aspect of the right hallux for approximately three days attributed to dry skin. He denies any purulence, bleeding, or drainage from the site. The patient states his A1c is 7.6, although he states his most recent glucose reading was 98 mg/dL. The patient reports no numbness or tingling in the feet. The patient has a history of varicose veins, for which compression socks are worn intermittently and patient states he is under the care of vascular. He denies any recent pedal injuries. Denies any other pedal concerns. Patient was accompanied by his . 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 Right carotid artery occlusion B12 deficiency Hypertension Dyslipidemia Diabetic nephropathy associated with type 2 diabetes mellitus Proliferative diabetic retinopathy associated with type 2 diabetes mellitus Vitamin D deficiency Neuropathy Diabetes mellitus Surgical History History of umbilical hernia repair (01/05/25) H/O colonoscopy (~03/11/19) Family History Father Heart disease Mother HTN (hypertension) Social History Household Members: Spouse Housing: Apartment Are you a primary geriatric care manager to a significant other at home: No Do you presently have visiting nurse or other home services: No Alcohol intake: former Patient Tobacco Use Status: Former Tobacco user Tobacco use type: Cigarette e-Cigarette/Vaping Use: Never Used Second Hand Smoke Exposure: Yes Advance Directives Date on File: 08/19/24 service: No Current occupational status: disabled Cognitive needs: No Hearing needs: No Vision needs: Yes (Glasses) Review of Systems Const Details: - Neurological: Denies numbness or tingling in the feet - Dermatological: Reports fissure under the right hallux with pain associated. - Endocrine: Reports a recent blood glucose level of 98 mg/dL. All systems reviewed & are unremarkable except as noted in HPI and below Physical Exam Vital Signs: BMI result Body Mass Index 30.3 Extrem Other: B/L LE Focused Physical Exam: Derm: Fissures noted to the plantar aspect of the feet with a deep fissure noted to the plantar sulcus of the right hallux. No active bleeding, purulence, or drainage noted. Xerosis of skin noted. Skin supple and turgor WNL for age. Toenails x10 noted to be slightly thickened, of normal length with subungual debris. No clinical signs of infection noted. Vasc: DP pulses mildly palpable. PT pulses nonpalpable. CFT < 3 secs. Temp gradient warm to warm. Pedal hair absent. Varicosities noted, worse to the left. Neuro: Protective sensations grossly diminished to light touch and monofilament testing. MSK: Pain on palpation to the plantar sulcus of the right hallux at the site of the fissure. No fluctuance or crepitus noted. ROM of the forefoot, hindfoot, and ankles WNL. Collapse of arches noted. No other gross abnormalities noted. Office Procedures AMB Debridement/Avulsion Podia Details: Applied neosporin and a bandaid to the right hallux sulcus at the site of the fissure. Procedure code (CPT) selection complete Diabetic Foot Exam G9226 - Diabetic Foot Exam Office Meds Triple Antibiotic 3.5 mg-400 unit-5,000 unit topical ointment packet Performing Provider: Shanda Gonzalez DPM Performing Location: [facility] [place] [facility] Administered by: Shanda Gonzalez DPM on 09/12/25 12:27 Dose Route Admin Location Dispensed Lot Number Expiration Date [facility] [place] Electrical Manager 1 appl topical 1 appl [id number] [place] Results Reviewed Results Reviewed: Laboratory Tests 09/03/25 09/09/25 07:36 09:31 Glucose (Clinic) 206 H Hemoglobin A1c % 7.6 H Assessment & Plan Assessment & Plan (1) Diabetes mellitus: Code(s): E11.9 - Type 2 diabetes mellitus without complications Category: Medical Qualifiers: Diabetes mellitus complication detail: with microalbuminuria Diabetes mellitus complication status: with kidney complications Diabetes mellitus intermediate insulin use: with intermediate card tender use Diabetes mellitus type: type 2 Qualified Code(s): E11.29 - Type 2 diabetes mellitus with other diabetic kidney complication; R80.9 - Proteinuria, unspecified; Z79.4 - skilled nursing (current) use of insulin (2) Neuropathy: Code(s): G62.9 - Polyneuropathy, unspecified Category: Medical (3) Type 2 diabetes mellitus with diabetic polyneuropathy: Code(s): E11.42 - Type 2 diabetes mellitus with diabetic polyneuropathy Category: Medical Qualifiers: Diabetes mellitus intermediate insulin use: with intermediate card tender use Qualified Code(s): E11.42 - Type 2 diabetes mellitus with diabetic polyneuropathy; Z79.4 - terminal computer operator (current) use of insulin (4) Fissures in skin of both feet: Code(s): R23.4 - Changes in skin texture Category: Medical (5) Xerosis of skin: Code(s): L85.3 - Xerosis cutis Category: Medical (6) Collapsed arches: Code(s): M21.40 - Flat foot [pes planus] (acquired), unspecified foot Category: Medical Qualifiers: Laterality: bilateral Qualified Code(s): M21.41 - Flat foot [pes planus] (acquired), right foot; M21.42 - Flat foot [pes planus] (acquired), left foot (7) Tinea unguium: Code(s): B35.1 - Tinea unguium Category: Medical Plan Patient was informed and verbally consented to the use of an ambient scribe for clinic note documentation during this visit. Educated the patient on diabetes and the effects on the lower extremities. I discussed with the patient the importance of managing the fissure under the right hallux by applying Neosporin and a Band-Aid daily. We also talked about the use of ammonium lactate cream to prevent further skin cracking. I emphasized the need for diabetic shoes and inserts to support foot health and prevent complications. Follow-up care was arranged for nine weeks to monitor progress and provide routine nail care. - Applied neosporin and a bandaid to the right hallux sulcus at the site of the fissure. - Prescribed ammonium lactate cream to moisturize the feet and prevent further fissures. - Prescribed diabetic shoes and inserts to support foot structure and prevent complications. - Advised patient to avoid barefoot walking and to wear supportive shoe gear. - Continue using compression stockings. - Continue diabetic management as per PCP. RTC in 9 weeks for routine diabetic nail care. Orders: Orders AMB Diabetic Foot Exam Today E11.29 - Type 2 diabetes mellitus with other marcell betic kidney complication, E11.42 - Type 2 diabetes mellitus with diabetic polyneuropathy, G62.9 - Polyneuropathy, unspecified, R80.9 - Proteinuria, unspecified, Z79.4 - terminal computer operator (current) use of insulin AMB Debridement/Avulsion Podiatry Today L85.3 - Xerosis cutis, R23.4 - Changes in skin texture Medications: New ammonium lactate 12% 1 appl topical DAILY 385 grams 0RF L85.3 - Xerosis cutis, R23.4 - Changes in skin texture [Diabetic shoes and inserts] As directed 1 ea 0RF E11.29 - Type 2 diabetes mellitus with other diabetic kidney complication, E11.42 - Type 2 diabetes mellitus with diabetic polyneuropathy, G62.9 - Polyneuropathy, unspecified, M21.40 - Flat foot [pes planus] (acquired), unspecified foot, R80.9 - Proteinuria, unspecified, Z79.4 - terminal computer operator (current) use of insulin Coding Level of Care Code New Pt Level 4 (35346) Diagnoses Type 2 diabetes mellitus with microalbuminuria, with long-term current use of insulin E11.29; R80.9; Z79.4 Diabetes mellitus complication detail: with microalbuminuria Diabetes mellitus complication status: with kidney complications Diabetes mellitus intermediate insulin use: with intermediate card tender use Diabetes mellitus type: type 2 Neuropathy G62.9 Type 2 diabetes mellitus with diabetic polyneuropathy, with long-term current use of insulin E11.42; Z79.4 Diabetes mellitus intermediate card tender insulin use: with intermediate use Fissures in skin of both feet R23.4 Xerosis of skin L85.3 Pes planus of both feet M21.41; M21.42 Laterality: bilateral Tinea unguium B35.1 CPT Codes Diabetic Foot Exam - CPT: G9226 - Diabetic Foot Exam ([id number]) Time Spent (min) 46
== END 2025-09-12 09:16 | disposition home or self-care (01) ==
LOC: HO.HPODS 08:42
PROVIDERS: PCP Internal Medicine; Visit Provider Student in an Organized Health Care Education/Training Program
DX: E11.29 Type 2 diabetes mellitus with other diabetic kidney complication (principal); R80.9 Proteinuria, unspecified; Z79.4 Long term (current) use of insulin; G62.9 Polyneuropathy, unspecified; E11.42 Type 2 diabetes mellitus with diabetic polyneuropathy; R23.4 Changes in skin texture; L85.3 Xerosis cutis; M21.41 Flat foot [pes planus] (acquired), right foot; M21.42 Flat foot [pes planus] (acquired), left foot; B35.1 Tinea unguium
CPT/HCPCS: 99204; G9226

== ENCOUNTER → 2025-09-12 08:41 | Outpatient (BNVA) | payer OTHER, SELFPAY | PROVIDERS: PCP Internal Medicine; Visit Provider Student in an Organized Health Care Education/Training Program | DX: E11.29 Type 2 diabetes mellitus with other diabetic kidney complication (principal); R80.9 Proteinuria, unspecified; Z79.4 Long term (current) use of insulin; G62.9 Polyneuropathy, unspecified; R23.4 Changes in skin texture; L85.3 Xerosis cutis; M21.41 Flat foot [pes planus] (acquired), right foot; M21.42 Flat foot [pes planus] (acquired), left foot; B35.1 Tinea unguium | CPT/HCPCS: 99202 ==